=== PATIENT | male | born 1945 | race Caucasian/White ===

== ENCOUNTER → 2016-07-22 | Outpatient (CLI) | payer BC ==
[~2016-07-22] MED LIST: ALPRPOW PO; ASPI81TA28 PO; ATOR-26 PO; CHOL20007 PO; CIPR-255 PO; COEN1CAP7 PO; FERR324T PO; MISCCAP69 PO; MULT-513 PO; PHEN-775 PO; PRLSR20 PO; SERT-234 PO; SLWMEC PO; [UNRECOGNIZED DRUG - OTHER]
--- NOTE | 2016-07-28 11:17 | CODING QUERY MEDICAL NECESSITY ---
CQSUPPORTING DIAGNOSIS NEEDED A supporting diagnosis is required for the test/procedure performed on this patient in order for us to be reimbursed by the patient's insurance. Please provide a supporting diagnosis for the following test/procedure listed below next to the test name along with your signature. *If there is no additional diagnosis for this patient that would support the following test/procedure please document that below next to the test/procedure. Test(s)/Procedure(s) that require a supporting diagnosis: DOS 07/22/16 URINE CULTURE Provider Signature: Date: Thank you Tessa Herman [employer] Once completed, please kindly fax back to [phone] For questions please call [phone]
== END | disposition home or self-care (01) ==
LOC: C.LABSPEC 17:15
PROVIDERS: ATTEND Urology
DX: C67.9 Malignant neoplasm of bladder, unspecified (principal); R31.29 Other microscopic hematuria

== ENCOUNTER → 2016-08-02 | Outpatient (CLI) | payer BC ==
[~2016-08-02] MED LIST changes: -PRLSR20 PO; -[UNRECOGNIZED DRUG - OTHER]
--- NOTE | 2016-08-02 13:59 | ECHOCARDIOGRAM REPORT ---
*NOTICE TO RECEIVING [employer] This information is strictly Confidential and protected under [place] law. [place] law prohibits you from making any further disclosure of this information unless further disclosure is expressly permitted by the written consent of the person to whom it pertains or is authorized by law. A general authorization for the release of medical or other information is not sufficient for this purpose. Hospital accepts no responsibility if the information is made available to any other person, INCLUDING THE PATIENT. Interpretation Summary * Name: BILL MOSS Study Date: 08/02/2016 07:43 AM BP: 119/61 mmHg * Patient Location: [facility] HR: 60 * : 1945 (M/d/yyyy) Gender: Male Height: 71 in * Age: 71 yrs Ethnicity: [place] Weight: 176 lb * Ordering Physician: Frida Stroud * Referring Physician: Frida Stroud . PA-C * Performed By: Katy Haddad RDCS * * Reason For Study: PRE-OP, VALVULAR HEART DISEASE * BSA: 2.0 m2 * -- Conclusions -- * 1. Normal LV size and wall thickness. * 2. Normal LV systolic function. LVEF 65-70%. No regional wall motion abnormalities. * 3. Borderline RV size, normal RV function. * 4. Mild aortic valve sclerosis without stenosis. * 5. Normal estimated RA pressure. * 6. No prior studies for comparison. Procedure Details * A complete two-dimensional transthoracic echocardiogram was performed (2D, M-mode, Doppler and color flow Doppler). Left Ventricle * The left ventricle is grossly normal size. * There is normal left ventricular wall thickness. * Ejection Fraction = 65-70%. * No regional wall motion abnormalities noted. Right Ventricle * Borderline right ventricular enlargement. * The right ventricular systolic function is normal as assessed by tricuspid annular plane systolic excursion (TAPSE) (normal >1.5 cm). Atria * The left atrial size is normal. * Right atrial size is normal. * No ASD detected; PFO is not assessed. Mitral Valve * The mitral valve is grossly normal. * There is no mitral valve stenosis. Tricuspid Valve * The tricuspid valve is not well visualized, but is grossly normal. * There is no tricuspid stenosis. * Significant tricuspid regurgitation is absent. Aortic Valve * The aortic valve opens well. * The aortic valve is trileaflet. * Aortic valve sclerosis mild, without significant aortic valvular stenosis. * No hemodynamically significant valvular aortic stenosis. * There is no significant aortic regurgitation. Pulmonic Valve * The pulmonary valve is inadequately visualized, but the Doppler data is adequate for interpretation. * Pulmonic stenosis is absent. * Trace pulmonic valvular regurgitation. Great Vessels * The aortic root and proximal ascending aorta are normal sized. Pericardium/Pleural * There is no pericardial effusion. Great Vessels * Normal inferior vena cava size and collapsability with sniff indicates a normal right atrial pressure of 3 mmHg MMode 2D Measurements and Calculations IVSd 0.92 cm IVSs 1.4 cm LVIDd 4.7 cm LVIDs 2.9 cm LVPWd 0.82 cm LVPWs 1.4 cm IVS/LVPW 1.1 FS 37.9 % EDV(Teich) 102.4 ml ESV(Teich) 32.8 ml EF(Teich) 68.0 % EDV(cubed) 103.9 ml ESV(cubed) 24.9 ml EF(cubed) 76.0 % % IVS thick 52.5 % % LVPW thick 76.0 % LV mass(C)d 136.2 grams LV mass(C)dI 68.2 grams/m\S\2 LV mass(C)s 139.1 grams LV mass(C)sI 69.6 grams/m\S\2 CO(Teich) 3.8 l/min CI(Teich) 1.9 l/min/m\S\2 SV(Teich) 69.6 ml SI(Teich) 34.9 ml/m\S\2 CO(cubed) 4.3 l/min CI(cubed) 2.1 l/min/m\S\2 SV(cubed) 79.0 ml SI(cubed) 39.5 ml/m\S\2 Ao root diam 3.1 cm Ao root area 7.7 cm\S\2 LA dimension 3.0 cm LA/Ao 0.95 LVAd ap4 33.2 cm\S\2 LVLd ap4 8.3 cm EDV(MOD-sp4) 110.0 ml LVAs ap4 16.1 cm\S\2 LVLs ap4 6.3 cm ESV(MOD-sp4) 35.1 ml EF(MOD-sp4) 68.1 % LVAd ap2 27.5 cm\S\2 LVLd ap2 7.6 cm EDV(MOD-sp2) 85.9 ml LVAs ap2 13.7 cm\S\2 LVLs ap2 5.5 cm ESV(MOD-sp2) 29.6 ml EF(MOD-sp2) 65.5 % CO(MOD-sp4) 4.0 l/min CI(MOD-sp4) 2.0 l/min/m\S\2 SV(MOD-sp4) 74.9 ml SI(MOD-sp4) 37.5 ml/m\S\2 CO(MOD-sp2) 3.0 l/min CI(MOD-sp2) 1.5 l/min/m\S\2 SV(MOD-sp2) 56.3 ml SI(MOD-sp2) 28.2 ml/m\S\2 Doppler Measurements and Calculations MV E max guicho 73.2 cm/sec MV A max guicho 87.3 cm/sec MV E/A 0.84 MV dec time 0.27 sec Ao V2 max 147.7 cm/sec Ao max PG 8.7 mmHg Ao max PG (full) 4.0 mmHg LV V1 max PG 4.7 mmHg LV V1 max 108.8 cm/sec
== END | disposition home or self-care (01) ==
LOC: C.CPL 07:40
PROVIDERS: ATTEND Physician Assistant Medical
DX: R01.1 Cardiac murmur, unspecified (principal); I38 Endocarditis, valve unspecified

== ENCOUNTER → 2016-08-10 | Day surgery (SDC) | payer BC ==
[2016-07-28 07:46] VITALS: BMI 25.0
--- NOTE | 2016-07-28 08:26 | PAT Medication Instructions ---
Service Date July 28, 2016. Current Home Medication List Alprostadil (Bulk) (Prostaglandin E1), 1 DOSE PO UD Aspirin (Aspirin Ec), 81 MG PO QPM Atorvastatin (Lipitor), 80 MG PO HS Cholecalciferol (Vitamin D3), 1 TAB PO QPM Coenzyme Q10 (Ubidecarenone) (Coq10), 1 TAB PO QPM Ferrous Gluconate (Iron Supplement), 324 MG PO QPM Magnesium Chloride (Slow-Mag Tab), 64 MG PO QPM Misc Natural Products (Lutein Vision Blend), 1 CAP PO QPM Multivitamins/Minerals (Mvi With Minerals), 1 TAB PO QPM Sertraline (Zoloft), 100 MG PO QPM Medication Instructions For Your Scheduled Surgery - Hold the following medications as of 07/28/16: Coenzyme Q10 (Ubidecarenone) (Coq10), 1 TAB PO QPM Misc Natural Products (Lutein Vision Blend), 1 CAP PO QPM - Take the following medications as scheduled the night before surgery: Aspirin (Aspirin Ec), 81 MG PO QPM Atorvastatin (Lipitor), 80 MG PO HS Cholecalciferol (Vitamin D3), 1 TAB PO QPM Ferrous Gluconate (Iron Supplement), 324 MG PO QPM Magnesium Chloride (Slow-Mag Tab), 64 MG PO QPM Multivitamins/Minerals (Mvi With Minerals), 1 TAB PO QPM Sertraline (Zoloft), 100 MG PO QPM Alprostadil (Bulk) (Prostaglandin E1), 1 DOSE PO UD If you have any questions please call us at [phone] or [phone] or [phone]
--- NOTE | 2016-07-28 08:52 | DIAGNOSTIC IMAGING REPORT ---
CHEST PREADMISSION(PA/LAT) CLINICAL HISTORY: Preoperative chest COMPARISON STUDY: September 03, 2013 FINDINGS: The cardiac and mediastinal contours are normal. There is no evidence of focal pulmonary consolidation. There is no evidence of failure. No pleural effusions are visualized.[ IMPRESSION: No active disease in the chest. Electronically signed by: Artur Trammell M.D. 07/28/2016 8:50 AM Dictated Date/Time: 07/28/2016 8:46 AM
[2016-07-28 09:23] LABS: URINE APPEARANCE CLEAR (CLEAR); URINE BILIRUBIN NEG (NEG); URINE COLOR YELLOW; URINE NITRITE NEG (NEG); URINE SPECIFIC GRAVITY 1.011 (1.000-1.030); UROBILINOGEN NEG (NEG)
[2016-07-28 09:24] LABS: BASO % 0.4 %; BASO ABS # 0.03 K/uL (0-0.2); COMPLETE YES; EOS % 3.3 %; HEMATOCRIT 42.9 % (42-52); IG% 0.3 %; LYMPH % 31.7 %; MEAN CELL VOLUME 88.1 fL (80-100); MEAN CORPUSCULAR HEMOGLOBIN 30.2 pg (25-34); MEAN CORPUSCULAR HGB CONC 34.3 g/dl (32-36); MEAN PLATELET VOLUME 9.6 fL (7.4-10.4); MONO % 10.4 %; NEUT % 53.9 %; PLATELET COUNT 166 K/uL (130-400); RED BLOOD COUNT 4.87 M/uL (4.7-6.1); WHITE BLOOD COUNT 6.95 K/uL (4.8-10.8)
[2016-07-28 09:25] LABS: MANUAL MICROSCOPIC REQUIRED? NO; REVIEW REQ? NO
[2016-07-28 09:32] LABS: BUN/CREATININE RATIO 14.2 (10-20); CREATININE 1.1 mg/dl (0.60-1.40); POTASSIUM 4.8 mmol/L (3.5-5.1)
[~2016-08-10] VITALS: Ht 180.3 cm; Wt 84.0 kg
[~2016-08-10] MED LIST changes: +ACETAMINOPHEN 325 MG TAB PO PRN; +ATROPINE SULFATE 0.1 MG/ML 5ML SYR IV PRN; +CIPROFLOXACIN / D5W 400 MG IV SCH; +CONRAY 30% 150ML BOTTLE ONE; +EpHEDrine SULFATE INJ 50 MG/ML AMP IV PRN; +FENTANYL CITRATE INJ 50 MCG/1 ML 2 ML VIAL IV PRN; +FENTANYL CITRATE INJ 50 MCG/1 ML 2 ML VIAL ONE; +HYDROCODONE/ACETAMOPHEN 5/325MG TAB PO PRN; +HYDROmorphone INJ 1 MG/ML SYR IV PRN; +LABETALOL HCL IV 5 MG/ML 20ML IV PRN; +LACTATED RINGER'S 1000ML 1,000 ML IV SCH; +LIDOCAINE HCL 2% 2 ML VIAL (20MG/ML) ONE; +MEPERIDINE HCL 25 MG/ML CARP IV PRN; +MIDAZOLAM HCL 1 MG/ML 2ML VIAL ONE; +ONDANSETRON INJ 2 MG/ML 2 ML VIAL IV PRN; +ONDANSETRON INJ 2 MG/ML 2 ML VIAL ONE; +PROPOFOL IV EMULSION 10 MG/ML 20 ML VIAL IV ONE; +SODIUM CHLORIDE 0.9% 1000ML 1,000 ML IV SCH
[2016-08-10 05:56] VITALS: BP 130/70; PULSE 59; TEMP 36.7; O2SAT 95; Ht 180.3 cm; Wt 84.0 kg
--- NOTE | 2016-08-10 07:20 | History & Physical Bridge Note ---
H&P Re-Evaluation Bridge Note: I have examined the patient, reviewed the History & Physical and in the interval since the performance of the History & Physical I have noted the following changes of clinical significance: No changes noted
--- NOTE | 2016-08-10 08:11 | [facility] Post Operative Brief Note ---
Immediate Operative Summary Operative Date August 10, 2016. Pre-Operative Diagnosis Bladder Tumor Post-Operative Diagnosis Bladder Tumor Procedure(s) Performed Cystoscopy, Transurethral resection of the bladder tumor (medium) Surgeon Dr. Nimesh Garg Group Contract Analyst Surgeon(s) None Estimated Blood Loss 0 ml Findings Mounded area on the posterior bladder wall. Adjacent to, but not involving a well healed scar from a prior TURBT. This tumor was resected and fulgurated. Second area just below it with a similar, but less pronounced appearance. This area was fulgurated entirely. Specimens Permanent Specimen A: Bladder tumor Drains none Anesthesia gen Complication(s) None Disposition Recovery Room / PACU (stable)
--- NOTE | 2016-08-10 08:13 | Discharge Instructions ---
Discharge Instructions Date of Service August 10, 2016. Admission Reason for Admission: Bladder Cancer Discharge Discharge Diagnosis / Problem: Bladder tumor Discharge Goals Goal(s): Decrease discomfort, Improve function, Increase independence, Improve disease control Activity Recommendations Activity Limitations: resume your previous activity Lifting Limitations: none, gradually increase as tolerated Exercise/Sports Limitations: none, gradually increase as tolerated May Resume Sexual Activity: when tolerated Shower/Bathe: no limitations Driving or Machine Use: resume 1 day after discharge . Instructions / Follow-Up Instructions / Follow-Up Please keep your previously scheduled follow up appointment Discharge Diet Recommended Diet: Regular Diet Procedures Procedures Performed: Cystoscopy, Transurethral resection of the bladder tumor (medium) Pending Studies Studies pending at discharge: no Medical Emergencies . Who to Call and When: Medical Emergencies: If at any time you feel your situation is an emergency, please call 911 immediately. . Non-Emergent Contact Non-Emergency issues call your: Urologist Call Non-Emergent contact if: you have a fever, temperature is above 101.5, your pain is not controlled, your pain is worsening . . "Provider Documentation" section prepared by Earl Jaramillo. . VTE Core Measure Inpt VTE Proph given/why not?: Treatment not indicated
--- NOTE | 2016-08-10 08:51 | OPERATIVE REPORT ---
DATE OF OPERATION: 08/10/2016 PREOPERATIVE DIAGNOSIS: Bladder tumor. POSTOPERATIVE DIAGNOSIS: Bladder tumor. PROCEDURE PERFORMED: Cystoscopy, TURBT medium. SURGEON: Dr. Nimesh Garg. ANESTHESIA: General. ESTIMATED BLOOD LOSS: 0. URINE OUTPUT: Not recorded. SPECIMENS: Bladder tumor for routine pathology. DESCRIPTION OF THE PROCEDURE: Reji Morales was identified in the preoperative holding area. Appropriate informed consents were reviewed and completed and the patient was transported to the operating suite. Upon arrival he received appropriate preoperative antibiotics and general anesthesia. He was placed in dorsal lithotomy position where he was sterilely prepped and draped in standard fashion. I began the case by passing a 22-Spanish cystoscope with 30 degree lens. Inspection of the urethra revealed no stricture disease and moderately enlarged prostate without significant obstruction. Full inspection of the bladder was carried out. I performed this with both the 30 and 70 degree lens. Ureteral orifices were in orthotopic position. There were no large papillary tumors identified around the bladder neck or the trigone. As I inspected the upper aspect of the posterior wall I noted an old scar and immediately adjacent to it there was a mounded tissue which did not have a standard papillary appearance, but certainly was raised and protruding into the bladder. There also appeared to be a small amount of necrotic material on the very central area of this tumor. I additionally noted that just below this on the posterior wall there was an area of erythema which was not nearly as pronounced as the separate area but worried me for an early stage version of the same type of tumor. After identifying this I felt that using a resecting loop would be the best way to resect this tissue and I exchanged the standard cystoscope for a 24 Spanish resectoscope with the resecting loop. I resected the larger tumor area and fulgurated the base of this as well as the perimeter and then subsequently completely fulgurated the lower area that raised some concerns to me. At the conclusion there was excellent hemostasis. I emptied the bladder and I concluded the case. The specimen was passed off the table and the patient was taken to the PACU in stable condition. I attest to the content of the Intraoperative Record and any orders documented therein. Any exceptio ns are noted below.
[2016-08-10 08:55] VITALS: BP 114/65; PULSE 50; TEMP 36.5; O2SAT 96
[2016-08-10 09:25] VITALS: BP 117/63; PULSE 55; O2SAT 94
--- NOTE | 2016-08-10 09:31 | Anesthesiology Progress Note ---
Anesthesia Post Op Note Date & Time August 10, 2016 at 09:32 Vital Signs Pain Intensity: 0 Vital Signs Past 12 Hours Date Time Temp Pulse Resp B/P Pulse Ox O2 Delivery O2 Flow Rate FiO2 08/10/16 09:25 55 18 117/63 94 Room Air 08/10/16 08:55 36.5 50 16 114/65 96 Room Air 08/10/16 08:40 54 17 105/60 94 Room Air 08/10/16 08:30 49 12 109/66 98 Nasal Cannula 2 08/10/16 08:20 50 18 110/64 97 Nasal Cannula 2 08/10/16 08:10 36.2 45 13 115/71 97 Nasal Cannula 2 08/10/16 05:56 36.7 59 18 130/70 95 Room Air Notes Mental Status: alert / awake / arousable, participated in evaluation Pt Amnestic to Procedure: Yes Nausea / Vomiting: adequately controlled Pain: adequately controlled Airway Patency, RR, SpO2: stable & adequate BP & HR: stable & adequate Hydration State: stable & adequate Anesthetic Complications: no major complications apparent
[2016-08-10 09:55] VITALS: BP 119/67; PULSE 56; TEMP 36.6; O2SAT 94
== END | disposition home or self-care (01) ==
LOC: C.ACU 05:37
PROVIDERS: ATTEND Urology
DX: D09.0 Carcinoma in situ of bladder (principal); I25.10 Atherosclerotic heart disease of native coronary artery without angina pectoris; Z98.61 Coronary angioplasty status; Z79.899 Other long term (current) drug therapy; E78.00 Pure hypercholesterolemia, unspecified; E78.5 Hyperlipidemia, unspecified; Z79.82 Long term (current) use of aspirin; Z85.46 Personal history of malignant neoplasm of prostate; Z98.890 Other specified postprocedural states; Z68.25 Body mass index [BMI] 25.0-25.9, adult; Z82.49 Family history of ischemic heart disease and other diseases of the circulatory system; Z81.8 Family history of other mental and behavioral disorders; Z80.42 Family history of malignant neoplasm of prostate; Z80.8 Family history of malignant neoplasm of other organs or systems

== ENCOUNTER → 2016-11-09 | Outpatient (CLI) | payer BC ==
[~2016-11-09] MED LIST changes: -ACETAMINOPHEN 325 MG TAB PO PRN; -ATROPINE SULFATE 0.1 MG/ML 5ML SYR IV PRN; -CIPROFLOXACIN / D5W 400 MG IV SCH; -CONRAY 30% 150ML BOTTLE ONE; -EpHEDrine SULFATE INJ 50 MG/ML AMP IV PRN; -FENTANYL CITRATE INJ 50 MCG/1 ML 2 ML VIAL IV PRN; -FENTANYL CITRATE INJ 50 MCG/1 ML 2 ML VIAL ONE; -HYDROCODONE/ACETAMOPHEN 5/325MG TAB PO PRN; -HYDROmorphone INJ 1 MG/ML SYR IV PRN; -LABETALOL HCL IV 5 MG/ML 20ML IV PRN; -LACTATED RINGER'S 1000ML 1,000 ML IV SCH; -LIDOCAINE HCL 2% 2 ML VIAL (20MG/ML) ONE; -MEPERIDINE HCL 25 MG/ML CARP IV PRN; -MIDAZOLAM HCL 1 MG/ML 2ML VIAL ONE; -ONDANSETRON INJ 2 MG/ML 2 ML VIAL IV PRN; -ONDANSETRON INJ 2 MG/ML 2 ML VIAL ONE; -PHEN-775 PO; -PROPOFOL IV EMULSION 10 MG/ML 20 ML VIAL IV ONE; -SODIUM CHLORIDE 0.9% 1000ML 1,000 ML IV SCH
--- NOTE | 2016-11-09 09:36 | DIAGNOSTIC IMAGING REPORT ---
ULTRASOUND EXAM AAA SCREEN CLINICAL HISTORY: Z13.6 Screening for AAA (aortic abdominal aneurysm)[id number] COMPARISON STUDY: Abdomen and pelvis CT 09/17/2014. FINDINGS: Normal caliber abdominal aorta measuring up to 1.9 cm in diameter. Right common iliac artery measures 1 cm in diameter. Moderate calcified plaque within the left common iliac artery which is mildly distended at 1.6 cm. IMPRESSION: 1. Normal caliber abdominal aorta. 2. Mild aneurysmal dilatation of the left common iliac artery measuring 1.6 cm in diameter. Electronically signed by: Ever Johnson M.D. 11/09/2016 9:34 AM Dictated Date/Time: 11/09/2016 9:33 AM
== END | disposition home or self-care (01) ==
LOC: C.ULTR 09:03
PROVIDERS: ATTEND Internal Medicine Cardiovascular Disease
DX: Z13.6 Encounter for screening for cardiovascular disorders (principal)

== ENCOUNTER → 2016-11-18 | Outpatient (CLI) | payer BC ==
[2016-11-18 13:02] LABS: ALKALINE PHOSPHATASE 65 U/L (45-117); ALT/SGPT 40 U/L (12-78); AST/SGOT 31 U/L (15-37); BLOOD UREA NITROGEN 16 mg/dl (7-18); BUN/CREATININE RATIO 13.3 (10-20); CALCIUM 8.9 mg/dl (8.5-10.1); CARBON DIOXIDE 28 mmol/L (21-32); CHLORIDE 107 mmol/L (98-107); CHOLESTEROL 125 mg/dl (0-200); CHOLESTEROL/HDL RATIO 3.1; HDL CHOLESTEROL 40 mg/dl; LDL CHOLESTEROL CALCULATED 63 mg/dl; MAGNESIUM 2.4 mg/dl (1.8-2.4); POTASSIUM 4.2 mmol/L (3.5-5.1); SODIUM 140 mmol/L (136-145); TRIGLYCERIDES 112 mg/dl (0-150); VERY LOW DENSITY LIPOPROT CALC 22 mg/dl
[2016-11-18 13:46] LABS: GLUCOSE 97 mg/dl (70-99)
== END | disposition home or self-care (01) ==
LOC: C.LABPVFM 07:37
PROVIDERS: ATTEND Family Medicine
DX: C61 Malignant neoplasm of prostate (principal); I25.10 Atherosclerotic heart disease of native coronary artery without angina pectoris; E78.5 Hyperlipidemia, unspecified; R73.01 Impaired fasting glucose; C67.9 Malignant neoplasm of bladder, unspecified; F41.8 Other specified anxiety disorders; K21.9 Gastro-esophageal reflux disease without esophagitis; E83.42 Hypomagnesemia

== ENCOUNTER → 2016-11-19 | Outpatient (CLI) | payer BC | END | disposition home or self-care (01) | LOC: C.LABPVFM 15:22 | PROVIDERS: ATTEND Family Medicine | DX: C61 Malignant neoplasm of prostate (principal) ==

== ENCOUNTER → 2017-04-04 | Outpatient (CLI) | payer BC | END | disposition home or self-care (01) | LOC: C.PATHSPEC 16:54 | PROVIDERS: ATTEND Urology | DX: D09.0 Carcinoma in situ of bladder (principal) ==

== ENCOUNTER → 2017-05-25 | Outpatient (CLI) | payer BC ==
[2017-05-25 13:29] LABS: ALBUMIN 3.6 gm/dl (3.4-5.0); ALT/SGPT 34 U/L (12-78); AST/SGOT 26 U/L (15-37); BLOOD UREA NITROGEN 18 mg/dl (7-18); CALCIUM 8.6 mg/dl (8.5-10.1); CARBON DIOXIDE 27 mmol/L (21-32); CREATININE 1.08 mg/dl (0.60-1.40); GLUCOSE 98 mg/dl (70-99); POTASSIUM 4.2 mmol/L (3.5-5.1); SODIUM 138 mmol/L (136-145)
[2017-05-25 13:34] LABS: ALKALINE PHOSPHATASE 61 U/L (45-117); CHOLESTEROL 111 mg/dl (0-200); LDL CHOLESTEROL CALCULATED 55 mg/dl; TOTAL PROTEIN 7.4 gm/dl (6.4-8.2)
== END | disposition home or self-care (01) ==
LOC: C.LABPVFM 07:33
PROVIDERS: ATTEND Family Medicine
DX: E78.00 Pure hypercholesterolemia, unspecified (principal); C61 Malignant neoplasm of prostate

== ENCOUNTER 2021-07-07 05:15 | Observation (INO) ==
--- NOTE | 2021-07-02 09:06 | History and Physical Report ---
DATE OF ADMISSION: 07/07/2021. CHIEF COMPLAINT: Bilateral hip pain and discomfort, right side greater than left. HISTORY OF PRESENT ILLNESS: The patient is a 76-year-old gentleman who presents now for surgical kristal atment of his right hip. He has about 2-3 year history of bilateral hip pain and discomfort, the rig ht side is a bit worse than left. He describes mostly groin pain, which is increased with activities . He limps pretty much all day long, but worse as the day goes on. He has difficulty putting his sh oes and socks on. It radiates down to his knee, but no further. He takes anti-inflammatories with m inimal relief. He was actually scheduled for hip surgery in the past, but canceled due to the COVID epidemic. He would now like to have his hip fixed. PAST MEDICAL HISTORY: 1. Coronary artery disease, status post cardiac stent placement in 2005 without signs of problems or symptoms. 2. Depression. 3. Elevated cholesterol. 4. Bladder cancer. 5. Prostate cancer. PAST SURGICAL HISTORY: Includes: 1. Cardiac stent placement x6 back in 2005. 2. Radical prostatectomy. 3. Vitrectomy. 4. Hernia repair bilaterally. 5. Right ankle surgery. ALLERGIES: None. CURRENT MEDICATIONS: Include: 1. Alprostadil. 2. Aspirin. 3. Atorvastatin. 4. Biotin. 5. Coenzyme Q. 6. Iron. 7. Multivitamin. 8. Sertraline. 9. Vitamin B complex. 10. Vitamin E. SOCIAL HISTORY: A 76-year-old gentleman. He lives in [place]. He is with four childre n. One drink per week. FAMILY HISTORY: Significant for heart disease, stroke, melanoma, spindle cell carcinoma. REVIEW OF SYSTEMS: Significant for heart disease, status post stent placement. Describes no current symptoms. No diabetes. No chest pain or shortness of breath. No history of DVT or PE. PHYSICAL EXAMINATION: GENERAL: Shows a pleasant middle-aged male. Looks to be in pretty good health. HEENT: Benign. NECK: Supple. No lymphadenopathy. LUNGS: Clear to auscultation. HEART: Regular rate and rhythm. ABDOMEN: Soft, nontender, nondistended. EXTREMITIES: Grossly neurovascularly intact except as follows. Evaluation of the right hip revealed patient walks independently. He does limp a little bit on his r ight side. The right leg may be just slightly shorter than the left by 1/4 of a centimeter. He has got a very stiff hip with internal rotation to -5. This re-creates his pain. Negative straight leg raise. No knee effusion. He is neurologically intact. X-RAYS: X-rays of the right hip were reviewed. It shows advanced right hip DJD. He has got complet e loss of his superior joint space. He has got moderate left hip arthritis. ASSESSMENT: A 76-year-old male with bilateral hip degenerative joint disease, right side more sympto matic than the left. He has failed conservative measures. He would like to have his hip fixed. He has been scheduled for this in the past, but canceled due to the COVID epidemic. PLAN: We will take him to the operating room and do right total hip replacement. The risks and bene fits of this procedure were explained to the patient and include but not limited to DVT, PE, , i nfection, neurological injury, vascular injury, bleeding problem, pain, limited range of motion, stif fness, failure to relieve symptoms, incomplete relief of symptoms, need for further surgery in the fu ture, fracture, leg length inequality, nerve palsy, etc. The patient understands and desires to proc eed. Informed consent was obtained. As far as discharge plans, he is planning to be discharged to home with home health in his 's ass istance. He will use the [facility] program. Job ID: [id number]
--- NOTE | 2021-07-03 11:41 | Anesthesiology Consultation ---
Date of Service July 03, 2021 Assessment & Plan (1) Encounter for pre-operative examination: - check CBC with diff and coags am DOS given chemotherapy. - cardiology office visit 01/12/2021 [place]: "...CAD (RCA stents x , 2005)...active on a daily basis...stable from a cardiovascular standpoint...coronary artery disease remains quiescent his current medical regimen [sic]. He demonstrates excellent functional status thus making himacceptable cardiac risk for hip replacement surgery. No further cardiac testing is indicated at this time..." -anesthesia record colonoscopy with polypectomy 02/14/2019:Pt coughing in PACU, O2 91% with coarse breath sounds. Duoneb administered with near resolution of coughing, O2 increase to 100%. Presumed saliva aspiration per anesthesia progress note. CXR read no acute disease. No subsequent issues per anesthesia record, chart review and pt discussion at [facility]. open left indirect inguinal hernia repair 10/17/2018: LMA#4, atraumatic. No issues per anesthesia progress note. - COVID screening: Per arts administrator or manager on 07/02/2021: Travel screen-returned from [place] 06/13/21 via plane, no known COVID-19 positive contacts or current COVID- 19 related symptoms in past 2 weeks. Patient vaccinated. Surgeon arranging preop COVID testing, scheduled 07/03/2021. Awaiting results. Chart Review Chart Review: Acceptable Risk for Surgery and Patient NOT seen in Pre Admission Testing History Surgery Operation Date: 07/07/21 11:10 Proposed Procedures p Right Total Hip Arthroplasty - Curry Mcfarland MD Surgery re-scheduled from 02/2021. Height/Weight Height: 5 ft 8 in Weight: 75.75 kg Allergies Allergy/AdvReac Type Severity Reaction Status Date / Time No Known Allergies Allergy Unknown Verified 07/02/21 12:38 Medications Home Medications Medication Instructions Recorded Confirmed Last Taken aspirin 81 mg tablet,delayed 81 mg PO HS 01/30/18 07/02/21 02/13/19 19:00 release coenzyme Q10 100 mg capsule 100 mg PO HS 01/30/18 07/02/21 12/03/18 (CoQ-10) multivit with 1 tab PO HS 01/30/18 07/02/21 12/03/18 zki-ilal-AO-#[id number] 18 mg iron-800 mcg-150 mg tablet (Vitamin D3 Complete) vitamin E 1,000 unit capsule 1,000 unit PO HS 01/30/18 07/02/21 12/03/18 biotin 2,500 mcg capsule 2,500 mcg PO HS 06/21/18 07/02/21 12/03/18 iron,carbonyl 65 mg-vitamin C 125 1 tab PO HS 07/04/18 07/02/21 12/03/18 mg tablet,delayed release (Vitron-C) znutjyuk-ccl-hwvli acid 300 1 tab PO HS 09/25/18 07/02/21 12/03/18 mcg-lycopene 600 mcg-lutein 300 mcg tablet (Centrum Silver Men) vitamin B complex (B 1 tab PO HS 11/09/18 07/02/21 12/03/18 Complex-Vitamin B12) sertraline 100 mg tablet 100 mg PO HS #90 tab 07/17/20 07/02/21 Unknown atorvastatin 80 mg tablet 80 mg PO HS #90 tab 05/12/21 07/02/21 Unknown Past Medical History Medical History Anemia stable per pt Bladder cancer 2013 - TURBT 2017, ongoing monthly chemo CAD (coronary artery disease) follows with dr. page, s/p 6 stents placed in [facility] in 2005; stable per 12/2020 cardio note Chronic back pain Depression with anxiety Hearing deficit wears hearing aids History of blood transfusion 2008 d/t bleeding in bladder per pt HLD (hyperlipidemia) Insect bite of leg, left Lumbar spondylosis Maintenance chemotherapy per pt, intravesical chemotherapy once monthly Prostate cancer 10/2004--prostatectomy Sleep apnea CPAP-nightly compliance Past Family History Family History Mother , Age 90 Congestive heart failure Anxiety disorder Depression Father , Age 79 Malignant melanoma of skin Heart disease Leukemia Myocardial infarction Brother Prostate cancer Spindle cell sarcoma Melanoma Other Cancer Denies family history of Ovarian cancer Breast cancer Colorectal cancer Past Surgical History Surgical History H/O cataract removal with insertion of prosthetic lens bilat H/O radical prostatectomy 2004 History of biopsy of bladder x2 History of bladder surgery x2; TURBT on 02/14/2018: LMA #4, atraumatic x 1. No issues per anesthesia progress note. History of cardiac cath 2006 with 6 stents [place] [facility] [place] History of colonoscopy with polypectomy 02/14/2019 anesthesia progress note: "The patient came to the PACU coughing with an 02 sat of 91. His breath sounds were coarse. He was given a duoneb treatment with almost complete resolution of his coughing, his 02 sat rudi to 100% and he felt much better. I presume that he aspirated saliva as there was no apparent aspiration during the procedure. The patient was presumed to have aspirated saliva and a CXR was odered which was read as no acute disease.He was coached to cough and deep breathe and he was discharged with a room air sat of 99%. He was discharged with an incentive spirometer and instructed to call Dr. Valencia or go to the ED if he develops a fever." No subsequent issues upon chart review, confirmed by pt at 2020 PAT appointment. History of cystoscopy multiple d/t bladder cancer History of detached retina repair right x2 History of esophagogastroduodenoscopy (EGD) History of open reduction and internal fixation (ORIF) procedure right ankle--hardware in place History of prostate biopsy malignant History of repair of inguinal hernia Open Left Indirect Inguinal Hernia repair 10/17/2018: LMA#4, atraumatic. No issues per anesthesia progress note. History of right inguinal hernia repair History of tonsillectomy and adenoidectomy History of tooth extraction History of vitrectomy x2 (right) History of wisdom tooth extraction S/P LASIK surgery of both eyes Social History Smoking Status: Former smoker tobacco type: cigarettes Do You Dip or Chew Tobacco: No Smoking End Date: quit 1981 Hx Alcohol Use: Yes Alcohol type: beer, wine and hard liquor alcohol intake frequency: a few times a week Hx Substance Use: No substance use type: does not use Lab Results Anesthesia Preop Results Results Anesthesia Widget: WBC 8.05 K/uL (4.8-10.8) 05/19/21 Hgb 13.6 g/dL (14.0-18.0) L 05/19/21 Hct 40.8 % (42-52) L 05/19/21 Plt 201 K/uL (130-400) 05/19/21 Na 139 mmol/L (136-145) 05/19/21 K 4.3 mmol/L (3.5-5.1) 05/19/21 Cl 106 mmol/L (98-107) 05/19/21 CO2 29 mmol/L (21-32) 05/19/21 BUN 16 mg/dl (6-23) 05/19/21 Creat 0.99 mg/dl (0.6-1.4) 05/19/21 Glucose Level 101 mg/dl (70-99(Fasting)) H 05/19/21 TSH 1.792 uIu/ml (0.300-4.500) 05/19/21 Testing Electrocardiogram Date: 02/12/21 Sinus bradycardia with frequent Premature atrial complexes, rate 59 bpm. Chest X-Ray Date: 02/12/21 No acute chest disease. Stress Test Date: 05/22/19 Dobutamine stress echocardiogram Negative for ischemia at 87% MPHR Left ventricle normal in size, wall thickness and systolic function No evidence of wall motion abnormalities present
[~2021-07-07 05:15] MED LIST changes: -ALPRPOW PO; -ASPI81TA28 PO; -ATOR-26 PO; -CHOL20007 PO; -CIPR-255 PO; -COEN1CAP7 PO; -FERR324T PO; +GENERAL ORDER PROBLEM SCH; -MISCCAP69 PO; -MULT-513 PO; -SERT-234 PO; -SLWMEC PO
[2021-07-07] MEDS ORDERED: ACETAMINOPHEN 500 MG TAB PO SCH (06:00)
[2021-07-07] MEDS ORDERED: ceFAZolin 2000MG 2,000 MG/15 ML SYR IV SCH (06:00)
[2021-07-07] MEDS ORDERED: FAMOTIDINE 20 MG TAB PO SCH (06:00)
[2021-07-07] MEDS ORDERED: METOCLOPRAMIDE HCL 10 MG TABLET PO SCH (06:00)
[2021-07-07] MEDS ORDERED: LR 60ML/HR IV SCH (06:00)
[2021-07-07] MEDS ORDERED: TRANEXAMIC ACID 1,000 MG **IV Pre-op IV SCH (06:00)
[2021-07-07] MEDS ORDERED: LR 500ML BOLUS, THEN 15ML/HR IV SCH (06:00)
[2021-07-07] MEDS ORDERED: Scopolamine 1 MG TDSY TD SCH (06:00)
[2021-07-07 06:13] LABS: Basophils # (auto) 0.03 K/uL (0-0.2); Basophils % (auto) 0.4 %; Eosinophils # (auto) 0.17 K/uL (0-0.5); Eosinophils % (auto) 2.4 %; Hematocrit (blood only) 38.3 % (42-52); Hemoglobin 13.4 g/dL (14.0-18.0); Lymphocytes # (auto) 2.31 K/uL (1.2-3.4); Lymphocytes % (auto) 33.2 %; Mean Corpuscular Volume 88.7 fL (80-100); Mean Platelet Volume 9.3 fL (7.4-10.4); Monocytes # (auto) 0.98 K/uL (0.11-0.59); Monocytes % (auto) 14.1 %; Neutrophils # (auto) 3.47 K/uL (1.4-6.5); Neutrophils % (auto) 49.9 %; Platelet Count 199 K/uL (130-400); RDW Coefficient of Variation 13.1 % (11.5-14.5); RDW Standard Deviation 42.6 fL (36.4-46.3); Red Blood Count 4.32 M/uL (4.7-6.1); White Blood Count 6.96 K/uL (4.8-10.8)
[2021-07-07 06:23] LABS: Partial Thromboplastin Time 27.6 Seconds (21.0-31.0); Prothrombin Time 10.8 Seconds (9.0-12.0)
[2021-07-07] MEDS ORDERED: EPINEPHrine INJ 1 MG/ML AMP ONE (06:33)
[2021-07-07] MEDS ORDERED: BUPIVACAINE 0.5 % 5 MG/1 ML MPF 30ML VIAL ONE (06:33)
[2021-07-07] MEDS ORDERED: BUPIVACAINE 0.5 % 5 MG/1 ML PF 10ML VIAL ONE (06:35)
[2021-07-07] MEDS ORDERED: LIDOCAINE 2% 2 ML VIAL/AMP(20MG/ML) INFIL ONE (06:42)
[2021-07-07] MEDS ORDERED: MoRPHine SULFATE PF 1 MG/ML 10 ML AMP/VIAL ONE (06:42)
[2021-07-07] MEDS ORDERED: MIDAZOLAM HCL 1 MG/ML 2ML VIAL ONE (06:42)
[2021-07-07] MEDS ORDERED: PROPOFOL IV EMULSION 10 MG/ML 20 ML VIAL IV ONE (06:42)
--- NOTE | 2021-07-07 06:54 | History & Physical Bridge Note ---
Date of Service July 07, 2021 History & Physical Bridge Note I have examined the patient, reviewed the History & Physical and in the interval since the performance of the History & Physical I have noted the following changes of clinical significance: no changes noted
[2021-07-07] MEDS ORDERED: ePHEDrine sulfate 50 MG/ML AMP IV PRN (06:58)
[2021-07-07] MEDS ORDERED: ONDANSETRON INJ 2 MG/ML 2 ML VIAL IV PRN ×2 (06:58→09:46)
[2021-07-07] MEDS ORDERED: fentaNYL citrate 100 MCG/2 ML VIAL IV PRN (06:58)
[2021-07-07] MEDS ORDERED: ATROPINE SULFATE 0.1 MG/ML 10ML SYR IV PRN (06:58)
[2021-07-07] MEDS ORDERED: ePHEDrine sulfate 50 MG/ML SYR ONE (08:01)
[2021-07-07] MEDS ORDERED: PHENYLEPHRINE 100MCG/ML 5ML SYR ONE (08:01)
--- NOTE | 2021-07-07 08:44 | Operative Report ---
PG Post Operative Report Pre & Post Diagnosis Operation Date: 07/07/21 07:00 Pre-Op Diagnosis: Advanced Right Hip Degenerative Joint Disease Post-Op Diagnosis: Advanced Right Hip Degenerative Joint Disease I identified the patient and participated in the time-out.: Yes Procedure Operation Date: 07/07/21 07:00 Actual Procedures p Right Total Hip Arthroplasty--Uncemented(Right) - Curry Mcfarland MD Surgeon Curry Mcfarland MD Livestock Broker Yusuf Thomas PA-C Estimated Blood Loss 200 Findings Consistent with Post-Op Diagnosis Operative findings revealed advanced right hip DJD. He had extensive grade 4 kaly-sy-ayoc disease the femoral head and acetabulum. He did have an anterior acetabular osteophyte and a posterior and inferior acetabular osteophytes. Moderate-sized joint effusion. Fluids 1000 cc Specimens Right femoral head sent for pathology Drains None Anesthesia Type Spinal MAC Complications none Disposition Accompanied Patient To Recovery: Yes Indications Patient is 76-year-old gentleman said a several year history of gradual increase in bile hip pain discomfort right side greater than left. He failed conservative measures. X-rays show progressive hip arthritis. He elected proceed with right total hip arthroplasty. Description of Procedure Operative implants consist of: 1. Biomet G7 size 54 mm acetabular cup. 2. 6.5 cancellous acetabular screws 1 of 35 mm in length and 1 of 30 mm length. 3. [place] hole human resource adviser. 4. 54 mm x 36mm highly cross-linked polyethylene liner. 5. Mitul Corail size 11 KLA femoral stem. 6. +5/36 mm ceramic articular ball. The patient was taken to the operating, identified, placed on the operating table supine position protectors were properly padded. IV antibiotics tried by anesthesia team. Spinal anesthetic had been implemented holding area. Medrano catheter was placed in sterile fashion. The patient then placed in the left lateral decubitus position. An axillary roll was placed. A Stulberg hip positioner was used for positioning. The right hip and leg were then prepped and draped in usual sterile fashion. A posterior lateral approach to the right hip was then performed to a curvilinear incision centered over the greater trochanter. Sharp dissection carried through subcutaneous this down over the IT band gluteal fascia the IT band gluteal fascia incised longitudinally in line with skin incision. The underlying greater bursa was excised. The piriformis and external rotators were tagged and taken off the posterior aspect of the hip joint capsule. Great care was taken throughout the procedure protect the sciatic nerve at all times. Posterior capsulotomy was then performed in the large flap for later repair. Hip was internally rotated and dislocated. Femoral neck osteotomy cut was made with Final Cut 10 mm above the lesser trochanter. The femur was retracted anteriorly. Attention drawn the acetabulum. The acetabular labrum was excised per the pulmonary fat was excised. Sequential reaming the acetabular was then performed beginning with a 45 and progressing up to 53. I then reamed a little bit with a 54 reamer and then placed a 54 mm cup. We placed this in about 40 degrees lateral opening and 20 degrees of anteversion. Was fixed with two 6.5 cancellous acetabular screws. Anterior acetabular osteophyte was removed. Trial liner was placed. Attention drawn the femur. The proximal femur was entered with a cookie-cutter followed by canal finder. I then broached begin the size 8 progressing up to 11. We got excellent fit at 11. We then trialed the hip and the hip was fully stable in full extension and external rotation and flexion to 9 degrees internal rotation over 50 degrees. The leg length seemed appropriate and soft tissue tension seemed appropriate. I elect to place these implants. All trial implants were removed. An apex hole human resource adviser was placed. Highly cross-linked polyethylene liner was placed. A DePuy size 11 KLA femoral stem was impacted in position. A +5/36 mm ceramic articular ball was placed. Hip was located once again found to be stable. Attention drawn toward closing. The wounds irrigated scope soft pulsatile lavage solution. I did inject locally with 60 cc of half percent Marcaine with epinephrine. Posterior capsule and external rotators were then repaired through drill holes in the posterior trochanter with #2 Tycron suture. The IT band gluteal fascia then closed #1 PDS suture running fashion for subcutaneous tissues then closed 2 layers the deep layer #1 Vicryl suture and subcutaneous tissues with 2-0 Dexon suture in a buried interrupted fashion. Skin was closed skin deirdre. Leg was then cleaned and dried a sterile dressing with Xeroform, 4 x 4's, sterile ABD pad, foam tape was applied. Patient then transferred to the recovery room in stable condition. Patient tolerated procedure well and there were no complications. Yusuf Thomas, my physician editorial assistant, was present for the entire procedure. His assistance was essential and required for appropriate patient positioning, p repping and draping, surgical exposure, performing the technical details of the operation, placement the implants, closure of the wound, and placement of the sterile bandage. I attest to the content of the Intraoperative Record and any orders documented therein. Any exceptions are noted below.
--- NOTE | 2021-07-07 09:05 | XRay Report ---
XR hip 1V RT w pelvis HISTORY: 76 years-old Male IN PACU - A/P PELVIS and LATERAL HIP right hip total joint arthroplasty COMPARISON: Pelvis and hip radiographs 07/18/2020 TECHNIQUE: AP view of the pelvis with crosstable lateral view of the right hip FINDINGS: Moderate left hip osteoarthritis. Surgical clips project over the mid pelvis. Right hip total joint a rthroplasty with lateral skin deirdre and expected postoperative air. No acute fracture or unexpected opaque foreign body identified. IMPRESSION: Right hip total joint arthroplasty with expected postoperative changes. ACT 112: Negative or not required by law. The above report was generated using voice recognition software. It may contain grammatical, syntax o r spelling errors. Electronically signed by: Jourdan Espinal M.D. 07/07/2021 9:04 AM
--- NOTE | 2021-07-07 09:10 | Anesthesiology Progress Note ---
Date of Service July 07, 2021 Anesthesia Post Procedure Vital Signs Vital Signs: Temp Pulse Pulse Resp BP Pulse Ox 07/07/21 08:55 58 L 14 109/51 L 97 07/07/21 08:45 57 L 15 111/65 99 07/07/21 08:35 58 L 17 110/50 L 98 07/07/21 08:27 36.2 C L 59 L 16 109/54 L 98 07/07/21 05:35 37.2 C 55 L 18 125/67 96 Transfer of Care Handoff Completed per policy Notes Mental Status: alert / awake / arousable and participated in evaluation Patient Amnestic to Procedure: Yes Nausea / Vomiting: adequately controlled Pain: adequately controlled Airway Patency, RR, SpO2: stable & adequate BP & HR: stable & adequate Hydration State: stable & adequate Neuraxial Anesthesia: was administered and sensory block is resolving Anesthetic Complications: no major complications apparent and Pt Satisfied with anesthetic care
[2021-07-07] MEDS ORDERED: NON-FORMULARY MEDICATION (Amino Acids [Amino Acid] Capsule) PO SCH (09:46)
[2021-07-07] MEDS ORDERED: traMADol HCL 50 MG TABLET PO PRN (09:46)
[2021-07-07] MEDS ORDERED: METOCLOPRAMIDE HCL INJ 5 MG/ML 2 ML VIAL IV PRN (09:46)
[2021-07-07] MEDS ORDERED: bisacodyL 10 MG SUPP PR PRN (09:46)
[2021-07-07] MEDS ORDERED: HYDROmorphone INJ 0.5 MG/0.5 ML SYR IV PRN (09:46)
[2021-07-07] MEDS ORDERED: NALOXONE HCL 0.4 MG/1 ML VIAL/CARP IV PRN (09:46)
[2021-07-07] MEDS ORDERED: ALUMINUM/MAGNESIUM SUSP 30 ML UDC PO PRN (09:46)
[2021-07-07] MEDS ORDERED: MAGNESIUM HYDROXIDE SUSP 30 ML UDC PO PRN (09:46)
[2021-07-07] MEDS: SODIUM CHLORIDE 0.9% 1000ML 1,000 ML IV SCH ×2 (10:21→21:41)
[2021-07-07] MEDS: KETOROLAC TROMETHAMINE 15 MG/ML VIAL IV SCH ×2 (11:34→18:06)
[2021-07-07] MEDS: MULTIVITAMIN TAB PO SCH (11:38)
[2021-07-07] MEDS: ASPIRIN 81 MG ECTAB PO SCH ×2 (11:38→21:45)
[2021-07-07] MEDS: TAMSULOSIN HCL 0.4 MG CAP PO SCH (11:38)
[2021-07-07] MEDS: DOCUSATE SODIUM/SENNA 50/8.6MG TAB PO SCH (11:38)
[2021-07-07] MEDS ORDERED: KETOROLAC TROMETHAMINE 15 MG/ML VIAL IV SCH (12:00)
[2021-07-07] MEDS ORDERED: TRANEXAMIC ACID / 0.7% NACL 1,000 MG/100 ML BAG IV SCH (14:45)
[2021-07-07] MEDS: ACETAMINOPHEN 500 MG TAB PO SCH ×2 (15:18→21:47)
[2021-07-07] MEDS: ceFAZolin 2000MG 2,000 MG/15 ML SYR IV SCH (16:59)
[2021-07-07] MEDS: Scopolamine CHECK PATCH PLACEMENT SCH (17:06)
[2021-07-07] MEDS: ASCORBIC ACID 500 MG TAB PO SCH (18:05)
--- NOTE | 2021-07-07 18:32 | Progress Notes ---
DATE OF SERVICE: 07/07/2021. SUBJECTIVE: A 76-year-old gentleman, postoperative from a right hip replacement. He is doing pretty well. Some pain, but taking some pain medicine and doing well with that. No chest pain or shortnes s of breath. Not feeling dizzy or lightheaded. OBJECTIVE: VITAL SIGNS: Temperature 36.4. Vital signs are stable. PHYSICAL EXAMINATION: GENERAL: Shows a pleasant, elderly male. He is sitting up in bed, eating dinner and looks comfortab le. LUNGS: Clear to auscultation. HEART: Has a regular rate and rhythm. ABDOMEN: Soft, nontender, nondistended. EXTREMITIES: Grossly neurovascularly intact except as follows: Examination of the right hip and leg reveals leg lengths to be equal. Hip is located. Dressing is clean, dry and intact. Thigh is soft and supple. He can dorsiflex and plantarflex his foot appropriately. X-RAYS: X-rays of the right hip from recovery room are reviewed. It shows a right uncemented total hip arthroplasty. Components looked to be in good position. No signs of problems. ASSESSMENT: A 76-year-old gentleman, postoperative from right hip replacement, doing well. Pain is controlled. Hip is located. He is neurologically intact. PLAN: 1. DVT prophylaxis includes thigh-high TEDs, SCDs, and aspirin twice a day. 2. PT/OT. He can weight bear as tolerated in the right leg. 3. Pain control, doing well with current pain regimen. 4. IV antibiotics x24 hours. 5. Disposition: Plan to discharge him to home with home health once adequately recovered and medica lly stable. We will see how he does in therapy tomorrow. Job ID: [id number]
[2021-07-07] MEDS ORDERED: BIOTIN 2500 MCG PO SCH (21:00)
[2021-07-07] MEDS ORDERED: IRON PO SCH (21:00)
[2021-07-07] MEDS ORDERED: NON-FORMULARY MEDICATION (Coenzyme Q10 [Coq-10] 100 mg Capsule) PO SCH (21:00)
[2021-07-07] MEDS ORDERED: TOCOPHERYL, DL-ALPHA 400 UNITS 180 MG CAP PO SCH (21:00)
[2021-07-07] MEDS ORDERED: VITAMIN B COMPLEX TAB PO SCH (21:00)
[2021-07-07] MEDS ORDERED: NON-FORMULARY MEDICATION (Iron,Carbonyl-Vitamin C [Vitron-C] 65 mg iron- 125 mg Tablet,Del PO SCH (21:00)
[2021-07-07] MEDS ORDERED: ATORVASTATIN 40 MG TAB PO SCH (21:00)
[2021-07-07] MEDS ORDERED: SENNA 8.6 MG TAB PO SCH (21:00)
[2021-07-07] MEDS ORDERED: [UNRECOGNIZED DRUG - OTHER] PO SCH (21:00)
[2021-07-07] MEDS ORDERED: SERTRALINE HCL 100 MG TABLET PO SCH (21:00)
[2021-07-07] MEDS: AMOXICILLIN/CLAVULANATE 875 MG TAB PO SCH (21:44)
[2021-07-07] MEDS: DOCUSATE SODIUM 100 MG CAP PO SCH (21:45)
[2021-07-08] MEDS: Scopolamine CHECK PATCH PLACEMENT SCH ×2 (00:54→08:33)
[2021-07-08] MEDS: ceFAZolin 2000MG 2,000 MG/15 ML SYR IV SCH (00:54)
[2021-07-08] MEDS: KETOROLAC TROMETHAMINE 15 MG/ML VIAL IV SCH ×2 (00:55→05:54)
[2021-07-08] MEDS ORDERED: SODIUM CHLORIDE 0.9% 1000ML 1,000 ML IV ONE (03:34)
[2021-07-08] MEDS: SODIUM CHLORIDE 0.9% 1000ML 1,000 ML IV SCH (04:52)
[2021-07-08] MEDS: ACETAMINOPHEN 500 MG TAB PO SCH (05:54)
[2021-07-08 07:14] LABS: BUN Creatinine Ratio 15.8 (10-20); Calcium 7.3 mg/dl (8.5-10.1); Creatinine Clr Calc Pharmacy 52.5 ml/min; Est GFR (African American) 71.5 ml/min; Est GFR (Non-African American) 61.7 ml/min
[2021-07-08 07:20] LABS: Basophils # (auto) 0.01 K/uL (0-0.2); Basophils % (auto) 0.1 %; Eosinophils # (auto) 0.06 K/uL (0-0.5); Eosinophils % (auto) 0.6 %; Hemoglobin 9.4 g/dL (14.0-18.0); Immature Granulocytes # (auto) 0.01 K/uL (0.00-0.02); Immature Granulocytes % (auto) 0.1 %; Lymphocytes # (auto) 1.25 K/uL (1.2-3.4); Lymphocytes % (auto) 12.2 %; Mean Corpuscular Hemoglobin 30.3 pg (25-34); Mean Corpuscular Hgb Conc 33.6 g/dL (32-36); Mean Corpuscular Volume 90.3 fL (80-100); Mean Platelet Volume 9.3 fL (7.4-10.4); Monocytes # (auto) 1.47 K/uL (0.11-0.59); Monocytes % (auto) 14.3 %; Neutrophils # (auto) 7.48 K/uL (1.4-6.5); Neutrophils % (auto) 72.7 %; Platelet Count 149 K/uL (130-400); RDW Coefficient of Variation 13.5 % (11.5-14.5); White Blood Count 10.28 K/uL (4.8-10.8)
[2021-07-08] MEDS ORDERED: dexAMETHasone 10 MG in SYRINGE 0 ML IV SCH (08:00)
[2021-07-08] MEDS: MULTIVITAMIN TAB PO SCH (08:31)
[2021-07-08] MEDS: DOCUSATE SODIUM/SENNA 50/8.6MG TAB PO SCH (08:31)
[2021-07-08] MEDS: ASPIRIN 81 MG ECTAB PO SCH (08:31)
[2021-07-08] MEDS: ASCORBIC ACID 500 MG TAB PO SCH (08:32)
[2021-07-08] MEDS: DOCUSATE SODIUM 100 MG CAP PO SCH (08:32)
[2021-07-08] MEDS: AMOXICILLIN/CLAVULANATE 875 MG TAB PO SCH (08:32)
[2021-07-08] MEDS: TAMSULOSIN HCL 0.4 MG CAP PO SCH (11:01)
--- NOTE | 2021-07-14 16:16 | Discharge Summary ---
Date of Service July 14, 2021 Discharge Data Procedures Performed Operation Date: 07/07/21 07:00 Actual Procedures p Right Total Hip Arthroplasty--Uncemented(Right) - Curry Mcfarland MD Hospital Course (1) S/P total right hip arthroplasty: This patient is a 76 year old patient admitted on 07/07/21 and underwent total hip arthroplasty. He tolerated the procedure well and there were no complications. Transferred to the PACU post op and later to the orthopedic floor for further care. He was given ancef for antibiotic prophylaxis. He was also given GILBERTO stockings, SCDs, and aspirin for DVT prophylaxis. Hemoglobin, hematocrit, and vital signs were monitored during his hospital stay and remained stable. Did not require any blood transfusions. There were no complications du ring his hospital stay. By post op day #1 the patient was tolerating a regular diet, pain was reasonably controlled with oral pain medicine, and he was participating in physical therapy. On post op day #1 the patient was discharged home and set up with home health care. He was given printed discharge instructions including prescriptions for extra strength tylenol, aspirin, zofran, toradol, and tramadol. Continue physical therapy, weight bearing as tolerated. Continue hip precautions. Continue GILBERTO stockings. Follow up approximately 2 weeks post op or sooner if there are problems or concerns. Coding Level of Care Code None Diagnoses S/P total right hip arthroplasty Z96.641
== END 2021-07-08 13:29 | disposition home health service (06) ==
LOC: 3E 05:15 → ASU 05:15
DX: Z87.891 Personal history of nicotine dependence; Z99.89 Dependence on other enabling machines and devices; Z95.5 Presence of coronary angioplasty implant and graft; M16.11 Unilateral primary osteoarthritis, right hip; Z90.79 Acquired absence of other genital organ(s); Z79.82 Long term (current) use of aspirin; I25.10 Atherosclerotic heart disease of native coronary artery without angina pectoris; Z98.890 Other specified postprocedural states; Z79.899 Other long term (current) drug therapy; E78.5 Hyperlipidemia, unspecified; G47.33 Obstructive sleep apnea (adult) (pediatric); K08.409 Partial loss of teeth, unspecified cause, unspecified class

== ENCOUNTER 2021-12-02 09:33 | Observation (INO) ==
--- NOTE | 2021-11-12 15:56 | Anesthesiology Consultation ---
Date of Service November 12, 2021 Assessment & Plan (1) Encounter for pre-operative examination: - COVID screening: Per assessment on 11/12: No known COVID-19 positive contacts or current COVID-19 related symptoms. Travel screen negative. Patient vaccinated. At surgeon discretion if preop Covid testing being done. - Outpatient joint assessment: Patient currently scheduled as inpatient pathway. If surgeon requests review for outpatient joint pathway, patient is not acceptable candidate for outpatient joint program from anesthesia standpoint. - S/P Colonoscopy (02/14/19): Per anesthesia progress note, "The patient came to the PACU coughing with an 02 sat of 91. His breath sounds were coarse. He was given a duoneb treatment with almost complete resolution of his coughing, his 02 sat rudi to 100% and he felt much better. I presume that he aspirated saliva as there was no apparent aspiration during the procedure. The patient was presumed to have aspirated saliva and a CXR was odered which was read as no acute disease.He was coached to cough and deep breathe and he was discharged with a room air sat of 99%. He was discharged with an incentive spirometer and instructed to call Dr. Valencia or go to the ED if he develops a fever." No subsequent issues upon chart review, confirmed by pt at 2020 PAT appointment. - Cardiology office visit (01/12/21): "The patient is scheduled undergo right total hip replacement surgery with Dr. Mcfarland on March 10 [surgery was postponed and done 07/07/21 at [facility]].. The patient is stable from a cardiovascular standpoint. He demonstrates excellent control of his blood pressure and LDL cholesterol. His coronary artery disease remains quiescent his current medical regimen. He demonstrates excellent functional status thus making him acceptable cardiac risk for hip replacement surgery. No further cardiac testing is indicated at this time." - S/P Right MIGUEL (07/07/21): SAB at L3/4 x1 attempt at [facility]. No issues noted per post-op anesthesia progress note. - Check CBC AM DOS (on maintenance chemo) Chart Review Chart Review: Acceptable Risk for Surgery and Patient NOT seen in Pre Admission Testing History Surgery Operation Date: 11/23/21 10:50 Proposed Procedures p Left Total Hip Arthroplasty - Curry Mcfarland MD Height/Weight Height: 5 ft 8 in Weight: 73.028 kg Allergies Allergy/AdvReac Type Severity Reaction Status Date / Time No Known Allergies Allergy Unknown Verified 11/12/21 11:03 Medications Home Medications Medication Instructions Recorded Confirmed Last Taken aspirin 81 mg tablet,delayed 81 mg PO HS 01/30/18 11/12/21 07/06/21 21:30 release coenzyme Q10 100 mg capsule 100 mg PO HS 01/30/18 11/12/21 06/30/21 21:30 (CoQ-10) multivit with 1 tab PO HS 01/30/18 11/12/21 07/06/21 21:30 [id number] 18 mg iron-800 mcg-150 mg tablet (Vitamin D3 Complete) vitamin E 670 mg (1,000 unit) 1,000 unit PO HS 01/30/18 11/12/21 06/30/21 21:30 capsule biotin 2,500 mcg capsule 2,500 mcg PO HS 06/21/18 11/12/21 06/30/21 21:30 iron,carbonyl 65 mg-vitamin C 125 1 tab PO HS 07/04/18 11/12/21 07/06/21 21:30 mg tablet,delayed release (Vitron-C) [id number] acid 300 1 tab PO HS 09/25/18 11/12/21 07/06/21 21:30 mcg-lycopene 600 mcg-lutein 300 mcg tablet (Centrum Silver Men) vitamin B complex (B 1 tab PO HS 11/09/18 11/12/21 07/06/21 21:30 Complex-Vitamin B12 tablet) atorvastatin 80 mg tablet 80 mg PO HS #90 tabs 05/12/21 11/12/21 07/06/21 21:30 acetaminophen 500 mg capsule 1,000 mg PO TID Pain 30 days #180 07/04/21 11/12/21 07/06/21 21:30 caps amino acids (Amino Acid capsule) 2 cap PO TID 07/07/21 11/12/21 07/06/21 21:30 amoxicillin 875 mg-potassium 1 tab PO UD PRN dental appt 07/07/21 11/12/21 07/06/21 21:30 clavulanate 125 mg tablet sertraline 100 mg tablet 100 mg PO HS #90 tabs 10/13/21 11/12/21 Unknown glucosamine sulf dipot 1 cap PO HS 11/12/21 11/12/21 Unknown chlr,msm,chond 550 mg-C 30 mg-rex 1 mg capsule (Glucosamine Chondroitin) magnesium citrate 100 mg tablet 400 mg PO QAM 11/12/21 11/12/21 Unknown Past Medical History Medical History Anemia stable per pt Bladder cancer 2013 - TURBT 2017, ongoing monthly chemo CAD (coronary artery disease) Stents x6 ([facility]/2005) Chronic back pain Depression with anxiety Hearing deficit wears hearing aids History of blood transfusion 2009 d/t bleeding in bladder per pt HLD (hyperlipidemia) Lumbar spondylosis Prostate cancer 2005 > prostatectomy Sleep apnea CPAP (compliant) Past Family History Family History Mother , Age 90 Congestive heart failure Anxiety disorder Depression Father , Age 79 Malignant melanoma of skin Heart disease Leukemia Myocardial infarction Brother Prostate cancer Spindle cell sarcoma Melanoma Other Cancer Denies family history of Ovarian cancer Breast cancer Colorectal cancer Past Surgical History Surgical History H/O cataract removal with insertion of prosthetic lens bilat H/O radical prostatectomy 2004 History of biopsy of bladder x2 History of bladder surgery x2; TURBT on 02/14/2018: LMA #4, atraumatic x 1. No issues per anesthesia progress note. History of cardiac cath 2005 with 6 stents @ [facility] History of colonoscopy with polypectomy 02/14/2019 anesthesia progress note: "The patient came to the PACU coughing with an 02 sat of 91. His breath sounds were coarse. He was given a duoneb treatment with almost complete resolution of his coughing, his 02 sat rudi to 100% and he felt much better. I presume that he aspirated saliva as there was no apparent aspiration during the procedure. The patient was presumed to have aspirated saliva and a CXR was odered which was read as no acute disease.He was coached to cough and deep breathe and he was discharged with a room air sat of 99%. He was discharged with an incentive spirometer and instructed to call Dr. Valencia or go to the ED if he develops a fever." No subsequent issues upon chart review, confirmed by pt at 2020 PAT appointment. History of cystoscopy multiple d/t bladder cancer History of detached retina repair right x2 History of esophagogastroduodenoscopy (EGD) History of open reduction and internal fixation (ORIF) procedure right ankle--hardware in place History of prostate biopsy malignant History of repair of inguinal hernia Open Left Indirect Inguinal Hernia repair 10/17/2018: LMA#4, atraumatic. No issues per anesthesia progress note. History of right inguinal hernia repair History of tonsillectomy and adenoidectomy History of tooth extraction History of vitrectomy x2 (right) History of wisdom tooth extraction S/P hip replacement Right MIGUEL (07/07/21): SAB at L3/4 x1 attempt at [facility]. No issues noted per post-op anesthesia progress note. S/P LASIK surgery of both eyes Social History Smoking Status: Former smoker tobacco type: cigarettes Do You Dip or Chew Tobacco: No Smoking End Date: 1981 Hx Alcohol Use: Yes Alcohol type: beer, wine and hard liquor alcohol intake frequency: a few times a week Hx Substance Use: No substance use type: does not use Lab Results Anesthesia Preop Results Results Anesthesia Widget: WBC 6.46 K/ul (4.8-10.8) 11/12/21 Hgb 13.5 g/dl (14.0-18.0) L 11/12/21 Hct 40.6 % (40.1-51.0) 11/12/21 Plt 201 K/uL (130-400) 11/12/21 Na 140 mmol/L (136-145) 11/12/21 K 4.5 mmol/L (3.5-5.1) 11/12/21 Cl 106 mmol/L (98-107) 11/12/21 CO2 28 mmol/L (21-32) 11/12/21 BUN 18 mg/dl (6-23) 11/12/21 Creat 1.05 mg/dl (0.6-1.4) 11/12/21 Glucose Level 95 mg/dl (70-99(Fasting)) 11/12/21 PT 10.9 Seconds (9.0-12.0) 11/12/21 PTT 28.5 Seconds (21.0-31.0) 11/12/21 INR 1.0 (0.9-1.1) 11/12/21 Urine Color Yellow 10/06/21 Urine Appearance Clear 11/02/21 Urine pH 7.5 (4.5-7.5) 10/06/21 Urine Specific [place] 1.014 (1.000-1.030) 10/06/21 Urine Protein Negative (Negative) 10/06/21 Urine Glucose (UA) Negative (Negative) 10/06/21 Urine Ketones Negative (Negative) 10/06/21 Urine Blood Negative (Negative) 10/06/21 Urine Nitrite Negative (Negative) 10/06/21 Urine Bilirubin Negative (Negative) 10/06/21 Urine Urobilinogen Negative (Negative) 10/06/21 Urine Leukocyte Esterase Negative (Negative) 10/06/21 Blood Type A Positive 11/12/21 Antibody Screen NEGATIVE 11/12/21 Testing Electrocardiogram Date: 02/12/21 Sinus bradycardia with frequent Premature atrial complexes, rate 59 bpm. Chest X-Ray Date: 02/12/21 No acute chest disease. Stress Test Date: 05/22/19 Dobutamine stress echocardiogram Negative for ischemia at 87% MPHR Left ventricle normal in size, wall thickness and systolic function No evidence of wall motion abnormalities present
--- NOTE | 2021-11-17 12:48 | History and Physical Report ---
DATE OF ADMISSION: 11/23/2021. CHIEF COMPLAINT: Left hip pain. HISTORY OF PRESENT ILLNESS: The patient is a 76-year-old gentleman now about 4 months out from right hip replacement, who presents for treatment of his left hip. He has got a several-year history of l eft hip pain and discomfort that he describes has gotten worse over time. He describes groin pain. He has difficulty putting his shoes and socks on. The more active he is, the more it hurts. He has recovered nicely from his right hip replacement with minimal, if any, pain. His left hip pain has be come more prominent. He would like to have his left hip fixed. PAST MEDICAL HISTORY: Significant for, 1. Coronary artery disease, status post stent placed in 2005 without symptoms. 2. Depression. 3. Elevated cholesterol. 4. Bladder cancer. 5. Prostate cancer. PAST SURGICAL HISTORY: Includes, 1. Cardiac stent placement x6 in 2005. 2. Radical prostatectomy. 3. Vitrectomy. 4. Hernia surgery bilaterally. 5. Right ankle surgery. 6. Right total hip replacement done on 07/07/2021. ALLERGIES: None. CURRENT MEDICATIONS: 1. Aspirin. 2. Atorvastatin. 3. Alprostadil. 4. Biotin. 5. Coenzyme Q. 6. Iron. 7. Multivitamin. 8. Sertraline. 9. Vitamin B complex. 10. Vitamin E. SOCIAL HISTORY: A 76-year-old male. Lives in [place]. Four children. One to two drinks per w [place]. FAMILY HISTORY: Significant for heart disease, stroke, melanoma and spindle cell carcinoma. REVIEW OF SYSTEMS: Significant for heart disease with multiple stents placed back in 2005. No resid ual symptoms. No chest pain or shortness of breath. No history of DVT or PE. PHYSICAL EXAMINATION: GENERAL: Shows a pleasant, healthy middle-aged male. Looks to be in good health. HEENT: Benign. NECK: Supple. No lymphadenopathy. LUNGS: Clear to auscultation. HEART: Regular rate and rhythm. ABDOMEN: Soft, nontender, nondistended. EXTREMITIES: Grossly neurovascularly intact except as follows: Examination of both hips revealed pa shantal ambulates quite well independently. Examination of the right hip reveals a well-healed incision. No significant swelling. He has got pa in with his hip motion. Negative straight leg raise. Examination of the left hip reveals equal leg lengths. He does have pain with any type of hip rotati on, particularly internal rotation. Internally rotates to neutral. No knee effusion. He is neurolo gically intact. X-RAYS: X-rays of the left hip reveal moderate to advanced hip arthritis. He has got near complete loss of his superior joint space. Some small osteophytes around the acetabulum. Right hip replaceme nt looks to be in good position. ASSESSMENT: A 76-year-old gentleman now 4+ months out from right hip replacement, with moderate left hip arthritis, unresponsive to conservative treatment. Very happy with his right hip and would like to have his left hip replaced. PLAN: We will take him to the operating room and do left total hip replacement. Risks and benefits of this procedure were explained to the patient and include but not limited to DVT, PE, , infect ion, neurological injury, vascular injury, bleeding problem, pain, limited range of motion, stiffness , leg length inequality, fracture, dislocation, need for further surgery. The patient understands an d desires to proceed. Informed consent was obtained. As far as discharge plans, he is planning to be discharged to home using [employer] amena may Job ID: [id number]
[~2021-12-02 09:33] MED LIST changes: +ACETAMINOPHEN 500 MG TAB PO SCH; +BUPIVACAINE 0.5 % 5 MG/1 ML PF 10ML VIAL ONE; +CeleBREX 200 MG CAP PO SCH; +FAMOTIDINE 20 MG TAB PO SCH; -GENERAL ORDER PROBLEM SCH; +LR 500ML BOLUS, THEN 15ML/HR IV SCH; +LR 60ML/HR IV SCH; +METOCLOPRAMIDE HCL 10 MG TABLET PO SCH; +Scopolamine 1 MG TDSY TD SCH; +Scopolamine CHECK PATCH PLACEMENT SCH; +TRANEXAMIC ACID 1,000 MG **IV Intra-op IV SCH; +TRANEXAMIC ACID 1,000 MG **IV Pre-op IV SCH; +ceFAZolin 2000MG 2,000 MG/15 ML SYR IV SCH
[2021-12-02 10:12] LABS: Basophils # (auto) 0.04 K/uL (0-0.2); Basophils % (auto) 0.5 %; Eosinophils # (auto) 0.18 K/uL (0-0.50); Eosinophils % (auto) 2.4 %; Hematocrit (blood only) 39.5 % (40.1-51.0); Hemoglobin 13.1 g/dl (14.0-18.0); Immature Granulocytes # (auto) 0.06 K/uL (0.00-0.02); Immature Granulocytes % (auto) 0.8 %; Lymphocytes # (auto) 2.26 K/uL (1.2-3.4); Lymphocytes % (auto) 30.1 %; Mean Corpuscular Hemoglobin 29.2 pg (25.0-34.0); Mean Corpuscular Hgb Conc 33.2 g/dL (32.0-36.0); Mean Corpuscular Volume 88.2 fL (80.0-100.0); Mean Platelet Volume 9.3 fL (9.4-12.4); Neutrophils # (auto) 4.06 K/uL (1.4-6.5); Neutrophils % (auto) 54.2 %; Platelet Count 186 K/uL (130-400); RDW Coefficient of Variation 13.2 % (11.5-14.5); RDW Standard Deviation 42.9 fL (36.4-46.3); Red Blood Count 4.48 M/uL (4.63-6.08)
--- NOTE | 2021-12-02 10:16 | History & Physical Bridge Note ---
Date of Service December 02, 2021 History & Physical Bridge Note I have examined the patient, reviewed the History & Physical and in the interval since the performance of the History & Physical I have noted the following changes of clinical significance: no changes noted
[2021-12-02] MEDS ORDERED: MIDAZOLAM HCL 1 MG/ML 2ML VIAL ONE (11:09)
[2021-12-02] MEDS ORDERED: fentaNYL citrate 100 MCG/2 ML VIAL IV PRN (11:57)
[2021-12-02] MEDS ORDERED: ONDANSETRON INJ 2 MG/ML 2 ML VIAL IV PRN ×2 (11:57→15:53)
[2021-12-02] MEDS ORDERED: ePHEDrine sulfate 50 MG/ML AMP IV PRN (11:57)
[2021-12-02] MEDS ORDERED: ATROPINE SULFATE 0.1 MG/ML 10ML SYR IV PRN (11:57)
[2021-12-02] MEDS ORDERED: EPINEPHrine INJ 1 MG/ML AMP ONE (12:08)
[2021-12-02] MEDS ORDERED: BUPIVACAINE 0.5 % 5 MG/1 ML MPF 30ML VIAL ONE (12:08)
[2021-12-02] MEDS ORDERED: PROPOFOL IV EMULSION 10 MG/ML 20 ML VIAL IV ONE (12:13)
[2021-12-02] MEDS ORDERED: GLYCOPYRROLATE 0.2 MG/ML VIAL ONE (12:54)
[2021-12-02] MEDS ORDERED: ePHEDrine sulfate 50 MG/ML SYR ONE (12:54)
--- NOTE | 2021-12-02 14:27 | Operative Report ---
PG Post Operative Report Pre & Post Diagnosis Operation Date: 11/23/21 07:00 <No data on this case meets the specified criteria> Operation Date: 12/02/21 12:10 Pre-Op Diagnosis: Left Hip Osteoarthritis Post-Op Diagnosis: Left Hip Osteoarthritis I identified the patient and participated in the time-out.: Yes Procedure Operation Date: 11/23/21 07:00 <No data on this case meets the specified criteria> Operation Date: 12/02/21 12:10 Actual Procedures p Left Total Hip Arthroplasty(Left) - Curry Mcfarland MD Surgeon Curry Mcfarland MD Plasterer Helper Yusuf Thomas PA-C Estimated Blood Loss 300 Findings Consistent with Post-Op Diagnosis Operative findings revealed advanced left hip DJD. He had grade 4 [id number] disease of the femoral head and acetabulum. Fairly large anterior acetabular osteophytes. Moderate-sized joint effusion. Fluids 1200 cc Specimens Left femoral head sent for pathology. Drains None Anesthesia Type Spinal MAC Complications none Disposition Accompanied Patient To Recovery: No Indications Patient is 76-year-old gentleman whose had a several year history of bilateral hip pain and discomfort. He underwent a right hip replacement earlier this year and is done well from that. Continue to be limited by left hip pain and discomfort. He failed conservative measures and elected proceed with total hip arthroplasty. Description of Procedure Operative implants consist of: 1 Biomet G7 size 52 mm acetabular shell. 2. [place] hole tailing machine operator 3. 6.5 cancellous acetabular screws 135 mm length 1 to 25 mm length. 4. Highly cross-linked polyethylene liner with a 52 mm outer diam and 36 mm inner diameter. 5. DePuy Karaya size 12 KLA femoral stem. 6. +1.5/36mm ceramic articular ball. The patient was taken to the operating, identified, placed on the operating table supine position protectors were properly padded. IV antibiotics were by the anesthesia team. A spinal anesthetic and been implemented holding area. A Medrano catheter was placed in sterile fashion. The patient was then placed in the right lateral decubitus position. An axillary roll was placed. A Stulberg hip positioner was used for positioning. Left hip and leg were then prepped and draped in usual sterile fashion. A posterolateral approach to the left hip was then performed through a curvilinear incision centered over the greater trochanter. Sharp dissection was carried through subcutaneous tissue down above the IT band gluteal fascia there was a bursal type tissue between the fat and the IT band. The IT band was incised longitudinally in line with skin incision. The underlying greater bursa was excised. The piriformis and external rotators along with the posterior hip joint capsule were then released from the posterior aspect of the hip as a single layer. Great care was taken throughout the procedure to protect the sciatic nerve at all times. Hip was internally rotated and dislocated. Femoral neck osteotomy cut was made with Final Cut 10 mm above the lesser trochanter. Femoral head was removed and sent for pathology. The femur was retracted anteriorly. Attention drawn the acetabulum. The acetabular labrum was excised. The pulmonary fat was excised. Sequential reaming the acetabular was then performed begin with size 45 and progressing up to 51. I then used a 52 reamer to ream a little bit additionally and a 52mm Biomet G7 acetabular shell was then placed in about 40 degrees lateral opening and 20 degrees of anteversion. Was fixed with two 6.5 cancellous acetabular screws. Trial liner was placed. Some anterior osteophytes were removed from the acetabulum. Attention drawn the femur. The proximal femur was entered with a LyricFind cutter followed by canal finder. I then broached begin the size 8 and then progressed up to a 12. Got excellent fit of the 12. We then trialed the hip. The +1.5 articular ball seem to create the most appropriate soft tissue tension full stability in extension and external rotation and flexion to 9 degrees internal Tatian over 50 degrees. The +5 articular ball just seemed a little bit tight particular in extension. Leg lengths appeared equal. I elect to place these implants. All trial implants were removed. An apex hole tailing machine operator was placed. Highly cross-linked polyethylene liner was placed. A size 12 KLA femoral stem was impacted in position. A +1.5/36 mm ceramic articular ball was placed. Hip was located once again found to be stable. Attention drawn toward closing. The wound was irrigated scope soft and pulsatile lavage solution. I did inject locally with 60 cc of half percent Marcaine with epinephrine. The posterior capsule and external rotators were then repaired through drill holes in the posterior trochanter with #2 Tycron suture as a single layer. The IT band gluteal fascia then closed in 1 PDS suture running fashion for subcutaneous tissues then closed 2 layers with a deep layer #1 Vicryl suture in the subcutaneous tissue with 2-0 Dexon suture in a buried interrupted fashion. Skin was closed skin deirdre. Leg was then cleaned and dried and sterile dressing was Xeroform, 4 x 4's, sterile ABD pad, foam tape was applied. Patient then transferred to the recovery room in stable condition. Patient tolerated procedure well and there were no complications. Yusuf Thomas, my physician orthotics prosthetics assistant, was present for the entire procedure. His assistance was essential and required for appropriate patient positioning, prepping and draping, surgical exposure, performing the technical details of the operation, placement the implants, closure of the wound, and placement of the sterile bandage. I attest to the content of the Intraoperative Record and any orders documented therein. Any exceptions are noted below.
--- NOTE | 2021-12-02 15:11 | Anesthesiology Progress Note ---
Date of Service December 02, 2021 Anesthesia Post Procedure Vital Signs Vital Signs: Temp Pulse Pulse Resp BP Pulse Ox O2 Del Method 12/02/21 15:05 59 L 17 104/52 L 97 Oxymask 12/02/21 14:55 61 19 104/55 L 98 Oxymask 12/02/21 14:45 61 22 102/53 L 99 Oxymask 12/02/21 14:35 61 11 L 98/44 L 98 Oxymask 12/02/21 14:25 63 17 110/56 L 99 Oxymask 12/02/21 14:17 36.7 C 67 23 103/51 L 98 Oxymask 12/02/21 10:10 36.7 C 53 L 18 134/62 Room Air O2 Flow Rate 12/02/21 15:05 2 12/02/21 14:55 2 12/02/21 14:45 5 12/02/21 14:35 5 12/02/21 14:25 5 12/02/21 14:17 5 12/02/21 10:10 Transfer of Care Handoff Completed per policy Notes Mental Status: alert / awake / arousable Patient Amnestic to Procedure: Yes Nausea / Vomiting: adequately controlled Pain: adequately controlled Airway Patency, RR, SpO2: stable & adequate BP & HR: stable & adequate Hydration State: stable & adequate Neuraxial Anesthesia: was administered and sensory block is resolving Anesthetic Complications: no major complications apparent and Pt Satisfied with anesthetic care
--- NOTE | 2021-12-02 15:46 | XRay Report ---
AP PELVIS, CROSSTABLE LATERAL LEFT HIP History: Left total hip arthroplasty. Degenerative arthritis. Postop. FINDINGS: The patient is status post a left total hip arthroplasty. The hardware is intact. No fractu re or dislocation. Skin deirdre are in place. Evidence for a prior right total hip arthroplasty. IMPRESSION: Left total hip arthroplasty. No evidence for hardware complication. ACT 112: Negative or not required by law. Electronically signed by: Ever Johnson M.D. 12/02/2021 3:45 PM
[2021-12-02] MEDS ORDERED: bisacodyL 10 MG SUPP PR PRN (15:53)
[2021-12-02] MEDS ORDERED: NALOXONE HCL 0.4 MG/1 ML VIAL/CARP IV PRN (15:53)
[2021-12-02] MEDS ORDERED: MAGNESIUM HYDROXIDE SUSP 30 ML UDC PO PRN (15:53)
[2021-12-02] MEDS ORDERED: ALUMINUM/MAGNESIUM SUSP 30 ML UDC PO PRN (15:53)
[2021-12-02] MEDS ORDERED: METOCLOPRAMIDE HCL INJ 5 MG/ML 2 ML VIAL IV PRN (15:53)
[2021-12-02] MEDS ORDERED: traMADol HCL 50 MG TABLET PO PRN (15:53)
[2021-12-02] MEDS ORDERED: HYDROmorphone INJ 0.5 MG/0.5 ML SYR IV PRN (15:53)
[2021-12-02] MEDS ORDERED: KETOROLAC 30 MG/ML VIAL ONE (17:01)
[2021-12-02] MEDS: KETOROLAC TROMETHAMINE 15 MG/ML VIAL IV SCH ×2 (17:02→20:50)
[2021-12-02] MEDS: Scopolamine CHECK PATCH PLACEMENT SCH ×2 (19:03→23:09)
[2021-12-02] MEDS: ASCORBIC ACID 500 MG TAB PO SCH (19:03)
[2021-12-02] MEDS ORDERED: TRANEXAMIC ACID / 0.7% NACL 1,000 MG/100 ML BAG IV SCH (20:15)
[2021-12-02] MEDS: DOCUSATE SODIUM 100 MG CAP PO SCH (20:47)
[2021-12-02] MEDS: DOCUSATE SODIUM/SENNA 50/8.6MG TAB PO SCH (20:47)
[2021-12-02] MEDS: ASPIRIN 81 MG ECTAB PO SCH (20:48)
[2021-12-02] MEDS: ACETAMINOPHEN 500 MG TAB PO SCH (20:50)
[2021-12-02] MEDS ORDERED: [UNRECOGNIZED DRUG - OTHER] PO SCH (21:00)
[2021-12-02] MEDS ORDERED: TOCOPHERYL, DL-ALPHA 100 UNITS CAP PO SCH (21:00)
[2021-12-02] MEDS ORDERED: ATORVASTATIN 40 MG TAB PO SCH (21:00)
[2021-12-02] MEDS ORDERED: NON-FORMULARY MEDICATION (Amino Acids [Amino Acid] Capsule) PO SCH (21:00)
[2021-12-02] MEDS ORDERED: IRON PO SCH (21:00)
[2021-12-02] MEDS ORDERED: NON-FORMULARY MEDICATION (Glucos Sul 2kcl-Msm-Chond-C-Mn [Glucosamine Chondroitin] 550-30- PO SCH (21:00)
[2021-12-02] MEDS ORDERED: TOCOPHERYL, DL-ALPHA 400 UNITS 180 MG CAP PO SCH (21:00)
[2021-12-02] MEDS ORDERED: BIOTIN 2500 MCG PO SCH (21:00)
[2021-12-02] MEDS ORDERED: SERTRALINE HCL 100 MG TABLET PO SCH (21:00)
[2021-12-02] MEDS ORDERED: VITAMIN B COMPLEX TAB PO SCH (21:00)
[2021-12-02] MEDS ORDERED: NON-FORMULARY MEDICATION (Iron,Carbonyl-Vitamin C [Vitron-C] 65 mg iron- 125 mg Tablet,Del PO SCH (21:00)
[2021-12-02] MEDS ORDERED: SENNA 8.6 MG TAB PO SCH (21:00)
[2021-12-02] MEDS ORDERED: NON-FORMULARY MEDICATION (Coenzyme Q10 [Coq-10] 100 mg Capsule) PO SCH (21:00)
[2021-12-02] MEDS: ceFAZolin 1000MG 1,000 MG/7.5 ML SYR IV SCH (21:15)
[2021-12-02] MEDS: SODIUM CHLORIDE 0.9% 1000ML 1,000 ML IV SCH (23:46)
[2021-12-03] MEDS: ceFAZolin 1000MG 1,000 MG/7.5 ML SYR IV SCH (05:42)
[2021-12-03] MEDS: ACETAMINOPHEN 500 MG TAB PO SCH (05:42)
[2021-12-03] MEDS: KETOROLAC TROMETHAMINE 15 MG/ML VIAL IV SCH ×2 (05:42→09:16)
[2021-12-03] MEDS: SODIUM CHLORIDE 0.9% 1000ML 1,000 ML IV SCH (06:10)
--- NOTE | 2021-12-03 07:28 | Progress Notes ---
DATE OF SERVICE: 12/03/2021. SUBJECTIVE: A 76-year-old gentleman postoperative day 1 from left hip replacement. He is doing well . A little soreness and difficulty getting in and out of bed, but otherwise doing well. No chest pa in or shortness of breath. Not feeling dizzy or lightheaded. OBJECTIVE: VITAL SIGNS: Temperature 37.3. Vital signs are stable. GENERAL: Shows a pleasant, elderly male. He is lying in bed. He is awake, alert and oriented. LUNGS: Clear to auscultation. HEART: Regular rate and rhythm. ABDOMEN: Soft, nontender, nondistended. EXTREMITIES: Grossly neurovascularly intact except as follows: Examination of the left lower extrem ity reveals the leg to be well aligned. Dressing is clean, dry and intact. He can dorsiflex and isabela ntarflex his foot appropriately. He is neurologically intact. LABORATORY DATA: Labs are pending. ASSESSMENT: A 76-year-old gentleman postoperative day 1 from left hip replacement, doing well. Pain is controlled. Hip is located. He is neurologically intact. PLAN: 1. DVT prophylaxis includes thigh-high TEDs, SCDs, and aspirin twice a day. 2. PT, OT, weightbear as tolerated. Left total hip protocol. 3. Pain control, doing okay with current pain regimen. 4. Disposition: Plan to discharge to home with some home health later today if does okay in therapy . Job ID: [id number]
[2021-12-03 07:52] LABS: Basophils # (auto) 0.04 K/uL (0-0.2); Basophils % (auto) 0.4 %; Eosinophils # (auto) 0.07 K/uL (0-0.50); Eosinophils % (auto) 0.7 %; Hematocrit (blood only) 27.8 % (40.1-51.0); Hemoglobin 9.4 g/dl (14.0-18.0); Immature Granulocytes # (auto) 0.03 K/uL (0.00-0.02); Immature Granulocytes % (auto) 0.3 %; Lymphocytes # (auto) 1.31 K/uL (1.2-3.4); Lymphocytes % (auto) 13.3 %; Mean Corpuscular Hemoglobin 28.7 pg (25.0-34.0); Mean Corpuscular Hgb Conc 33.8 g/dL (32.0-36.0); Mean Platelet Volume 9.6 fL (9.4-12.4); Monocytes # (auto) 1.11 K/uL (0.24-0.82); Monocytes % (auto) 11.3 %; Neutrophils # (auto) 7.27 K/uL (1.4-6.5); Platelet Count 139 K/uL (130-400); RDW Coefficient of Variation 13.4 % (11.5-14.5); RDW Standard Deviation 41.4 fL (36.4-46.3); Red Blood Count 3.27 M/uL (4.63-6.08); White Blood Count 9.83 K/ul (4.8-10.8)
[2021-12-03] MEDS ORDERED: dexAMETHasone 10 MG in SYRINGE 0 ML IV SCH (08:00)
[2021-12-03 08:07] LABS: BUN Creatinine Ratio 12.8 (10-20); Calcium 7.7 mg/dl (8.5-10.1); Creatinine Clr Calc Pharmacy 54.9 ml/min; Est GFR (African American) 75.5 ml/min; Est GFR (Non-African American) 65.1 ml/min; Potassium 4.1 mmol/L (3.5-5.1)
[2021-12-03] MEDS ORDERED: NON-FORMULARY MEDICATION (Magnesium Citrate 100 mg Tablet) PO SCH (09:00)
[2021-12-03] MEDS ORDERED: MULTIVITAMIN TAB PO SCH (09:00)
[2021-12-03] MEDS ORDERED: TAMSULOSIN HCL 0.4 MG CAP PO SCH (09:00)
[2021-12-03] MEDS: Scopolamine CHECK PATCH PLACEMENT SCH (09:15)
[2021-12-03] MEDS: ASPIRIN 81 MG ECTAB PO SCH (09:15)
[2021-12-03] MEDS: DOCUSATE SODIUM/SENNA 50/8.6MG TAB PO SCH (09:16)
[2021-12-03] MEDS: DOCUSATE SODIUM 100 MG CAP PO SCH (09:16)
[2021-12-03] MEDS: ASCORBIC ACID 500 MG TAB PO SCH (09:17)
--- NOTE | 2021-12-05 15:00 | Discharge Summary ---
Date of Service December 05, 2021 Discharge Data Procedures Performed Operation Date: 11/23/21 07:00 <No data on this case meets the specified criteria> Operation Date: 12/02/21 12:10 Actual Procedures p Left Total Hip Arthroplasty(Left) - Curry Mcfarland MD Hospital Course (1) S/P total left hip arthroplasty: This is a 76 year old patient admitted on 12/02/21 and underwent total hip arthroplasty. He tolerated the procedure well and there were no complications. Transferred to the PACU post op and later to the orthopedic floor for further care. He was given ancef for antibiotic prophylaxis. He was also given GILBERTO stockings, SCDs, and aspirin for DVT prophylaxis. Hemoglobin, hematocrit, and vital signs were monitored during his hospital stay and remained stable. Did not require any blood transfusions. There were no complications during his hospital stay. By post op day #1 the patient was tolerating a regular diet, pain was reasonably controlled with oral pain medicine, and he was participating in physical therapy. On post op day #1 the patient was discharged home and set up with home health care. He was given printed discharge instructions including prescriptions for extra strength tylenol, aspirin, toradol, zofran, senokot, flomax, and tramadol. Continue physical therapy, weight bearing as tolerated. Continue hip precautions. Continue GILBERTO stockings. Follow up approximately 2 weeks post op or sooner if there are problems or concerns. Coding Level of Care Code None Diagnoses S/P total left hip arthroplasty Z96.642
== END 2021-12-03 13:54 | disposition home health service (06) ==
LOC: PACUINP 09:33 → ASU 09:33 → 3E 19:00

== ENCOUNTER 2024-03-12 14:33 | Inpatient (IN) ==
[2024-03-12 16:06] LABS: Basophils # (auto) 0.03 K/uL (0.00-0.20); Basophils % (auto) 0.3 %; Eosinophils # (auto) 0.06 K/uL (0.00-0.50); Eosinophils % (auto) 0.6 %; Hematocrit (blood only) 34.2 % (42.0-52.0); Hemoglobin 11.5 g/dl (14.0-18.0); Immature Granulocytes # (auto) 0.04 K/uL (0.01-0.20); Immature Granulocytes % (auto) 0.4 %; Lymphocytes % (auto) 9.2 %; Mean Corpuscular Hgb Conc 33.6 g/dL (32.0-36.0); Mean Corpuscular Volume 86.4 fL (80.0-100.0); Mean Platelet Volume 9.2 fL (9.4-12.4); Monocytes # (auto) 1.13 K/uL (0.11-0.59); Monocytes % (auto) 11.5 %; Neutrophils # (auto) 7.66 K/uL (1.40-6.50); Platelet Count 141 K/uL (130-400); RDW Coefficient of Variation 13.5 % (11.5-14.5); RDW Standard Deviation 42.8 fL (36.4-46.3); Red Blood Count 3.96 M/uL (4.70-6.10); White Blood Count 9.82 K/ul (4.8-10.8)
[2024-03-12] MEDS: SODIUM CHLORIDE 0.9% 1,000 ML IV ONE (16:11)
[2024-03-12] MEDS: ACETAMINOPHEN 1,000 MG/100 ML VIAL IV STA (16:18)
[2024-03-12 16:24] LABS: Albumin Globulin Ratio 1.2 (0.9-2); Albumin Level 3.8 gm/dl (3.4-5.0); Bilirubin,Total 0.9 mg/dl (0.2-1.0); Calcium 8.6 mg/dl (8.6-10.3); Creatinine Clr Calc Pharmacy 39.1 ml/min; Globulin 3.3 gm/dl (2.5-4.0); Potassium 3.7 mmol/L (3.5-5.1); Total Protein 7.1 gm/dl (6.0-8.3)
[2024-03-12] MEDS: PIPERACILLIN/TAZOBACTAM 4.5 GM/100 ML BAG IV ONE (16:46)
[2024-03-12 17:22] LABS: Appearance Urine Cloudy (Clear); Bacteria Urine Automated 4+ (None Seen); Bilirubin Urine Negative (Negative); Blood Urine 1+ (Negative); Color Urine Yellow; Epithelial Cell Urine Auto 0-2 /hpf (0-2); Glucose Urine UA Negative (Negative); Ketones Urine Negative (Negative); Leukocyte Esterase Urine 3+ (Negative); Nitrite Urine Negative (Negative); Protein Urine 1+ (Negative); RBC Urine Automated 0-2 /hpf (0-2); Specific Gravity Urine 1.009 (1.000-1.030); Urobilinogen Urine Negative (Negative); WBC Urine Automated >50 /hpf (0-5); pH Urine 6.5 (4.5-7.5)
--- NOTE | 2024-03-12 17:40 | Emergency Department Note ---
Impression & Plan Ureteral obstruction, right, Presence of urostomy, Displacement of indwelling ureteral stent, sequela ED Provider Note CHIEF COMPLAINT: Right flank pain, fever HISTORY OF PRESENT ILLNESS: This 78-year-old male patient with past medical history of bladder cancer, prostate cancer, urostomy, coronary artery disease status post stenting, hyperlipidemia, elevated fasting glucose presents to the emergency department with complaints of right flank pain several days ago status post ureteral stent and now with fever. He states he "jostled" the stent around and let it drip into a towel overnight instead of the urostomy bag. He states the pain subsided at that point however 2 to 3 days later he has developed a temperature 101.5 degrees. He is followed at [facility] by urology who referred the patient into the emergency department today. Patient continues to deny pain at this time. He denies any respiratory symptoms, cough, cold, fever. REVIEW OF SYSTEMS: A review of systems was performed with positives and pertinent negatives listed in the history of present illness. 10 systems were reviewed and are otherwise negative. ALLERGIES: see below MEDICATIONS: see below PMH: see below SOCIAL HISTORY: see below DDx: Kidney stone, pyelonephritis, pain related to ureteral stent, stent obstruction, hydronephrosis, abscess among others. PHYSICAL EXAM: Vital signs reviewed. General: Well-appearing 78-year-old male, in no significant distress. HEENT: No scleral icterus, PERRLA, neck supple. Moist mucous membranes Cardiovascular: Regular rate and rhythm, no extra sounds. Pulmonary: Clear to auscultation bilaterally, normal work of breathing. Abdomen: Soft, nontender, nondistended, positive bowel sounds. Urostomy. Musculoskeletal: Atraumatic, no peripheral edema. No CVA tenderness Neurologic: Patient awake alert and oriented x 3, speech is clear Skin: Warm, dry, no rash EMERGENCY DEPARTMENT COURSE/MDM: This patient was evaluated and appeared to be in no significant distress. IV access was obtained and laboratory work was drawn. Patient was placed on the cardiac technician and noted to be in a normal sinus rhythm. He reported a fever although was afebrile here. He was given 1 g of IV Tylenol for any discomfort. He was hydrated with normal saline solution. UA is indicative of infection. CT imaging of the abdomen pelvis reveals evidence of a right hydronephrosis with a stent in the distal ureter. Blood cultures were obtained, lactate is normal, procalcitonin is slightly elevated. Viral respiratory panel is positive for rhinovirus. Patient was medicated with IV Zosyn given 1 L IV normal saline solution. The case was discussed with Dr. Post of urology who has recommended admission for IV antibiotics. An operative report from [facility] has been requested. Patient will be evaluated for a stent exchange tomorrow unless his symptoms worsen overnight. Case has been referred to the internal medicine service under Dr. Mcfarland for admission and further management. MONITORING: An order for cardiac monitoring was placed and the patient is noted to be in a normal sinus rhythm at 60 beats per minute. RADIOLOGY: CT imaging of the abdomen pelvis to my interpretation reveals a stent in the distal ureter and right hydronephrosis. DISPOSITION: Admission Past Med/Surg History Problem List (Updated 03/12/24 @ 19:43 by Analisa De La O MD) Displacement of indwelling ureteral stent, sequela (Acute) Presence of urostomy (Acute) Ureteral obstruction, right (Acute) Presence of urostomy Dizziness Peripheral neuropathy Demyelinating neuropathy Pelvic abscess in male Cervical lymphadenopathy Fatigue Impaired range of motion of cervical spine Carpal tunnel syndrome 11-11-22 Left Carpal Tunnel Release(Left) - Adarsh Slaughter, Arthritis Hydronephrosis, left Stented coronary artery Hip bursitis, left Carcinoma of prostate Primary bladder malignant neoplasm Nasal congestion Vitamin D deficiency Hearing loss Blepharitis of both eyes Murmur, cardiac IT band syndrome Male erectile disorder of organic origin (Acute) Primary osteoarthritis of left knee (Acute) Elevated fasting blood sugar (Chronic) Hyperlipidemia Medical History History of COVID-19 diagnosed 03/15/23 via home test--fatigue, nasal congestion, loss of appetite--resolved, no symptoms now Neuropathy Anxiety History of blood transfusion 2008 d/t bleeding in bladder per pt CAD (coronary artery disease) Stents x6 ([facility]/2005) HLD (hyperlipidemia) Lumbar spondylosis Sleep apnea CPAP (compliant) Depression with anxiety Bladder cancer 2013 - TURBT 2017. 05/2022 total cystectomy w/ ileal conduit formation. ongoing immunotherapy. Chronic back pain Prostate cancer 2005 > prostatectomy Anemia chronic Hearing deficit wears hearing aids Surgical History History of carpal tunnel surgery of right wrist 04-21-23 R wrist History of carpal tunnel surgery of left wrist S/P ileal conduit H/O total cystectomy w/ ileal conduit formation Status post right hip replacement History of left hip replacement 12-02-21 S/P L MIGUEL with Dr Mcfarland S/P hip replacement Right MIGUEL (07/07/21): SAB at L3/4 x1 attempt at [facility]. No issues noted per post-op anesthesia progress note. History of tooth extraction S/P LASIK surgery of both eyes H/O cataract removal with insertion of prosthetic lens bilat History of colonoscopy with polypectomy 02/14/2019 anesthesia progress note: "The patient came to the PACU coughing with an 02 sat of 91. His breath sounds were coarse. He was given a duoneb treatment with almost complete resolution of his coughing, his 02 sat rudi to 100% and he felt much better. I presume that he aspirated saliva as there was no apparent aspiration during the procedure. The patient was presumed to have aspirated saliva and a CXR was odered which was read as no acute disease.He was coached to cough and deep breathe and he was discharged with a room air sat of 99%. He was discharged with an incentive spirometer and instructed to call Dr. Valencia or go to the ED if he develops a fever." No subsequent issues upon chart review, confirmed by pt at 2020 PAT appointment. History of wisdom tooth extraction History of repair of inguinal hernia Open Left Indirect Inguinal Hernia repair 10/17/2018: LMA#4, atraumatic. No issues per anesthesia progress note. History of open reduction and internal fixation (ORIF) procedure right ankle--hardware in place History of prostate biopsy malignant History of biopsy of bladder x2 History of esophagogastroduodenoscopy (EGD) History of right inguinal hernia repair History of cystoscopy multiple d/t bladder cancer History of bladder surgery x2; TURBT on 02/14/2018: LMA #4, atraumatic x 1. No issues per anesthesia progress note. H/O radical prostatectomy 2004 History of tonsillectomy and adenoidectomy History of detached retina repair right x2 History of vitrectomy x2 (right) History of cardiac cath 2005, was having upper repiratory problems/neck pain-turned out to be angina, [place] [facility] [place] History Mother , Age 90 Congestive heart failure Anxiety disorder Depression Father , Age 79 Malignant melanoma of skin Heart disease Leukemia Myocardial infarction Brother Prostate cancer Spindle cell sarcoma Melanoma Other Cancer Denies family history of Ovarian cancer Breast cancer Colorectal cancer Social History Smoking Status: Never smoker Tobacco Type: Cigarettes Second Hand Exposure: Yes (hx.); Do You Dip or Chew Tobacco: No; Hx Alcohol Use: Yes Alcohol type: beer, wine and hard liquor Alcohol Intake Frequency: 2-3 x/Week Alcohol Intake Frequency Comment: 1-2 x/week Hx Substance Use: No Preferred Language: Uzbek Communication Ability: Effective Visual Impairment: Limited Hearing Ability: Use of Hearing Aid Claims Adjudicator Required: No Beliefs That Will Affect Care: None marital status: Current Living Situation: Spouse current occupational status: retired How many Children do You have: 4 Feels Safe at Home: Yes Childhood Exposure to Second-Hand Smoke: Yes Diet: regular caffeine: Yes during the past year weight has: remained stable Dental Care, Regularly: Yes Physical Activity Frequency: Daily Seatbelt Use: always Sunscreen Use: Yes Do you think of yourself as: straight/heterosexual Sexual Activity: has been sexually active, but not for at least 12 months Gender Identity: Male Assistive Devices: CPAP, Glasses and Hearing Aid - Bilateral Allergies Allergies Allergy/AdvReac Type Severity Reaction Status Date / Time No Known Drug Allergies Allergy Mild Verified 11/29/23 13:52 Home Meds Home Medications Medication Instructions Recorded Confirmed coenzyme Q10 100 mg capsule 100 mg PO HS 01/30/18 11/29/23 (CoQ-10) vitamin E 670 mg (1,000 unit) 1,000 unit PO HS 01/30/18 11/29/23 capsule biotin 2,500 mcg capsule 2,500 mcg PO HS 06/21/18 11/29/23 iron,carbonyl 65 mg-vitamin C 125 1 tab PO HS 07/04/18 11/29/23 mg tablet,delayed release (Vitron-C) vitamin B complex (B 1 tab PO HS 11/09/18 11/29/23 Complex-Vitamin B12 tablet) glucosamine sulf dipot 1 cap PO HS 11/12/21 11/29/23 chlr,msm,chond 550 mg-C 30 mg-rex 1 mg capsule (Glucosamine Chondroitin) aspirin 81 mg tablet,delayed 81 mg PO QPM 01/05/22 11/29/23 release (Kallie Low Dose Aspirin) magnesium oxide 400 mg PO DAILY 11/29/23 11/29/23 mv-mn-folic 200 mcg-vit K 15 1 cap PO DAILY 11/29/23 11/29/23 mcg-lutein 5 mg-zeaxanthin 1 mg capsule (PreserVision AREDS 2 Plus Multivit) Previous Rx's Medication Instructions Recorded atorvastatin 80 mg tablet 80 mg PO HS #90 tabs 05/30/23 sertraline 100 mg tablet (Zoloft) 100 mg PO HS #90 tabs 11/02/23 Results & Data (ED) Vital Signs Vital Signs - 24 hr 03/12/24 14:40 03/12/24 16:01 03/12/24 16:09 Temperature 37.2 C 36.9 C Temperature Source Temporal Artery Scan Oral Pulse Rate 62 63 Pulse Rate [Apical] 60 Pulse Rhythm Regular Respiratory Rate 20 15 Respiratory Effort / Characteristics Non-Labored Spontaneous Non-Labored Spontaneous Respiratory Depth Normal Normal Respiratory Pattern Regular Blood Pressure 108/53 L Blood Pressure [Left Arm] 107/48 L Blood Pressure Mean 71 Blood Pressure Mean [Left Arm] 67 Blood Pressure Position [Left Arm] Pulse Oximetry 95 94 Oxygen Delivery Method Room Air Room Air Sepsis Recent Fever Within 48 Hours No Sepsis New/Unexplained Change in Mental Status No Sepsis Action Taken by Nursing No Action Required 03/12/24 18:11 Temperature Temperature Source Pulse Rate Pulse Rate [Apical] 53 L Pulse Rhythm Respiratory Rate 20 Respiratory Effort / Characteristics Non-Labored Spontaneous Respiratory Depth Normal Respiratory Pattern Regular Blood Pressure Blood Pressure [Left Arm] 103/57 L Blood Pressure Mean Blood Pressure Mean [Left Arm] 72 Blood Pressure Position [Left Arm] Semi-fowlers Pulse Oximetry 95 Oxygen Delivery Method Room Air Sepsis Recent Fever Within 48 Hours Sepsis New/Unexplained Change in Mental Status Sepsis Action Taken by Jail Medications Current Medication List: was personally reviewed by me Laboratory Data Attestation: I reviewed the patient's lab results. 03/12/24 15:55 03/12/24 15:55 Lab Results 03/12/24 03/12/24 03/12/24 Range/Units 15:55 16:13 16:22 WBC 9.82 (4.8-10.8) K/ul RBC 3.96 L (4.70-6.10) M/uL Hgb 11.5 L (14.0-18.0) g/dl Hct 34.2 L (42.0-52.0) % MCV 86.4 (80.0-100.0) fL MCH 29.0 (25.0-34.0) pg MCHC 33.6 (32.0-36.0) g/dL RDW Std Deviation 42.8 (36.4-46.3) fL RDW Coeff of Rula 13.5 (11.5-14.5) % Plt Count 141 (130-400) K/uL MPV 9.2 L (9.4-12.4) fL Immature Gran % (Auto) 0.4 % Neut % (Auto) 78.0 % Lymph % (Auto) 9.2 % Garrett % (Auto) 11.5 % Eos % (Auto) 0.6 % Baso % (Auto) 0.3 % Neut # (Auto) 7.66 H (1.40-6.50) K/uL Lymph # (Auto) 0.90 L (1.20-3.40) K/uL Garrett # (Auto) 1.13 H (0.11-0.59) K/uL Eos # (Auto) 0.06 (0.00-0.50) K/uL Baso # (Auto) 0.03 (0.00-0.20) K/uL Immature Gran # (Auto) 0.04 (0.01-0.20) K/uL Sodium 132 L (136-145) mmol/L Potassium 3.7 (3.5-5.1) mmol/L Chloride 99 (98-107) mmol/L Carbon Dioxide 26 (21-32) mmol/L Anion Gap 7 (3-11) BUN 23 (6-23) mg/dl Creatinine 1.53 H (0.6-1.4) mg/dl Est Cr Clr Drug Dosing 39.1 ml/min eGFR 45.96 BUN/Creatinine Ratio 15.0 (10-20) Glucose 90 (70-99(Fasting)) mg/dl Lactate (0.4-2.0) mmol/L Calcium 8.6 (8.6-10.3) mg/dl Total Bilirubin 0.9 (0.2-1.0) mg/dl AST 17 (13-39) U/L ALT 15 (7-52) U/L Alkaline Phosphatase 64 (34-104) U/L Total Protein 7.1 (6.0-8.3) gm/dl Albumin 3.8 (3.4-5.0) gm/dl Globulin 3.3 (2.5-4.0) gm/dl Albumin/Globulin Ratio 1.2 (0.9-2) Procalcitonin 0.95 H (0-0.5) ng/ml Urine Color Yellow Urine Appearance Cloudy A (Clear) Urine pH 6.5 (4.5-7.5) Ur Specific [place] 1.009 (1.000-1.030) Urine Protein 1+ H (Negative) Urine Glucose (UA) Negative (Negative) Urine Ketones Negative (Negative) Urine Blood 1+ H (Negative) Urine Nitrite Negative (Negative) Urine Bilirubin Negative (Negative) Urine Urobilinogen Negative (Negative) Ur Leukocyte Esterase 3+ H (Negative) Urine WBC (Auto) >50 H (0-5) /hpf Urine RBC (Auto) 0-2 (0-2) /hpf U Hyaline Cast (Auto) 11-20 H (0-2) /lpf U Epithel Cells (Auto) 0-2 (0-2) /hpf Urine Bacteria (Auto) 4+ H (None Seen) Adenovirus (PCR) Not Detected (NotDetected) B. pertussis DNA (PCR) Not Detected (NotDetected) B.parapertussis DNA PCR Not Detected (NotDetected) C. pneumoniae DNA (PCR) Not Detected (NotDetected) Coronavirus OC43 (PCR) Not Detected (NotDetected) Coronavirus HKU1 (PCR) Not Detected (NotDetected) Coronavirus 229E (PCR) Not Detected (NotDetected) SARS-CoV-2 (PCR) Not Detected (NotDetected) Coronavirus NL63 (PCR) Not Detected (NotDetected) Human Metapneumovir PCR Not Detected (NotDetected) Influenza Type A (PCR) Not Detected (NotDetected) Influenza Type B (PCR) Not Detected (NotDetected) M. pneumoniae (PCR) Not Detected (NotDetected) Parainfluenza 1 (PCR) Not Detected (NotDetected) Parainfluenza 2 (PCR) Not Detected (NotDetected) Parainfluenza 3 (PCR) Not Detected (NotDetected) Parainfluenza 4 (PCR) Not Detected (NotDetected) RSV (PCR) Not Detected (NotDetected) Entero/Rhino (PCR) DETECTED A (NotDetected) 03/12/24 Range/Units 17:51 WBC (4.8-10.8) K/ul RBC (4.70-6.10) M/uL Hgb (14.0-18.0) g/dl Hct (42.0-52.0) % MCV (80.0-100.0) fL MCH (25.0-34.0) pg MCHC (32.0-36.0) g/dL RDW Std Deviation (36.4-46.3) fL RDW Coeff of Rula (11.5-14.5) % Plt Count (130-400) K/uL MPV (9.4-12.4) fL Immature Gran % (Auto) % Neut % (Auto) % Lymph % (Auto) % Garrett % (Auto) % Eos % (Auto) % Baso % (Auto) % Neut # (Auto) (1.40-6.50) K/uL Lymph # (Auto) (1.20-3.40) K/uL Garrett # (Auto) (0.11-0.59) K/uL Eos # (Auto) (0.00-0.50) K/uL Baso # (Auto) (0.00-0.20) K/uL Immature Gran # (Auto) (0.01-0.20) K/uL Sodium (136-145) mmol/L Potassium (3.5-5.1) mmol/L Chloride (98-107) mmol/L Carbon Dioxide (21-32) mmol/L Anion Gap (3-11) BUN (6-23) mg/dl Creatinine (0.6-1.4) mg/dl Est Cr Clr Drug Dosing ml/min eGFR BUN/Creatinine Ratio (10-20) Glucose (70-99(Fasting)) mg/dl Lactate 0.9 (0.4-2.0) mmol/L Calcium (8.6-10.3) mg/dl Total Bilirubin (0.2-1.0) mg/dl AST (13-39) U/L ALT (7-52) U/L Alkaline Phosphatase (34-104) U/L Total Protein (6.0-8.3) gm/dl Albumin (3.4-5.0) gm/dl Globulin (2.5-4.0) gm/dl Albumin/Globulin Ratio (0.9-2) Procalcitonin (0-0.5) ng/ml Urine Color Urine Appearance (Clear) Urine pH (4.5-7.5) Ur Specific [place] (1.000-1.030) Urine Protein (Negative) Urine Glucose (UA) (Negative) Urine Ketones (Negative) Urine Blood (Negative) Urine Nitrite (Negative) Urine Bilirubin (Negative) Urine Urobilinogen (Negative) Ur Leukocyte Esterase (Negative) Urine WBC (Auto) (0-5) /hpf Urine RBC (Auto) (0-2) /hpf U Hyaline Cast (Auto) (0-2) /lpf U Epithel Cells (Auto) (0-2) /hpf Urine Bacteria (Auto) (None Seen) Adenovirus (PCR) (NotDetected) B. pertussis DNA (PCR) (NotDetected) B.parapertussis DNA PCR (NotDetected) C. pneumoniae DNA (PCR) (NotDetected) Coronavirus OC43 (PCR) (NotDetected) Coronavirus HKU1 (PCR) (NotDetected) Coronavirus 229E (PCR) (NotDetected) SARS-CoV-2 (PCR) (NotDetected) Coronavirus NL63 (PCR) (NotDetected) Human Metapneumovir PCR (NotDetected) Influenza Type A (PCR) (NotDetected) Influenza Type B (PCR) (NotDetected) M. pneumoniae (PCR) (NotDetected) Parainfluenza 1 (PCR) (NotDetected) Parainfluenza 2 (PCR) (NotDetected) Parainfluenza 3 (PCR) (NotDetected) Parainfluenza 4 (PCR) (NotDetected) RSV (PCR) (NotDetected) Entero/Rhino (PCR) (NotDetected) Administered Medications Discontinued Medications Acetaminophen (Ofirmev) 1,000 mg in 100 mls @ 400 mls/hr IV NOW STA Stop: 03/12/24 16:09 Last Infusion: 03/12/24 16:41 Dose: Infused Documented By: Admin: 03/12/24 16:18 Dose: 400 mls/hr Documented By: TAMI Sodium Chloride (Nss) 1,000 mls @ 999 mls/hr IV .Q1H1M ONE Stop: 03/12/24 16:55 Last Infusion: 03/12/24 17:17 Dose: Infused Documented By: Admin: 03/12/24 16:11 Dose: 999 mls/hr Documented By: TAMI Piperacillin Sod/Tazobactam Sod (Zosyn) 4.5 gm in 100 mls @ 200 mls/hr IV NOW ONE; Protocol Stop: 03/12/24 16:53 Last Infusion: 03/12/24 17:16 Dose: Infused Documented By: Admin: 03/12/24 16:46 Dose: 200 mls/hr Documented By: TAMI Ioversol (Optiray 320 100ml) 94 ml IV ONCE ONE Stop: 03/12/24 17:43 Last Admin: 03/12/24 17:43 Dose: 94 ml Documented By: SANG Imaging Data Radiologist's Impression: Abdomen/Pelvis CT 03/12/24 15:54 INDICATION: Right flank pain and fever. History of ureterostomy and bladder cancer. COMPARISON: CT abdomen pelvis from 12/31/2021. TECHNIQUE: Axial CT images of the abdomen and pelvis were obtained following IV contrast administration. Coronal and sagittal reformations were reviewed. FINDINGS: Subsegmental atelectasis in the lung bases. Small right pleural effusion. Gallstones in the gallbladder. The liver, spleen, pancreas and adrenal glands appear unremarkable. Moderate to severe right hydronephrosis. Moderate left hydronephrosis. No obstructing ureteral calculus seen. Right-sided ureteral stent is malpositioned in the distal most aspect of the right ureter and extending out of the urostomy. Simple cyst in the left kidney measuring 2.5 cm. Retroperitoneal lymph nodes measuring up to 0.8 cm, previously 1 cm. Small hiatal hernia. Negative for abdominal aortic aneurysm or dissection. Periumbilical hernia containing fat and small bowel loops. No evidence of bowel obstruction/colitis/appendicitis. No free air. No drainable fluid collection. Degenerative changes in the spine. Bilateral hip prostheses cause streak artifact in the pelvis limiting evaluation of this area. No acute osseous abnormality evident. IMPRESSION: 1. Moderate to severe right hydronephrosis. Moderate left hydronephrosis. No obstructing ureteral calculus seen. Right-sided ureteral stent is malpositioned in the distal most aspect of the right ureter and extending out of the urostomy. 2. Subsegmental atelectasis in the lung bases. Small right pleural effusion. 3. Cholelithiasis. Electronically signed by Milton Ramírez 03-12-2024 6:10 PM Discharge Plan Visit Data Chief Complaint: Flank Pain Stated Complaint: FEVER, PAIN IN [facility] KIDNEY ED Provider: Analisa De La O Discharge Problem: Ureteral obstruction, right, Presence of urostomy, Displacement of indwelling ureteral stent, sequela Forms Stand Alone Forms: My [facility] [employer] Prescriptions Prescriptions: No Action atorvastatin 80 mg tablet 80 mg PO HS Qty: 90 3RF sertraline [Zoloft] 100 mg tablet 100 mg PO HS Qty: 90 3RF vitamin B complex [B Complex-Vitamin B12] tablet 1 tab PO HS magnesium oxide 400 mg magnesium tablet 400 mg PO DAILY PreserVision AREDS 2 Plus MV 200 mcg-15 mcg- 5 mg-1 mg capsule 1 cap PO DAILY vitamin E 1,000 unit Capsule 1,000 unit PO HS coenzyme Q10 [CoQ-10] 100 mg Capsule 100 mg PO HS biotin 2,500 mcg Capsule 2,500 mcg PO HS Vitron-C 65 mg iron- 125 mg Tablet,Delayed Release (Dr/Ec) 1 tab PO HS Glucosamine Chondroitin 550-30-1 mg Capsule 1 cap PO HS aspirin [Kallie Low Dose Aspirin] 81 mg tablet,delayed release (DR/EC) 81 mg PO QPM Rx Instructions: Take to prevent blood clots. Referrals Referrals: Saeed Devlin DO [Primary Care Provider] -
[2024-03-12] MEDS: OPTIRAY 320 100ml IV ONE (17:43)
--- NOTE | 2024-03-12 18:11 | CT Scan Report ---
INDICATION: Right flank pain and fever. History of ureterostomy and bladder cancer. COMPARISON: CT abdomen pelvis from 12/31/2021. TECHNIQUE: Axial CT images of the abdomen and pelvis were obtained following IV contrast administration. Coronal and sagittal reformations were reviewed. FINDINGS: Subsegmental atelectasis in the lung bases. Small right pleural effusion. Gallstones in the gallbladder. The liver, spleen, pancreas and adrenal glands appear unremarkable. Moderate to severe right hydronephrosis. Moderate left hydronephrosis. No obstructing ureteral calculus seen. Right-sided ureteral stent is malpositioned in the distal most aspect of the right ureter and extending out of the urostomy. Simple cyst in the left kidney measuring 2.5 cm. Retroperitoneal lymph nodes measuring up to 0.8 cm, previously 1 cm. Small hiatal hernia. Negative for abdominal aortic aneurysm or dissection. Periumbilical hernia containing fat and small bowel loops. No evidence of bowel obstruction/colitis/appendicitis. No free air. No drainable fluid collection. Degenerative changes in the spine. Bilateral hip prostheses cause streak artifact in the pelvis limiting evaluation of this area. No acute osseous abnormality evident. IMPRESSION: 1. Moderate to severe right hydronephrosis. Moderate left hydronephrosis. No obstructing ureteral calculus seen. Right-sided ureteral stent is malpositioned in the distal most aspect of the right ureter and extending out of the urostomy. 2. Subsegmental atelectasis in the lung bases. Small right pleural effusion. 3. Cholelithiasis. Electronically signed by Milton Ramírez 03-12-2024 6:10 PM
[2024-03-12 18:49] LABS: Adenovirus PCR Not Detected (NotDetected); Bordetella parapertussis PCR Not Detected (NotDetected); Bordetella pertussis PCR Not Detected (NotDetected); Chlamydia pneumoniae PCR Not Detected (NotDetected); Coronavirus 229E PCR Not Detected (NotDetected); Coronavirus CoV-2 (COVID19)PCR Not Detected (NotDetected); Coronavirus HKU1 PCR Not Detected (NotDetected); Coronavirus NL63 PCR Not Detected (NotDetected); Coronavirus OC43PCR Not Detected (NotDetected); Human Metapneumovirus PCR Not Detected (NotDetected); Influenza A PCR Not Detected (NotDetected); Influenza B PCR Not Detected (NotDetected); Mycoplasma pneumoniae PCR Not Detected (NotDetected); Parainfluenza Virus 1 PCR Not Detected (NotDetected); Parainfluenza Virus 2 PCR Not Detected (NotDetected); Parainfluenza Virus 3 PCR Not Detected (NotDetected); Parainfluenza Virus 4 PCR Not Detected (NotDetected); Respiratory Syncytial VirusPCR Not Detected (NotDetected); Rhinovirus/Enterovirus PCR DETECTED (NotDetected)
--- NOTE | 2024-03-12 20:21 | History & Physical Report ---
Date of Service March 12, 2024 Assessment & Plan (1) Displacement of indwelling ureteral stent, sequela: Plan: 78yo male with history of bladder cancer s/p radical cystectomy with ilial conduit, right sided ureteral stent presenting with right flank pain and fever. Patient has had some issues with his urostomy tube moving out of his stoma and has been pushing it back in. Possible infection. Patient with hydronephrosis, displacement of right sided ureteral stent. -Admit to medical -Urology consultation appreciated -Monitor I/O -Keep NPO for now for possible stent exchange in AM -Continue gentle IVF - NSS at 80mL/hr x 2L ordered -Tylenol PRN pain or fever -Zofran PRN nausea -Follow cultures, blood and urine sent from the ER -Zosyn 4.5gm IV q 8h (2) Presence of urostomy: Plan: Patient with history of high grade urothelial malignancy s/p radical cystectomy with ileal conduit formation. He follows with Urology. Reports some malfunction of his urostomy tube. ?secondary to displaced stent. Patient reports normal UOP with no blood or sediment -Urology consultation appreciated for evaluation fo Urostomy tube as well as stent displacement -Continue IVF, Tylenol and Zofran PRN Plan Chronic Medical Conditions: CAD - patient denies chest pain -Continue Atorvastatin -Hold ASA for possible intervention in AM SRI - patient reports compliance with CPAP -CPAP qHS Constipation -Continue Senna 8.6mg po qAM -PRN Miralax and Magnesium hydroxide F/E/N - NSS at 80mL/hr x 2 bags, electrolytes WNL, NPO for now Ppx - SCDs to bilateral LE Code - Full Dispo - Admit to medical History of Present Illness Chief Complaint: malfunctioning urostomy tube and stent Primary Care Provider: Saeed Devlin DO Reji Morales is a 78yo male with history of invasive bladder cancer, 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 Patient with with right sided ureteral stent. Urostomy tube in place. He reports that over the last several weeks he has had a gradual malpositioning of his urostomy tube. He has had the tube come out of the stoma several inches and has been pushing it back in. He also reports removing his bag and letting the urostomy tube drain onto a towel. He developed fever two days ago as well as weakness and fatigue. He denies flank pain. Urine in the bag has been of usual amount, clean with no reported sediment or blood. No additional complaints - patient denies chest pain, cough, SOB, vomiting or diarrhea. In the ER patient is afebrile, HD stable and HD stable. Patient was replacing his Urostomy bag at the time of my encounter. Per ER team - this case was discussed with Urology prior to admission. Admission was recommended and patient will likely have stent replaced in AM. ER Course: NSS x 1L Tylenol 1gm Zosyn 4.5gm Allergies Allergy/AdvReac Type Severity Reaction Status Date / Time No Known Drug Allergies Allergy Mild Verified 11/29/23 13:52 Home Medications Medication Instructions Recorded Confirmed Type coenzyme Q10 100 mg capsule 100 mg PO HS 01/30/18 11/29/23 History (CoQ-10) vitamin E 670 mg (1,000 unit) 1,000 unit PO HS 01/30/18 11/29/23 History capsule biotin 2,500 mcg capsule 2,500 mcg PO HS 06/21/18 11/29/23 History iron,carbonyl 65 mg-vitamin C 125 1 tab PO HS 07/04/18 11/29/23 History mg tablet,delayed release (Vitron-C) vitamin B complex (B 1 tab PO HS 11/09/18 11/29/23 History Complex-Vitamin B12 tablet) glucosamine sulf dipot 1 cap PO HS 11/12/21 11/29/23 History chlr,msm,chond 550 mg-C 30 mg-rex 1 mg capsule (Glucosamine Chondroitin) aspirin 81 mg tablet,delayed 81 mg PO QPM 01/05/22 11/29/23 History release (Kallie Low Dose Aspirin) atorvastatin 80 mg tablet 80 mg PO HS #90 tabs 05/30/23 11/29/23 Rx sertraline 100 mg tablet (Zoloft) 100 mg PO HS #90 tabs 11/02/23 11/29/23 Rx magnesium oxide 400 mg PO DAILY 11/29/23 11/29/23 History mv-mn-folic 200 mcg-vit K 15 1 cap PO DAILY 11/29/23 11/29/23 History mcg-lutein 5 mg-zeaxanthin 1 mg capsule (PreserVision AREDS 2 Plus Multivit) Past Med/Surg History Problem List Displacement of indwelling ureteral stent, sequela (Acute) Presence of urostomy (Acute) Ureteral obstruction, right (Acute) Presence of urostomy Dizziness Peripheral neuropathy Demyelinating neuropathy Pelvic abscess in male Cervical lymphadenopathy Fatigue Impaired range of motion of cervical spine Carpal tunnel syndrome 11-11-22 Left Carpal Tunnel Release(Left) - Adarsh Slaughter DO Arthritis Hydronephrosis, left Stented coronary artery Hip bursitis, left Carcinoma of prostate Primary bladder malignant neoplasm Nasal congestion Vitamin D deficiency Hearing loss Blepharitis of both eyes Murmur, cardiac IT band syndrome Male erectile disorder of organic origin (Acute) Primary osteoarthritis of left knee (Acute) Elevated fasting blood sugar (Chronic) Hyperlipidemia Medical History History of COVID-19 diagnosed 03/15/23 via home test--fatigue, nasal congestion, loss of appetite--resolved, no symptoms now Neuropathy Anxiety History of blood transfusion 2008 d/t bleeding in bladder per pt CAD (coronary artery disease) Stents x6 ([facility]/2005) HLD (hyperlipidemia) Lumbar spondylosis Sleep apnea CPAP (compliant) Depression with anxiety Bladder cancer 2013 - TURBT 2017. 05/2022 total cystectomy w/ ileal conduit formation. ongoing immunotherapy. Chronic back pain Prostate cancer 2005 > prostatectomy Anemia chronic Hearing deficit wears hearing aids Surgical History History of carpal tunnel surgery of right wrist 04-21-23 R wrist History of carpal tunnel surgery of left wrist S/P ileal conduit H/O total cystectomy w/ ileal conduit formation Status post right hip replacement History of left hip replacement 12-02-21 S/P L MIGUEL with Dr Mcfarland S/P hip replacement Right MIGUEL (07/07/21): SAB at L3/4 x1 attempt at [facility]. No issues noted per post-op anesthesia progress note. History of tooth extraction S/P LASIK surgery of both eyes H/O cataract removal with insertion of prosthetic lens bilat History of colonoscopy with polypectomy 02/14/2019 anesthesia progress note: "The patient came to the PACU coughing with an 02 sat of 91. His breath sounds were coarse. He was given a duoneb treatment with almost complete resolution of his coughing, his 02 sat rudi to 100% and he felt much better. I presume that he aspirated saliva as there was no apparent aspiration during the procedure. The patient was presumed to have aspirated saliva and a CXR was odered which was read as no acute disease.He was coached to cough and deep breathe and he was discharged with a room air sat of 99%. He was discharged with an incentive spirometer and instructed to call Dr. Valencia or go to the ED if he develops a fever." No subsequent issues upon chart review, confirmed by pt at 2020 PAT appointment. History of wisdom tooth extraction History of repair of inguinal hernia Open Left Indirect Inguinal Hernia repair 10/17/2018: LMA#4, atraumatic. No issues per anesthesia progress note. History of open reduction and internal fixation (ORIF) procedure right ankle--hardware in place History of prostate biopsy malignant History of biopsy of bladder x2 History of esophagogastroduodenoscopy (EGD) History of right inguinal hernia repair History of cystoscopy multiple d/t bladder cancer History of bladder surgery x2; TURBT on 02/14/2018: LMA #4, atraumatic x 1. No issues per anesthesia progress note. H/O radical prostatectomy 2004 History of tonsillectomy and adenoidectomy History of detached retina repair right x2 History of vitrectomy x2 (right) History of cardiac cath 2006, was having upper repiratory problems/neck pain-turned out to be angina, [place] [facility] [place] History Mother , Age 90 Congestive heart failure Anxiety disorder Depression Father , Age 79 Malignant melanoma of skin Heart disease Leukemia Myocardial infarction Brother Prostate cancer Spindle cell sarcoma Melanoma Other Cancer Denies family history of Ovarian cancer Breast cancer Colorectal cancer Social History Smoking Status: Former smoker Tobacco Type: Cigarettes Second Hand Exposure: Yes (hx.); Do You Dip or Chew Tobacco: No; Hx Alcohol Use: Yes Alcohol type: beer, wine, hard liquor and other Alcohol Intake Frequency: 2-3 x/Week Alcohol Intake Frequency Comment: 1-2 x/week Hx Substance Use: No Preferred Language: Greek Communication Ability: Effective Visual Impairment: Limited Hearing Ability: Use of Hearing Aid Vehicle Maintenance Technician Required: No Beliefs That Will Affect Care: None and Spiritual marital status: Current Living Situation: Spouse Current Living Situation Comment: 2 story home with current occupational status: retired How many Children do You have: 4 Other Information That Helps Us Care for You: No Feels Safe at Home: Yes Safety Concerns: Feels Safe At This Time Childhood Exposure to Second-Hand Smoke: Yes Diet: regular caffeine: Yes during the past year weight has: remained stable Dental Care, Regularly: Yes Physical Activity Frequency: Daily Seatbelt Use: always Sunscreen Use: Yes Do you think of yourself as: straight/heterosexual Sexual Activity: has been sexually active, but not for at least 12 months Gender Identity: Male Assistive Devices: CPAP, Glasses and Hearing Aid - Bilateral Review of Systems Review of Systems: All systems reviewed & are unremarkable except as noted in HPI & below Physical Exam Physical Exam: General: patient resting comfortably, NAD, non-toxic in appearance, AA&O x 4 Skin: warm, dry, intact, no rashes or lesions HEENT: NC/AT, PERRL, EOMI, anicteric sclera, conjunctiva without injection, external ear normal to inspection and nontender, nares patent, moist mucus membranes, dentition intact, no oropharyngeal lesions, neck supple, trachea m idline, no LAD, no thyromegaly, no JVD Heart: +S1/S2, regular, no m/r/g Lungs: equal air entry bilaterally, no rales/rhonchi/wheezes Abd: +BS, soft, NT/ND, no masses/organomegaly/ascites, urostomy site inspected with healthy appearing stoma, clear urine present Ext: warm, 2+ pulses in UE/LE bilaterally, no clubbing/cyanosis or edema Neuro: nonfocal, patient AA&O x 4, speech intact, no facial droop, moving all extremities on command with equal strength 5/5 Results & Data Results & Data Vital Signs (Past 12 Hours) Vital Signs Temp Pulse Pulse Resp BP BP Pulse Ox 03/12/24 18:11 53 L 20 103/57 L 95 03/12/24 16:09 36.9 C 60 15 107/48 L 94 03/12/24 16:01 63 03/12/24 14:40 37.2 C 62 20 108/53 L 95 O2 Del Method 03/12/24 18:11 Room Air 03/12/24 16:09 Room Air 03/12/24 16:01 03/12/24 14:40 Room Air Laboratory Results Laboratory Results WBC 9.82 K/ul (4.8-10.8) 03/12/24 15:55 RBC 3.96 M/uL (4.70-6.10) L 03/12/24 15:55 Hgb 11.5 g/dl (14.0-18.0) L 03/12/24 15:55 Hct 34.2 % (42.0-52.0) L 03/12/24 15:55 MCV 86.4 fL (80.0-100.0) 03/12/24 15:55 MCH 29.0 pg (25.0-34.0) 03/12/24 15:55 MCHC 33.6 g/dL (32.0-36.0) 03/12/24 15:55 RDW Std Deviation 42.8 fL (36.4-46.3) 03/12/24 15:55 RDW Coeff of Rula 13.5 % (11.5-14.5) 03/12/24 15:55 Plt Count 141 K/uL (130-400) 03/12/24 15:55 MPV 9.2 fL (9.4-12.4) L 03/12/24 15:55 Immature Gran % (Auto) 0.4 % 03/12/24 15:55 Neut % (Auto) 78.0 % 03/12/24 15:55 Lymph % (Auto) 9.2 % 03/12/24 15:55 [place] % (Auto) 11.5 % 03/12/24 15:55 Eos % (Auto) 0.6 % 03/12/24 15:55 Baso % (Auto) 0.3 % 03/12/24 15:55 Neut # (Auto) 7.66 K/uL (1.40-6.50) H 03/12/24 15:55 Lymph # (Auto) 0.90 K/uL (1.20-3.40) L 03/12/24 15:55 [place] # (Auto) 1.13 K/uL (0.11-0.59) H 03/12/24 15:55 Eos # (Auto) 0.06 K/uL (0.00-0.50) 03/12/24 15:55 Baso # (Auto) 0.03 K/uL (0.00-0.20) 03/12/24 15:55 Immature Gran # (Auto) 0.04 K/uL (0.01-0.20) 03/12/24 15:55 Sodium 132 mmol/L (136-145) L 03/12/24 15:55 Potassium 3.7 mmol/L (3.5-5.1) 03/12/24 15:55 Chloride 99 mmol/L (98-107) 03/12/24 15:55 Carbon Dioxide 26 mmol/L (21-32) 03/12/24 15:55 Anion Gap 7 (3-11) 03/12/24 15:55 BUN 23 mg/dl (6-23) 03/12/24 15:55 Creatinine 1.53 mg/dl (0.6-1.4) H 03/12/24 15:55 Est Cr Clr Drug Dosing 39.1 ml/min 03/12/24 15:55 eGFR 45.96 03/12/24 15:55 BUN/Creatinine Ratio 15.0 (10-20) 03/12/24 15:55 Glucose 90 mg/dl (70-99(Fasting)) 03/12/24 15:55 Lactate 0.9 mmol/L (0.4-2.0) 03/12/24 17:51 Calcium 8.6 mg/dl (8.6-10.3) 03/12/24 15:55 Total Bilirubin 0.9 mg/dl (0.2-1.0) 03/12/24 15:55 AST 17 U/L (13-39) 03/12/24 15:55 ALT 15 U/L (7-52) 03/12/24 15:55 Alkaline Phosphatase 64 U/L (34-104) 03/12/24 15:55 Total Protein 7.1 gm/dl (6.0-8.3) 03/12/24 15:55 Albumin 3.8 gm/dl (3.4-5.0) 03/12/24 15:55 Globulin 3.3 gm/dl (2.5-4.0) 03/12/24 15:55 Albumin/Globulin Ratio 1.2 (0.9-2) 03/12/24 15:55 Procalcitonin 0.95 ng/ml (0-0.5) H 03/12/24 15:55 Urine Color Yellow 03/12/24 16:13 Urine Appearance Cloudy (Clear) A 03/12/24 16:13 Urine pH 6.5 (4.5-7.5) 03/12/24 16:13 Ur Specific [place] 1.009 (1.000-1.030) 03/12/24 16:13 Urine Protein 1+ (Negative) H 03/12/24 16:13 Urine Glucose (UA) Negative (Negative) 03/12/24 16:13 Urine Ketones Negative (Negative) 03/12/24 16:13 Urine Blood 1+ (Negative) H 03/12/24 16:13 Urine Nitrite Negative (Negative) 03/12/24 16:13 Urine Bilirubin Negative (Negative) 03/12/24 16:13 Urine Urobilinogen Negative (Negative) 03/12/24 16:13 Ur Leukocyte Esterase 3+ (Negative) H 03/12/24 16:13 Urine WBC (Auto) >50 /hpf (0-5) H 03/12/24 16:13 Urine RBC (Auto) 0-2 /hpf (0-2) 03/12/24 16:13 U Hyaline Cast (Auto) 11-20 /lpf (0-2) H 03/12/24 16:13 U Epithel Cells (Auto) 0-2 /hpf (0-2) 03/12/24 16:13 Urine Bacteria (Auto) 4+ (None Seen) H 03/12/24 16:13 Adenovirus (PCR) Not Detected (NotDetected) 03/12/24 16:22 B. pertussis DNA (PCR) Not Detected (NotDetected) 03/12/24 16:22 B.parapertussis DNA PCR Not Detected (NotDetected) 03/12/24 16:22 C. pneumoniae DNA (PCR) Not Detected (NotDetected) 03/12/24 16:22 Coronavirus OC43 (PCR) Not Detected (NotDetected) 03/12/24 16:22 Coronavirus HKU1 (PCR) Not Detected (NotDetected) 03/12/24 16:22 Coronavirus 229E (PCR) Not Detected (NotDetected) 03/12/24 16:22 SARS-CoV-2 (PCR) Not Detected (NotDetected) 03/12/24 16:22 Coronavirus NL63 (PCR) Not Detected (NotDetected) 03/12/24 16:22 Human Metapneumovir PCR Not Detected (NotDetected) 03/12/24 16:22 Influenza Type A (PCR) Not Detected (NotDetected) 03/12/24 16:22 Influenza Type B (PCR) Not Detected (NotDetected) 03/12/24 16:22 M. pneumoniae (PCR) Not Detected (NotDetected) 03/12/24 16:22 Parainfluenza 1 (PCR) Not Detected (NotDetected) 03/12/24 16:22 Parainfluenza 2 (PCR) Not Detected (NotDetected) 03/12/24 16:22 Parainfluenza 3 (PCR) Not Detected (NotDetected) 03/12/24 16:22 Parainfluenza 4 (PCR) Not Detected (NotDetected) 03/12/24 16:22 RSV (PCR) Not Detected (NotDetected) 03/12/24 16:22 Entero/Rhino (PCR) DETECTED (NotDetected) A 03/12/24 16:22 Impressions Abdomen/Pelvis CT 03/12/24 15:54 INDICATION: Right flank pain and fever. History of ureterostomy and bladder cancer. COMPARISON: CT abdomen pelvis from 12/31/2021. TECHNIQUE: Axial CT images of the abdomen and pelvis were obtained following IV contrast administration. Coronal and sagittal reformations were reviewed. FINDINGS: Subsegmental atelectasis in the lung bases. Small right pleural effusion. Gallstones in the gallbladder. The liver, spleen, pancreas and adrenal glands appear unremarkable. Moderate to severe right hydronephrosis. Moderate left hydronephrosis. No obstructing ureteral calculus seen. Right-sided ureteral stent is malpositioned in the distal most aspect of the right ureter and extending out of the urostomy. Simple cyst in the left kidney measuring 2.5 cm. Retroperitoneal lymph nodes measuring up to 0.8 cm, previously 1 cm. Small hiatal hernia. Negative for abdominal aortic aneurysm or dissection. Periumbilical hernia containing fat and small bowel loops. No evidence of bowel obstruction/colitis/appendicitis. No free air. No drainable fluid collection. Degenerative changes in the spine. Bilateral hip prostheses cause streak artifact in the pelvis limiting evaluation of this area. No acute osseous abnormality evident. IMPRESSION: 1. Moderate to severe right hydronephrosis. Moderate left hydronephrosis. No obstructing ureteral calculus seen. Right-sided ureteral stent is malpositioned in the distal most aspect of the right ureter and extending out of the urostomy. 2. Subsegmental atelectasis in the lung bases. Small right pleural effusion. 3. Cholelithiasis. Electronically signed by Milton Ramírez 03-12-2024 6:10 PM Code Status & VTE Plan VTE Prophylaxis Plan VTE Prophylaxis will be ordered: Yes PG Care Time/CCT Total # of Minutes Spent Total Time Spent with Patient: Total time spent is greater than 50% in coordination of care (as documented) at patient's floor/unit and/or counseling patient: Coding Level of Care Code 63903 INT INP/OBS CARE 3/75MIN Diagnoses Displacement of indwelling ureteral stent, sequela T83.122S Presence of urostomy Z93.6
[2024-03-12] MEDS ORDERED: ONDANSETRON INJ 2 MG/ML 2 ML VIAL IV PRN (21:44)
[2024-03-12] MEDS ORDERED: MAGNESIUM HYDROXIDE SUSP 30 ML UDC PO PRN (22:12)
[2024-03-12] MEDS: SODIUM CHLORIDE 0.9% 1,000 ML IV SCH (22:23)
[2024-03-12] MEDS: PIPERACILLIN/TAZOBACTAM 4.5 GM/100 ML BAG IV SCH (22:30)
[2024-03-12] MEDS ORDERED: POLYETHYLENE (MIRALAX) 17 GM PACK PO PRN (23:21)
--- OUTSIDE RECORDS SUMMARY | 2024-03-13 01:36 | External Medical Summary | Continuity of Care Document ---
Author Name Unknown Organization [facility] Address [address] [place] [id number] Care Team Providers Care Service Delivery Director Name Role Phone Saeed Devlin Primary Care Physician [phone] Encounter [facility] [id number] Date(s): 01/23/24 - 01/23/[address] [id number] [phone] Discharge Disposition: Home or Self Care Attending Physician: MD Duval Monika Referring Physician: MD Duval Monika Allergies, Adverse Reactions, Alerts No Known Allergies Medications aspirin 81 mg oral delayed release tablet Start: 06/01/22 11:49:00 AM EST, 1 tab, PO, Daily Start Date: 06/01/22 Status: Ordered biotin Start: 08/14/18 9:08:00 AM EDT, 1,000 mcg =, PO, Daily Start Date: 08/14/18 Status: Ordered ciprofloxacin 500 mg oral tablet Start: 11/24/23 3:31:00 PM EDT, 1 tab, PO, q12h, Disp# 14 tab, Refills: 0, Pharmacy: [facility] Start Date: 11/24/23 Stop Date: 12/01/23 Status: Ordered Co-Q10 50 mg oral capsule Start: 06/22/21 9:10:00 AM EDT, 1 cap, PO, Daily Start Date: 06/22/21 Status: Ordered Colace 100 mg oral capsule Start: 06/18/22 7:47:00 AM EDT, 1 cap, PO, bid, Disp# 60 cap, PRN: as needed for constipation, Pharmacy: [facility] Start Date: 06/18/22 Status: Ordered eye supplement Start: 08/14/18 9:08:00 AM EDT, eye supplement, 1 tab, PO, Daily Start Date: 08/14/18 Status: Ordered ferrous sulfate 200 mg (65 mg elemental iron) oral tablet Start: 06/01/22 11:50:00 AM EST, 1 tab, PO, Daily Start Date: 06/01/22 Status: Ordered Focus Factor Start: 06/22/21 9:10:00 AM EDT, Focus Factor, 1 tab, PO, Daily Start Date: 06/22/21 Status: Ordered Lipitor 80 mg oral tablet Start: 06/18/22 7:41:00 AM EDT, 1 tab, PO, qhs Start Date: 06/18/22 Status: Ordered Mag-Ox 400 Start: 07/18/23 10:29:00 AM EDT, 400 mg =, PO, Daily Start Date: 07/18/23 Status: Ordered PreviDent 5000 Booster 1.1% topical paste Start: 10/04/22 2:20:00 PM EDT, 100 unknown unit Start Date: 10/04/22 Status: Ordered sertraline 100 mg oral tablet Start: 06/01/22 2:02:00 PM EST, 1 tab, PO, Daily Start Date: 06/01/22 Status: Ordered Zicam Start: 06/14/22 8:33:00 AM EDT, Zicam, 1 tablet prn Start Date: 06/14/22 Status: Ordered Problem List Condition Confirmation Course Effective Dates Status H ealth Status Informant ACTINIC KERATOSIS Confirmed Active Arthritis Confirmed Active Benign neoplasm of skin Confirmed Active Benign nevus Confirmed Active Bladder control Confirmed Active Depressive disorder Confirmed Active FHx: melanoma 1 Confirmed Active Gastroesophageal reflux disease Confirmed Active High cholesterol Confirmed Active Bladder cancer Confirmed Active Melanoma in situ Confirmed Active Encounter for immunotherapy Confirmed Active Seborrheic keratosis Confirmed Active 1father/brother Procedures Procedure Date Related Diagnosis Body Site Status Carpal tunnel 1 11/11/22 Completed Chemotherapy 2 01/2019 Completed Colonoscopy 01/2019 Completed Shave biopsy and cauterizati on of skin 3 02/03/15 Completed Excision of melanoma 08/14/14 Comp leted Shave biopsy and cauterizati on of skin 4 07/31/14 Completed Resection, Bladder 09/18/13 Comple emma Shave biopsy of skin 07/11/12 Comp leted Cataract surgery, Left 2012 Co mpleted Cataract surgery, Right 2011 C ompleted Right Eye Vitrectomy x 2 - D etached Retina 5 2011 Completed Bladder Surgery 1 stent 07/2008 C ompleted ORIF - Open reduction and in ternal fixation of fracture,Right Ankle 02/2006 Completed Cardiac catheterization 2005 C ompleted Primary repair of inguinal h ernia. Right 2006 Completed Stent placement, Coronary Artery x 6 2005 Completed Prostatectomy 2004 Completed Shave biopsy of skin 06/24/99 Comp leted Bladder biopsy sample Com pleted CHEMO PROLONG INFUSE W/PUMP Completed Extraction of wisdom tooth Completed Hip replacement bilateral 6 Completed 1surgery 2bladder 3with curettage 4with curettage 5detached retina 2011 6R ; L Results Radiology Reports * Exam Date Time Procedure Performing Provider Status 01/23/24 1:[address] Thorax w/ Contrast Elaine Ulrich; Modified Notes: (CT Thorax w/ Contrast) Reason For Exam: disease assessment [address] Thorax w/ Contrast EXAMINATION: CT Abdomen and Pelvis w/ + w/o Contrast, CT Thorax w/ Contrast CLINICAL HISTORY: C67.9: Malignant neoplasm of bladder, unspecified; disease assessment 9 month post treatment COMPARISON: CT urogram 12/28/2023 CT thorax 10/31/2023 TECHNIQUE: CT Abdomen and Pelvis w/ + w/o Contrast, CT Thorax w/ Contrast CONTRAST: Contrast Type (IV): Omnipaque 350 Contrast Volume (IV) in ml: 100.00 DOSE: Total Reported Dose Length Product (DLP) = 1494.20 mGy.cm FINDINGS: Chest Pleura and Lungs: Stable left upper lobe 0.5 cm partially calcified nodule Left lower lobe calcified granuloma. Bibasilar atelectasis versus scarring. No effusion or pneumothorax. Central airways: Patent without endobronchial lesion. Lymph nodes: No lymphadenopathy. Thyroid and Mediastinum: Thyroid is unremarkable. No mediastinal abnormalities. Heart and Great vessels: Normal size heart without pericardial effusion. Atherosclerotic calcifications of the aortic valve, coronary arteries, and thoracic aorta. Abdomen Liver, Gallbladder \\T\\ bile ducts: Unchanged, measuring 18.9 cm craniocaudal. Unchanged cholelithiasis. No intra or extrahepatic biliary dilation. Pancreas: Normal Spleen: Normal Adrenals: Normal Kidneys, collecting system and ureters: Ileal conduit. Unchanged right hydroureteronephrosis with contrast layering dependently and smoothly tapering up to the level of the ileal conduit anastomosis.The visualized right ureter is opacified with possible filling defects at series 11, image 25 and series 11, image 109. However there is no soft tissue enhancement in these regions on portal venous phase. Thus these are likely caused by precipitated urine. Left renal cyst. Unchanged mild perinephric stranding. Retroperitoneum, lymph nodes, and vessels: Atherosclerotic calcification of the abdominal aorta andits branches. Bowel \\T\\ Mesentery: Nonobstructed bowel. No free air or free fluid. No ascites. Colonic diverticulosis without diverticulitis. Pelvis Bladder: Cystectomy with ileal conduit in the right lower quadrant. Prostate, seminal vesicles, external genitalia: Normal Extraperitoneal, lymph nodes, vessels: No pelvic lymphadenopathy. Osseous and body wall: Bilateral hip arthroplasties. Unchanged T12 compression deformity. Degenerative changes of the thoracolumbar spine. Unchanged fat- containing umbilical hernia without obstruction. IMPRESSION: 1. No evidence of recurrent renal cell carcinoma or new metastases. 2. Unchanged chronic right hydroureteronephrosis with possible filling defects likely due to urine precipitation. [place] Act 112: This study does not meet the requirements of [place] Act 112. Dr. Wil Tolentino MD, [place] is the dictating resident. Finalized reports status indicates that the attending has reviewed the images and report, and agrees with the interpretation. Preliminary report status should be regarded as NOT interpreted by the attending radiologist. Workstation ID: [id number] Final Dictated by:MD Tolentino Daniel Dictated DT/TM:01/23/2024 4:56 Resident:MD Tolentino Daniel Signed by:MD Truong Mohanned Signed (Electronic Signature):01/23/2024 4:[address] Thorax w/ Contrast ADDENDUM BEGINS Typographical system error from [employer] dictation system: First line of impression should read "No recurrent or metastatic disease." Workstation ID: [id number] ADDENDUM ENDS Final Dictated by:MD Tolentino Daniel Dictated DT/TM:01/24/2024 5:07 Resident:MD Tolentino Daniel Signed by:MD Truong Mohanned Signed (Electronic Signature):01/24/2024 5:07 p * Exam Date Time Procedure Performing Provider Status 01/23/24 1:[address] Abdomen and Pelvis w/ + w/o Vitaliya st JuárezmanElaine; Modified Notes: (CT Abdomen and Pelvis w/ + w/o Contrast) Reason For Exam: disease assessment [address] Abdomen and Pelvis w/ + w/o Contrast ADDENDUM BEGINS Typographical system error from [employer] dictation system: First line of impression should read "No recurrent or metastatic disease." Workstation ID: [id number] ADDENDUM ENDS Final Dictated by:MD Tolentino Daniel Dictated DT/TM:01/24/2024 5:07 Resident:MD Tolentino Daniel Signed by:MD Truong Mohanned Signed (Electronic Signature):01/24/2024 5:[address] Abdomen and Pelvis w/ + w/o Contrast EXAMINATION: CT Abdomen and Pelvis w/ + w/o Contrast, CT Thorax w/ Contrast CLINICAL HISTORY: C67.9: Malignant neoplasm of bladder, unspecified; disease assessment 9 month post treatment COMPARISON: CT urogram 12/28/2023 CT thorax 10/31/2023 TECHNIQUE: CT Abdomen and Pelvis w/ + w/o Contrast, CT Thorax w/ Contrast CONTRAST: Contrast Type (IV): Omnipaque 350 Contrast Volume (IV) in ml: 100.00 DOSE: Total Reported Dose Length Product (DLP) = 1494.20 mGy.cm FINDINGS: Chest Pleura and Lungs: Stable left upper lobe 0.5 cm partially calcified nodule Left lower lobe calcified granuloma. Bibasilar atelectasis versus scarring. No effusion or pneumothorax. Central airways: Patent without endobronchial lesion. Lymph nodes: No lymphadenopathy. Thyroid and Mediastinum: Thyroid is unremarkable. No mediastinal abnormalities. Heart and Great vessels: Normal size heart without pericardial effusion. Atherosclerotic calcifications of the aortic valve, coronary arteries, and thoracic aorta. Abdomen Liver, Gallbladder \\T\\ bile ducts: Unchanged, measuring 18.9 cm craniocaudal. Unchanged cholelithiasis. No intra or extrahepatic biliary dilation. Pancreas: Normal Spleen: Normal Adrenals: Normal Kidneys, collecting system and ureters: Ileal conduit. Unchanged right hydroureteronephrosis with contrast layering dependently and smoothly tapering up to the level of the ileal conduit anastomosis.The visualized right ureter is opacified with possible filling defects at series 11, image 25 and series 11, image 109. However there is no soft tissue enhancement in these regions on portal venous phase. Thus these are likely caused by precipitated urine. Left renal cyst. Unchanged mild perinephric stranding. Retroperitoneum, lymph nodes, and vessels: Atherosclerotic calcification of the abdominal aorta andits branches. Bowel \\T\\ Mesentery: Nonobstructed bowel. No free air or free fluid. No ascites. Colonic diverticulosis without diverticulitis. Pelvis Bladder: Cystectomy with ileal conduit in the right lower quadrant. Prostate, seminal vesicles, external genitalia: Normal Extraperitoneal, lymph nodes, vessels: No pelvic lymphadenopathy. Osseous and body wall: Bilateral hip arthroplasties. Unchanged T12 compression deformity. Degenerative changes of the thoracolumbar spine. Unchanged fat- containing umbilical hernia without obstruction. IMPRESSION: 1. No evidence of recurrent renal cell carcinoma or new metastases. 2. Unchanged chronic right hydroureteronephrosis with possible filling defects likely due to urine precipitation. [place] 112: This study does not [place] the [place] 112. Dr. Wil Tolentino MD, [place] is the dictating resident. Finalized reports status indicates that the attending has reviewed the images and report, and agrees with the interpretation. Preliminary report status should be regarded as NOT interpreted by the attending radiologist. Workstation ID: [id number] Final Dictated by:MD Tolentino Daniel Dictated DT/TM:01/23/2024 4:56 Resident:MD Tolentino Daniel Signed by:MD Dionne Banner Signed (Electronic Signature):01/23/2024 4:55 p Social History Social History Type Response Smoking Status Former Smoker, quit > 1 yr Sex Male Sex Representation Male (finding) Implantable Device List Procedure Provider Procedure Date Device Type Site Unknown Unknown 06/14/22 Unknown Unknown Device Identifier Serial Number Lot or Batch Number Manufacturing Date Expiration Date Distinct Identification Code MRI Safety Implantable Status Assigning Authority Unknown Unknown [id number] Unknown 08/08/26 Unknown Unknown Active Calebk chas Patient Care team information Care Team Personnel Name: Arti Smith Kimberly Position: Pharmacist BCMA Member Role: Pharmacy - Lifetime Address: [address] [address] [place] Name: MD Duval Monika Position: Physician - Hem/Onc Member Role: Lifetime Relationship Address: [address] [place] [phone] [place] Name: Arti Mahmood Ann Position: Pharmacist Member Role: Pharmacy - Lifetime Name: MD Veronica Jay D Position: Physician - Urology Member Role: Lifetime Relationship Address: [address] [place] [phone] [place] Care Team Related Persons Name: CLAYTON MOSS
--- OUTSIDE RECORDS SUMMARY | 2024-03-13 01:36 | External Medical Summary | Continuity of Care Document ---
Author Name Unknown Organization [facility] [address] Address [address] [place], [place] [id number] Care Team Providers Care Farm General Manager Name Role Phone Saeed Devlin Primary Care Physician [phone] Encounter [facility] [id number] Date(s): 02/13/24 - 02/13/24 [facility] [address] [facility] [address] [place], [place] [phone] Encounter Diagnosis Malignant neoplasm of bladder, unspecified(Final) - Discharge Disposition: Home or Self Care Attending Physician: MD Melgar Matthew G Referring Physician: MD Melgar Matthew G Allergies, Adverse Reactions, Alerts No Known Allergies Medications aspirin 81 mg oral delayed release tablet Start: 06/01/22 11:49:00 AM EST, 1 tab, PO, qPM Start Date: 06/01/22 Status: Ordered biotin Start: 08/14/18 9:08:00 AM EDT, 1,000 mcg =, PO, Daily Start Date: 08/14/18 Status: Ordered ciprofloxacin 500 mg oral tablet Start: 11/24/23 3:31:00 PM EDT, 1 tab, PO, q12h, Disp# 14 tab, Refills: 0, Pharmacy: [facility] Start Date: 11/24/23 Stop Date: 12/01/23 Status: Ordered Co-Q10 50 mg oral capsule Start: 06/22/21 9:10:00 AM EDT, 1 cap, PO, Daily Start Date: 06/22/21 Status: Ordered Colace 100 mg oral capsule Start: 06/18/22 7:47:00 AM EDT, 1 cap, PO, bid, Disp# 60 cap, PRN: as needed for constipation, Pharmacy: [facility] Start Date: 06/18/22 Status: Ordered ferrous sulfate 200 mg (65 [...] PO, Daily Start Date: 07/18/23 Status: Ordered Ocuvite Start: 02/14/24 8:15:00 AM EST, 1 tab, PO, Daily Start Date: 02/14/24 Status: Ordered Osteo Bi-Flex Start: 02/14/24 8:17:00 AM EST, PO, Daily Start Date: 02/14/24 Status: Ordered PreviDent 5000 Booster 1.1% topical paste Start: 10/04/22 2:20:00 PM EDT, 1 appl, topical, qhs Start Date: 10/04/22 Status: Ordered sertraline 100 mg oral tablet Start: 06/01/22 2:02:00 PM EST, 1 tab, PO, qPM Start Date: 06/01/22 Status: Ordered Zicam Start: [...] Site Status Carpal tunnel 1 11/11/22 Completed open radical cystectomy, b/l PNLD, ileal conduit 06/14/22 Completed Chemotherapy 2 01/2019 Completed Colonoscopy 01/2019 [...] Vitrectomy x 2 - D etached Retina 2011 Completed Bladder Surgery 1 stent 07/2008 C ompleted ORIF - Open reduction and in ternal fixation of fracture,Right Ankle 02/2006 Completed Cardiac catheterization 2005 C ompleted Primary repair of inguinal h ernia. Right 2005 Completed Stent placement, Coronary Artery x 2005 Completed Prostatectomy 2004 Completed Shave biopsy of skin 06/24/99 Comp leted Bladder biopsy sample Com pleted CHEMO PROLONG INFUSE W/PUMP Completed Extraction of wisdom tooth Completed Hip replacement bilateral 6 Completed 1surgery 2bladder 3with curettage 4with curettage 5detached retina 2011 6R ; L Results Orders for Microbiology Reports Name Date Urine Culture (CULTURE, URINE) 02/13/24 Urine Culture (CULTURE, URINE) 02/13/24 Microbiology Reports TEST:Urine.Cx STATUS:Auth (Verified) BODY SITE: SOURCE:Urine COLLECTED DATE/TIME:02/13/24 9:58 AM Status FINAL 02/15/2024 TEST:Urine.Cx STATUS:Auth (Verified) BODY SITE: SOURCE:Urine COLLECTED DATE/TIME:02/13/24 9:51 AM Culture NO GROWTH 2 DAYS Social History Social History Type Response Smoking Status Former Smoker, quit > 1 yr Sex Male Sex Representation Male (finding) Implantable Device List Procedure Provider Procedure Date Device Type Site Unknown Unknown 06/14/22 Unknown Unknown Device Identifier Serial Number Lot or Batch Number Manufacturing Date Expiration Date Distinct Identification Code MRI Safety Implantable Status Assigning Authority Unknown Unknown [id number] Unknown 08/08/26 Unknown Unknown Active Calebk chas Patient Care team information Care Team Personnel Name: Arti Smith Kimberly Position: Pharmacist BCMA Member Role: Pharmacy - Lifetime Address: [place] [phone] Name: MD Duval Monika Position: Physician - Hem/Onc Member Role: Lifetime Relationship Address: [address] [place] [id number] Name: Arti Mahmood Ann Position: Pharmacist Member Role: Pharmacy - Lifetime Name: MD Veronica Jay D Position: Physician - Urology Member Role: Lifetime Relationship Address: [address] [place] [phone] [place] Care Team Related Persons Name: CLAYTON MOSS
--- OUTSIDE RECORDS SUMMARY | 2024-03-13 01:36 | External Medical Summary | Continuity of Care Document ---
Author Name Unknown Organization [facility] Address [address] [place] [address] [id number] Care Team Providers Care Bell Valet Name Role Phone Saeed Devlin Primary Care Physician [phone] [id number] Date(s): 02/09/24 - 02/09/[address] [phone] [phone] Discharge Disposition: Home or Self Care Attending Physician: MD Tennille, Vince Chery Referring Physician: MD Melgar Matthew G Allergies, Adverse Reactions, Alerts No Known Allergies Functional Status 02/09/24 History of Fall in Last 3 Months Mathew N o Presence of Secondary Diagnosis Mathew Ye s Use of Ambulatory Aid Mathew None/bedrest /nurse assist IV/Heparin Lock Fall Risk Mathew No Gait/Transferring Fall Risk Mathew Normal /bedrest/immobile Mental Status Fall Risk Mathew Oriented t o own ability Mathew Fall Risk Score 15 Mathew Fall Risk No Risk Medications aspirin 81 mg oral delayed release tablet Start: 06/01/22 11:49:00 AM EST, 1 tab, PO, Daily Start Date: 06/01/22 Status: Ordered biotin Start: 08/14/18 9:08:00 AM EDT, 1,000 mcg =, PO, Daily Start Date: 08/14/18 Status: Ordered ciprofloxacin 500 mg oral tablet Start: 11/24/23 3:31:00 PM EDT, 1 tab, PO, q12h, Disp# 14 tab, Refills: 0, Pharmacy: [facility] [place] Start Date: 11/24/23 Stop Date: 12/01/23 Status: Ordered Co-Q10 50 mg oral capsule Start: 06/22/21 9:10:00 AM EDT, 1 cap, PO, Daily Start Date: 06/22/21 Status: Ordered Colace 100 mg oral capsule Start: 06/18/22 7:47:00 AM EDT, 1 cap, PO, bid, Disp# 60 cap, PRN: as needed for constipation, Pharmacy: [facility] [place] Start Date: 06/18/22 Status: Ordered eye supplement [...] 5detached retina 2011 6R ; L Results Laboratory List Name Date Complete Blood Count (CBC w Platelets) 1 04/10/23 Prothrombin Time w/ INR (PT/INR) 4 Renal Profile 02/09/24 Most recent to oldest [Reference Range]: 1 eGFR CKD-EPI [>60 mL/min/1.73 m2] 59 mL/ min/1.73 m2 *LOW* (02/09/24 7:56 AM) Estimated CrCl 47.16 mL/min (02/09/24 8:49 AM) MPV [9.0-12.2 fL] 9.9 fL (02/09/24 7:56 AM) RDW [11.5-14.2 %] 13.3 % (02/09/24 7:56 AM) BUN [6-23 mg/dL] 22 mg/dL (02/09/24 7:56 AM) Cret [0.70-1.30 mg/dL] 1.23 mg/dL (02/09/24 7:56 AM) Hct [39-48 %] 34.9 % *LOW* (02/09/24 7:56 AM) Hgb [13.0-17.0 g/dL] 11.8 g/dL *LOW* (02/09/24 7:56 AM) INR [0.9-1.1] 1.0 1 (02/09/24 7:56 AM) MCH [28-33 pg] 29.2 pg (02/09/24 7:56 AM) MCHC [32-36 g/dL] 33.8 g/dL (02/09/24 7:56 AM) MCV [81-96 fL] 86.4 fL (02/09/24 7:56 AM) Plts [150-350 K/uL] 181 K/uL (02/09/24 7:56 AM) PT [12.0-14.2 seconds] 13.2 seconds (02/09/24 7:56 AM) RBC [4.40-5.60 M/uL] 4.04 M/uL *LOW* (02/09/24 7:56 AM) WBC [4.0-10.4 K/uL] 7.91 K/uL (02/09/24 7:56 AM) 1Result Comment: Suggested therapeutic range for low-intensity Coumadin therapy for venous thromboembolism is INR 2.0-3.0 (ex: atrial fibrillation, history of TIA/stroke). For high risk patients, the suggested therapeutic range is INR 2.5-3.5 (ex: mechanical prosthetic valves). Radiology Reports * Exam Date Time Procedure Performing Provider Status 02/09/24 11:09 AM IR Neph Tube Placement Vik Ramirez; Final Notes: (IR Neph Tube Placement) Reason For Exam: right upper tract filling defect, no retrograde access IR Neph Tube Placement EXAMINATION: IR Neph Tube Placement CLINICAL HISTORY: C68.9: Malignant neoplasm of urinary organ, unspecified; right upper tract filling defect, no retrograde access due to ileal conduit. Plan for antegrade ureteroscopy in next two weeks. COMPARISON: Recent CT scan of the abdomen was reviewed. RAILWAY SIGNAL ELECTRICIAN: Paul Villanueva MD, FSIR BRIDGE MAINTENANCE WORKER: Thai Oro DO INTRA-PROCEDURAL MEDICATIONS: Contrast Type : 10 cc of Omnipaque 350 CONSCIOUS (MODERATE) SEDATIONS: Sedation 1:Versed Sedation Volume 1:3.5 mg Sedation 2:Fentanyl Sedation Volume 2:200 mcg Sedation Total Time:40 minutes SEDATION: The risks and benefits of moderate sedation were discussed with the patient as part of the procedural informed consent process. Physician-supervised intra- procedure moderate sedation was performed for the duration stated below using a trained independent observer who monitored the patient's level of sedation and physiologic status throughout the procedure. Pre-procedure and post-procedure sedation assessments were performed in accordance with institutional sedation policy and are documented separately in the medical record. DOSIMETRY: Fluoroscopy Time: 3.40 minutes Cumulative Dose: 80 mGy MEASUREMENTS: None SPECIMENS: None. EST. BLOOD LOSS: Less than 20cc TECHNIQUE: Informed consent was obtained from the [patient]. Benefits, symptoms and risk were explained. Patient signed informed consent. The patient was placed prone on the fluoroscopy table. Sonography demonstrated a moderately distended right renal collecting system. A suitable site for access was marked on the skin. The skin of theright posterior flank was prepped and draped. All elements of maximal sterile barrier technique, including hand hygiene, skin preparation, and sterile ultrasound techniques were followed. Timeout wasperformed. Lidocaine 1% used for subcutaneous anesthesia. An incision was made with a #11. A 21-gauge x 15-cm agatha tip needle was advanced into the kidney under real- time ultrasound guidance. Permanent sonographic images stored. However, there was never satisfactory return of urine. After multiple attempts, attempted access with ultrasound was abandoned. A suitable site for direct puncture of the renal pelvis was identified using fluoroscopic landmarks. Local anesthesia was instilled. A 22-gauge by 15- centimeter Chiba needle was inserted. After several passes, clear urine was identified. Contrast was injected for percutaneous antegrade pyelogram. Air was instilled to identify a posterior calyx. The only suitable posterior calyx below the 12th ribwas a lower pole calyx; accordingly, that calyx was targeted. Additional local anesthesia was instilled. A 21-gauge agatha-tip needle was inserted using fluoroscopic guidance into the air-filled posterior calyx. A mandril wire was inserted and entered the collecting system. The needle was removed and a Fuentes set was placed. Through the Fuentes's set, a 0.035-inch Super Stiff wire was inserted. The Fuentes set was removed. Over the 0.035-inch wire, a 10.2-Pakistani multipurpose drainage catheterwas inserted. The [place] loop was formed in the renal pelvis. Final contrast injection confirmed adequate position of the loop of the catheter in the renal pelvis. The catheter was secured to the skin u tilizing 2-0 nylon sutures. A sterile dressing was applied. The catheter was connected to a bag forgravity drainage. COMPLICATIONS: None FINDINGS: The right renal collecting system is moderately dilated but was unable to be successfully accessed using ultrasound. Percutaneous right antegrade pyelography was used and a posterior lower pole calyxbelow the 12th rib was successfully accessed. Although corroborating images were not saved, contrast was not seen to readily pass beyond the first third of the ureter. IMPRESSION: 1. Successful right nephrostomy tube change. 2. Antegrade ureteroscopy is planned for 02/20/2024. ATTENDING PHYSICIAN ATTESTATION: I was physically present in the room and supervised the performance of the procedure. Workstation ID: [id number] Final Dictated by:MD Villanueva Leslie B Dictated DT/TM:02/09/2024 4:34 Signed by:MD Villanueva Leslie B Signed (Electronic Signature):02/09/2024 4:33 p Vital Signs Most recent to oldest [Reference Range]: 1 2 3 Temperature [36.5-37.9 DegC] 36.7 DegC (02/09/24 11:15 AM) 36.5 DegC (02/09/24 8:15 AM) Heart Rate 54 bpm (02/09/24 1:09 PM) 49 bpm (02/09/24 12:35 PM) 52 bpm (02/09/24 12:00 PM) Respiratory Rate 15 br/min (02/09/24 1:09 PM) 15 br/min (02/09/24 12:35 PM) 14 br/min (02/09/24 12:00 PM) Blood Pressure 98/53mmHg (02/09/24 1:09 PM) 99/57mmHg (02/09/24 12:35 PM) 103/61mmHg (02/09/24 12:00 PM) Mean Blood Pressure 70 mmHg (02/09/24 12:35 PM) 74 mmHg (02/09/24 12:00 PM) 70 mmHg (02/09/24 11:45 AM) Cuff Pulse Pressure 45 mmHg (02/09/24 1:09 PM) 42 mmHg (02/09/24 12:35 PM) 42 mmHg (02/09/24 12:00 PM) BP Location # 1 Right Arm (02/09/24 1:09 PM) Right Arm (02/09/24 12:35 PM) Right Arm (02/09/24 12:00 PM) Social History Social History Type Response Smoking Status Former Smoker, quit > 1 yr Sex Male Sex Representation Male (finding) Implantable Device List Procedure Provider Procedure Date Device Type Site Unknown Unknown 06/14/22 Unknown Unknown Device Identifier Serial Number Lot or Batch Number Manufacturing Date Expiration Date Distinct Identification Code MRI Safety Implantable Status Assigning Authority Unknown Unknown [id number] Unknown 08/08/26 Unknown Unknown Active Unk nown Radiology H&P * MD Rich, Cheli Villela: PERFORM Event Display: Radiology H&P Authored Date: [id number] RADIOLOGY HISTORY AND PHYSICAL Click on the 'Insert Template' icon above (Stamper). Choose the appropriate H&P Update Templatefrom the list of Associated Templates and select the 'Replace' option. RADIOLOGY HISTORY AND PHYSICAL - SEDATION Name: BILL MOSS Patient Number: [id number] : 1945 Date of Service: 02/09/2024 PLANNED PROCEDURE: Right percutaneous nephrostomy ("perc neph") tube insertion Chief Complaint: h/o bladder CA, now with right-sided urinary obstruction History of Present Illness: h/o bladder CA, now with right-sided urinary obstruction and imaging suspicious for right ureteral mass. Pt. has ileal conduit and percutaneous access is requested for upcoming ureteroscopy Past Medical History: Problems Active Bladdercancer Encounterforimmunotherapy Arthritis Melanomainsitu ACTINICKERATOSIS Benignneoplasmofskin Depressivedisorder Gastroesophagealrefluxdisease Highcholesterol Bladdercontrol Seborrheickeratosis Benignnevus FHx:melanoma Surgical History: Procedure History Procedure Procedure Date Comments Bladder biopsy sample CHEMO PROLONG INFUSE W/PUMP Hip replacement bilateral - R ; L Extraction of wisdom tooth Carpal tunnel 11/11/2022 - surgery Colonoscopy 01/2019 Chemotherapy 01/2019 - bladder Shave biopsy and cauterization of skin 02/03/2015 - with curettage Excision of melanoma 08/14/2014 Shave biopsy and cauterization of skin 07/31/2014 - with curettage Resection, Bladder 09/18/2013 Shave biopsy of skin 07/11/2012 Cataract surgery, Left 2013 Right Eye Vitrectomy x 2 - Detached Retina 2012 - detached retina 2012 Cataract surgery, Right 2012 Bladder Surgery 1 stent 07/2008 ORIF - Open reduction and internal fixation of fracture, Right Ankle 02/2006 Primary repair of inguinal hernia. Right 2006 Stent placement, Coronary Artery x 6 2006 Cardiac catheterization 2006 Prostatectomy 2005 Shave biopsy of skin 06/24/1999 Anesthetic History: Prior difficulty: _ Yes x No If yes, provider details: x Allergies and Sensitivities: NKA Current Home Meds: (Last Updated 02/08 08:00) aspirin (aspirin 81 mg oral delayed release tablet) 81 mg PO Daily atorvastatin (Lipitor 80 mg oral tablet) 80 mg PO qhs biotin 1,000 mcg PO Daily ciprofloxacin (ciprofloxacin 500 mg oral tablet) 500 mg PO q12h docusate (Colace 100 mg oral capsule) 100 mg PO bid PRN: as needed for constipation ferrous sulfate (ferrous sulfate 200 mg (65 mg elemental iron) oral tablet) 200 mg PO Daily fluoride topical (PreviDent 5000 Booster 1.1% topical paste) 100 unknown unit Responsible Provider:NEO AL 10/04 14:20 magnesium oxide (Mag-Ox 400) 400 mg PO Daily sertraline (sertraline 100 mg oral tablet) 100 mg PO Daily ubiquinone (Co-Q10 50 mg oral capsule) 50 mg PO Daily unknown medication (eye supplement) 1 tab PO Daily unknown medication (Focus Factor) 1 tab PO Daily unknown medication (Zicam) 1 tablet prn Vitals: Last Updated 02/09/24 08:15 Weights: No Weight Data Available Date Temp Pulse BP RR SpO2 FIO2 Date Wt(kg) Wt(lb) 02/08 08:15 36.5 48 108/62 16 98 24 Hr Tmax: 36.5 at 02/08 08:15 Initial Wt: No Data Available Physical Exam: Robust WM NAD Level of Consciousness/Mental Status: Awake: x Yes _ No Alert: x Yes _ No Oriented: x Yes _ No Mental Status: If No, Comment _ Airway: Indicate class, A high score (class 3 or 4) is a predictor of a more difficult intubation. The Mallampati Score _ Class 1: Complete visualization of the soft palate x Class 2: Complete visualization of the uvula _ Class 3: Visualization of only the base of the uvula _ Class 4: Soft palate is not visible at all Lungs: x Clear _ Rales _ Rhonchi _ Wheeze Heart: x Normal Sinus Rhythm _ Murmur _ Arrhythmia _ List: _ [place] Society of Anesthesia Classification: _ I. Normal healthy patient x II. Patient with mild systemic disease _ III. Severe systemic disease _ IV. Severe systemic disease which is threat to life _ V. Moribund, not expected to survive without procedure Sedation Plan: x Moderate _ Reschedule with Anesthesia 30 Day Labs: 02/09/24 0849 Estimated CrCl 47.16 02/09/24 0756 WBC 7.91 RBC 4.04 L Hgb 11.8 L Hct 34.9 L MCV 86.4 MCH 29.2 MCHC 33.8 RDW 13.3 Plts 181 MPV 9.9 BUN 22 Cret 1.23 eGFR CKD-EPI 59 L PT 13.2 INR 1.0 01/23/24 1437 Estimated CrCl 51.80 01/23/24 1347 WBC 7.30 RBC 4.03 L Hgb 11.8 L Hct 35.2 L MCV 87.3 MCH 29.3 MCHC 33.5 RDW 13.6 Plts 181 MPV 8.8 L Type of Diff: AUTO Neut% 62.2 Lymph% 22.9 [place]% 11.1 Eos% 3.0 Baso% 0.5 Neut, Abs 4.54 Lymph, Abs 1.67 [place], Abs 0.81 Eos, Abs 0.22 Baso, Abs 0.04 Immature Gran% 0.3 Immat Gran, Abs 0.02 LDH 167 HCO3 26 Glu 130 H Cret 1.12 Ca 9.0 Anion Gap 10 eGFR CKD-EPI 67 BUN 20 Na 137 K 4.8 Cl- 101 Free T3 2.8 Free T4 0.90 TSH 2.43 ACTH 38 AST 30 Alk Phos 62 T Bili 0.4 ALT 35 Alb 4.1 Prot 6.9 Assessment: h/o bladder CA, now with right-sided urinary obstruction. Pt. has ileal conduit and percutaneous access is requested for upcoming ureteroscopy. Plan: Right perc neph placement x The planned sedation has been discussed with the patient and consent obtained. I have identified the patient, determined the appropriateness of sedation, and have assessed the patient immediately prior to procedure. All medicine(s) and interventions are by my order. Electronic Signature on File Electronically Reviewed/Signed by: Cheli Villanueva MD Author Signature Dt/Tm:02/09/2024 09:58 AM Interventional Radiology LBS Anesthesia records * Services, CPDI: PERFORM Event Display: Sedation & Analgesia Record Authored Date: [id number] Patient Care team information Care Team Personnel Name: Arti Smith Kimberly Position: Pharmacist BCMA Member Role: Pharmacy - Lifetime Address: [place] [address] [place] Name: MD Mukund, Odette Position: Physician - Hem/Onc Member Role: Lifetime Relationship Address: [address] [place] [address] [place] Name: Arti Mahmood Ann Position: Pharmacist Member Role: Pharmacy - Lifetime Name: MD Jeremías, Ramesh Clark Position: Physician - Urology Member Role: Lifetime Relationship Address: [address] [place] [address] Care Team Related Persons Name: CLAYTON MOSS
--- OUTSIDE RECORDS SUMMARY | 2024-03-13 01:36 | External Medical Summary | Continuity of Care Document ---
Author Name Unknown Organization [facility] Address [address] [place] [phone] Care Team Providers Care Technology Administrator Name Role Phone Saeed Devlin Primary Care Physician [phone] Encounter [facility] [phone] Date(s): 02/20/24 - 02/20/[address] [id number] [phone] Encounter Diagnosis Bladder cancer(Discharge Diagnosis) - 02/20/24 Ureteroileal conduit stricture(Discharge Diagnosis) - 02/20/24 Infection of incontinent external stoma of urinary tract(Final) - Other postprocedural complications and disorders of genitourinary system(Final) - Surgical operation with anastomosis, bypass or graft as the cause of abnormal reaction of the patient, or of later complication, without mention of misadventure at the time of the procedure(Final) - Unspecified hydronephrosis(Final) - Malignant neoplasm of prostate(Final) - Malignant neoplasm of bladder, unspecified(Final) - Iron deficiency anemia, unspecified(Final) - Atherosclerotic heart disease of [place] coronary artery without angina pectoris (Final) - Depression, unspecified(Final) - Obstructive sleep apnea (adult) (pediatric)(Final) - Gastro-esophageal reflux disease without esophagitis(Final) - Unspecified osteoarthritis, unspecified site(Final) - Pure hypercholesterolemia, unspecified(Final) - Presence of coronary angioplasty implant and graft(Final) - Personal history of malignant melanoma of skin(Final) - Personal history of immunosuppression therapy(Final) - senior living (current) use of aspirin(Final) - Acquired absence of other genital organ(s)(Final) - Acquired absence of other parts of urinary tract(Final) - Personal history of nicotine dependence(Final) - 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) - Discharge Disposition: Home or Self Care Attending Physician: MD Ramón, Arvind Nunez Allergies, Adverse Reactions, Alerts No Known Allergies Functional Status 02/20/24 Neurological Symptoms Numbness, Tingling ADLs Independent Facial Symmetry Symmetric Gait Unable to assess Swallowing Difficulty None Level of Consciousness Neuro Alert History of Fall in Last 3 Months Mathew N o Presence of Secondary Diagnosis Mathew Ye s Use of Ambulatory Aid Mathew None/bedrest /nurse assist IV/Heparin Lock Fall Risk Mathew Yes Gait/Transferring Fall Risk Mathew Normal /bedrest/immobile Mental Status Fall Risk Mathew Oriented t o own ability Mathew Fall Risk Score 35 Mathew Fall Risk Low Risk Speech Pattern Clear 02/20/24 Hallucinations Present None Medications acetaminophen Start: 02/20/24 6:37:00 AM EST, 500 mg =, PO, q6h, PRN: as needed for pain Start Date: 02/20/24 Status: Ordered aspirin 81 mg oral delayed release tablet Start: 06/01/22 11:49:00 AM EST, 1 tab, PO, qPM Start Date: 06/01/22 Status: Ordered biotin Start: 08/14/18 9:08:00 AM EDT, 1,000 mcg =, PO, Daily Start Date: 08/14/18 Status: Ordered Co-Q10 50 mg oral capsule Start: 06/22/21 9:10:00 AM EDT, 1 cap, PO, Daily Start Date: 06/22/21 Status: Ordered Colace 100 mg oral capsule Start: 06/18/22 7:47:00 AM EDT, 1 cap, PO, bid, Disp# 60 cap, PRN: as needed for constipation, Pharmacy: [facility] Start Date: 06/18/22 Status: Ordered ferrous sulfate [...] tablet prn Start Date: 06/14/22 Status: Ordered Mental Status 02/20/24 Communication Barrier Present No Primary Language South Korean P/G/S Primary Language South Korean Problem List Condition Confirmation Course Effective Dates [...] Confirmed Active Seborrheic keratosis Confirmed Active 1father/brother Diagnosis Diagnosis Type Effective Dates Health Status Clinical Service Informant Bladder cancer Discharge Diagnosis 02/20/24 Non-Specified Ureteroileal conduit stricture Discharge Diagnosis 02/20/24 Non-Specified Procedures Procedure Date Related Diagnosis Body Site [...] skin 07/11/12 Comp leted Cataract surgery, Left 2013 Co mpleted Cataract surgery, Right 2011 C [...] curettage 5detached retina 2011 6R ; L Vital Signs Most recent to oldest [Reference Range]: 1 2 3 Height 175.26 cm (02/20/24 6:31 AM) Patient Weight 74.7 kg (02/20/24 6:31 AM) Body Mass Index 24.32 kg/m2 (02/20/24 9:00 AM) 24.32 kg/m2 (02/20/24 6:31 AM) Temperature [36.5-37.9 DegC] 36.3 DegC *LOW* (02/20/24 9:43 AM) 36.0 DegC *LOW* (02/20/24 9:30 AM) 36.0 DegC *LOW* (02/20/24 9:00 AM) Heart Rate 58 bpm (02/20/24 9:43 AM) 59 bpm (02/20/24 9:30 AM) 59 bpm (02/20/24 9:15 AM) Respiratory Rate 9 br/min (02/20/24 9:43 AM) 14 br/min (02/20/24 9:30 AM) 14 br/min (02/20/24 9:15 AM) Blood Pressure 111/54mmHg (02/20/24 9:43 AM) 117/64mmHg (02/20/24 9:30 AM) 117/64mmHg (02/20/24 9:15 AM) Mean Blood Pressure 71 mmHg (02/20/24 9:43 AM) 79 mmHg (02/20/24 9:15 AM) 76 mmHg (02/20/24 9:00 AM) Cuff Pulse Pressure 57 mmHg (02/20/24 9:43 AM) 53 mmHg (02/20/24 9:15 AM) 58 mmHg (02/20/24 9:00 AM) BP Location # 1 Left Arm (02/20/24 9:43 AM) Right Arm, Non-invasive (02/20/24 6:14 AM) Social History Social History Type Response Smoking Status Former Smoker, quit > 1 yr Sex Male Sex Representation Male (finding) Implantable Device List Procedure Provider Procedure Date Device Type Site Unknown Unknown 06/14/22 Unknown Unknown Device Identifier Serial Number Lot or Batch Number Manufacturing Date Expiration Date Distinct Identification Code MRI Safety Implantable Status Assigning Authority Unknown Unknown [id number] Unknown 08/08/26 Unknown Unknown Active Unk nown History and physical note * MD Ramón, Arvind Nunez: PERFORM Event Display: . 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 Follows with heme/onc, VOLGA trial. Last CTU Dec 2023, last CT thorax Oct 2023. Last had CTU 10/31/23 which demonstrated small filling defects in the right upper tract. Repeat CT12/28/23 continues to demonstrate this finding. [1] Presents today for rightantegrade ureteroscopy with biopsy or ablation. Review of Systems Review Of Systems: _ 14 point review of systems completed and negative except as documented in HPI. Physical Exam Vitals & Measurements T:36.8C HR:48(Monitored) BP:133/64 SpO2:97% Oxygen Therapy:Room Air HT:175.26cm WT:74.7kg WT:74.700kg(Dosing) BMI:24.32 General:Alert, Oriented, Well developed, Well-nourished. Airway: Mouth: Within normal limits. Teeth: Denies loose/broken teeth. Head:Normocephalic. Neck:Supple, Good extension, Good flexion. Trachea:Midline. Respiratory:symmetric and non labored respiratioins bilaterally. Cardiovascular: Heart: RRR. Edema: None. Gastrointestinal:Soft,Non-tender. Musculoskeletal:Normal strength. Neurologic:Normal sensory, Normal motor, No focal deficits. Diagnostic Results (12/28/2023 09:[address] Urogram) CT Urogram EXAMINATION: CT Urogram CLINICAL HISTORY: C67.9: Malignant neoplasm of bladder, unspecified; evaluate right kidney filling defect COMPARISON: 10/31/2023 TECHNIQUE: Unenhanced and contrast-enhanced CT of the abdomen and pelvis. CONTRAST: Contrast Type (IV): Omnipaque 350 Contrast Volume (IV) in ml: 100.00 Contrast Type (Oral): Contrast Volume (Oral) in ml: DOSE: Total Reported Dose Length Product (DLP) = 1345.84 mGy.cm FINDINGS: Lower chest: Normal ABDOMEN Liver, Gallbladder \\T\\ bile ducts: Normal liver. Cholelithiasis. No pericholecystic fluid or gallbladder wall thickening. Pancreas: Normal Spleen: Normal Adrenals: Normal Kidneys, collecting system and ureters: Symmetric enhancement of both kidneys. Simple cyst left kidney is unchanged. No renal masses. Chronic right hydronephrosis with pooling of contrast in the right renal pelvis. There is no delayed enhancement of the right ureter. Normal left collecting system. The ileal loop is normal without evidence of filling defects. Retroperitoneum, lymph nodes, and vessels: Normal caliber aorta. Mesenteric vasculature enhances normally. No lymphadenopathy. Bowel \\T\\ Mesentery: Diverticulosis. Normal appendix. No free fluid in the pelvis. Ileal anastomosis is unchanged. Stable incisional hernia just to the left of the umbilicus. PELVIS Bladder: Absent Reproductive organs: Prostatectomy Extraperitoneal, lymph nodes, vessels: Normal Osseous and body wall: Bilateral hip arthroplasties with stable spondylotic changes of the lumbar spine. Stable compression deformity at the thoracolumbar junction. IMPRESSION: No change. No evidence of recurrent renal cell carcinoma. There is a small filling defect in the right renal pelvis arising from the anterior wall which most likely represents scar or fibrous tissue.No change. [2] Assessment/Plan 78 yo male with suspected right upper tract recurrence of his UC. For antegrade ureteroscopy with biopsy today. Consent signed. Problem List/Past Medical History Ongoing ACTINIC KERATOSIS Arthritis Benign neoplasm of skin Benign nevus Bladder cancer Bladder control Depressive disorder Encounter for immunotherapy FHx: melanoma Gastroesophageal reflux disease High cholesterol Melanoma in situ Seborrheic keratosis Procedure/Surgical History Carpal tunnel| Service Date: 11/11/2022open radical cystectomy, b/l PNLD, ileal conduit| Service Date: 06/14/2022hemotherapy| Service Date: 01/2019Colonoscopy| Service Date: 01/2019Shave biopsy and cauterization of skin| Service Date: 02/03/2015Excision of melanoma| Service Date: 08/14/2014Shave biopsy and cauterization of skin| Service Date: 07/31/2014Resection, Bladder|Service Date: 09/18/2013Shave biopsy of skin| Service Date: 07/11/2012Cataract surgery, Left|Service Date: 2012Cataract surgery, Right| Service Date: 2011Right Eye Vitrectomy x 2 - Detached Retina| Service Date: ladder Surgery 1 stent| Service Date: 07/2008ORIF - Open reduction and internal fixation of fracture,Right Ankle| Service Date: 02/2006Cardiac catheterization| Service Date: 2005Stent placement, Coronary Artery x 6| Service Date: 2005Primary repair of inguinal hernia. Right| Service Date: 2005Prostatectomy| Service Date: 2004Shave biopsy of skin|Service Date: 06/24/1999Bladder biopsy sampleCHEMO PROLONG INFUSE W/PUMPHip replacement bilateralExtraction of wisdom tooth Medications Inpatient acetaminophen(Tylenol), 1000 mg= 2 tab, PO, q8h ciprofloxacin(Cipro), 400 mg= 200 mL, IV, To OR fentaNYL, 50 mcg, IV Push, q3min, PRN HYDROmorphone(Dilaudid), 0.25 mg= 0.25 mL, IV Push, ONCE, PRN lidocaine topical(LMX 4 topical cream), 1 appl, topical, Pre Event, PRN ondansetron, 4 mg= 2 mL, IV Push, q6h, PRN Home acetaminophen, 500 mg, PO, q6h, PRN aspirin(aspirin 81 mg oral delayed release tablet), 81 mg= 1 tab, PO, qPM atorvastatin(Lipitor 80 mg oral tablet), 80 mg= 1 tab, PO, qhs biotin, 1000 mcg, PO, Daily chondroitin-glucosamine(Osteo Bi-Flex), PO, Daily ciprofloxacin(ciprofloxacin 500 mg oral tablet), 500 mg= 1 tab, PO, q12h docusate(Colace 100 mg oral capsule), 100 mg= 1 cap, PO, bid, PRN ferrous sulfate(ferrous sulfate 200 mg (65 mg elemental iron) oral tablet), 200 mg= 1 tab, PO, Daily fluoride topical(PreviDent 5000 Booster 1.1% topical paste), 1 appl, topical, qhs magnesium oxide(Mag-Ox 400), 400 mg, PO, Daily multivitamin with minerals(Ocuvite), 1 tab, PO, Daily sertraline(sertraline 100 mg oral tablet), 100 mg= 1 tab, PO, qPM ubiquinone(Co-Q10 50 mg oral capsule), 50 mg= 1 cap, PO, Daily unknown medication(Focus Factor), 1 tab, PO, Daily unknown medication(Zicam) Allergies NKA Social History Smoking Status Former Smoker, quit > 1 yr [1]Surgery Office Visit Note; MD Leroy Robert 01/05/2024 09:31 EDT [2]CT Urogram; MD Durham Seth Millard 12/28/2023 09:07 EDT Electronic Signature on File Electronically Reviewed/Signed by: Arvind Melgar MD Author Signature Dt/Tm:02/20/2024 07:23 AM Department of Urology [facility] * AUBREY Villela Anita M: MODIFY, MODIFY, MODIFY, MODIFY, MODIFY MD Lynch Anjan: MODIFY, PERFORM MD Lynch Anjan: PERFORM, SIGN MD Lynch Anjan: SIGN, VERIFY MD Lynch Anjan: VERIFY Event Display: Anes H&P Authored Date: Patient: BILL MOSS Age: 78 years Sex: Male : 1945 Associated Diagnoses: None Author: MD Lynch Anjan Preoperative Information Origination of H&P: Telehealth. Pre-Operative Diagnosis: Urethral cancer . Anesthiesia Preop Info: Procedure: Right antegrade nephrostogram, right antegrade ureteroscopy, possible biopsy, possible ablation Date: 02/20/24 07:30 Surgeons: MD Ramón, Arvind Nunez Diagnosis: UROTHELIAL CARCINOMA . Reference Report Created By: 02/17/2024 14:18:00, AUBREY Villela, Sabi Thrasher, By Chart review. History of Present Illness 78 yo M a h/o prostate cancer s/p prostatectomy, MIBC s/p RC/IC (May 2022). He is now scheduled for above Best phone number to contact patient: [phone] COVID vaccine completed + booster (most recent Fall 2023) Anesthesia History PONV: Denies. History of Motion Sickness: Denies. Patient Complications: Negative. Family History of Anesthesia Problems: Negative. Functional Capacity 4-6 METS = Moderate: Able to walk briskly (4 mph), Able to climb 1 flight of stairs at regular pacewithout stopping, bikes 20 miles twice a week . Symptoms: Denies SOB/CP. Medical History Cardiovascular: F/b Cardiology from different facility ([facility]), See studies or note below. CAD: Cardiac Intervention ( s/p 6 stents in RCA "full metal jacket" in 2005. Rx ASA 81mg., 09/09/22 [facility] Echo: EF 65-70%, Gr II diastolic dysfunction ). Medical Devices: R. nephrostomy tube . Pulmonary: Obstructive Sleep Apnea: Uses CPAP, Good compliance. Hematologic: Anemia: Iron deficiency, On iron supplement, Last H/H 11.8/34.9 on 02/09/24. 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 He had a recurrence in 2016, at that time he had TURBT followed by intravesical mitomycin C monthly. S/p open radical cystectomy, b/l PLND, ileal conduit - 06/14/22 On clinical trial [place] [phone] [triplet in safety run; Neoadjuvant- Durva C1D1 1500mg every 3 weeksx 3 cycles (start date 03/08/22) then Sx and then adj Q4 weeks; Trem C1D1 75mg on 03/08/22 then C2D8; EV 1.25mg/kg Days 1, 8 every 3 weeks x 3 cycles (start date 03/08/22) , then Sx and then adjuvantRx Durva Q4 weekly x 9 cycles; Trem x 1 . Last tx 04/18/23 skin cancers including melanoma left forearm. BMI 26 on 01/05/24 Orthopedics: S/P: Left MIGUEL, Right MIGUEL. Airway note 06/17 (cystectomy): MP2, full extension, easy mask, MAC 3, gr 2, 7.5 ETT at 22 cm. Medical History Past medical history obtained and reviewed from Anesthesia Telehealth Evaluation Note. Any significant changes are noted below: Yes. Health Status Allergies: Allergic Reactions (Selected) NKA. Medications: Medication List (Selected) Prescriptions Prescribed Colace 100 mg oral capsule: 1 cap, PO, bid, PRN: as needed for constipation, 60 cap ciprofloxacin 500 mg oral tablet: 1 tab, PO, q12h, for 7 day, 14 tab, 0 Refill(s) Documented Medications Documented Co-Q10 50 mg oral capsule: 1 cap, PO, Daily Focus Factor: 1 tab, PO, Daily Lipitor 80 mg oral tablet: 1 tab, PO, qhs Mag-Ox 400: 400 mg, PO, Daily Ocuvite: 1 tab, PO, Daily Osteo Bi-Flex: PO, Daily PreviDent 5000 Booster 1.1% topical paste: 1 appl, topical, qhs Zicam: 1 tablet prn aspirin 81 mg oral delayed release tablet: 1 tab, PO, qPM biotin: 1,000 mcg, PO, Daily ferrous sulfate 200 mg (65 mg elemental iron) oral tablet: 1 tab, PO, Daily sertraline 100 mg oral tablet: 1 tab, PO, qPM. Histories Procedure History: Carpal tunnel ([id number]) on 11/11/2022 at 77 Years. Comments: 12/02/2022 11:30 CHRISTIANA Crockett MA, Karen surgery open radical cystectomy, b/l PNLD, ileal conduit ([id number]) on 06/14/2022 at 77 Years. Colonoscopy ([id number]) in the month of 01/2019 at 73 Years. Chemotherapy ([id number]) in the month of 01/2019 at 73 Years. Comments: 08/14/2019 08:31 CHRISTIANA Preciado LPN, Henna bladder Shave biopsy and cauterization of skin ([id number]) on 02/03/2015 at 69 Years. Comments: 02/03/2015 11:12 SHUKRI Carranza RN, Deana Epstein with curettage Excision of melanoma ([id number]) on 08/14/2014 at 69 Years. Shave biopsy and cauterization of skin ([id number]) on 07/31/2014 at 69 Years. Comments: 07/31/2014 14:33 EDT - HOWARD Carranza, Deana Epstein with curettage Resection, Bladder ([id number]) on 09/18/2013 at 68 Years. Shave biopsy of skin ([id number]) on 07/11/2012 at 67 Years. Cataract surgery, Left ([id number]) in 2012 at 67 Years. Right Eye Vitrectomy x 2 - Detached Retina in 2011 at 66 Years. Comments: 07/11/2012 08:41 EDT - Eugenia Gandhi detached retina 2012 Cataract surgery, Right ([id number]) in 2011 at 66 Years. Bladder Surgery 1 stent ([id number]) in the month of 07/2008 at 63 Years. ORIF - Open reduction and internal fixation of fracture,Right Ankle ([id number]) in the month of 02/2006 at 60 Years. Primary repair of inguinal hernia. Right ([id number]) in 2005 at 60 Years. Stent placement, Coronary Artery x 6 ([id number]) in 2005 at 60 Years. Cardiac catheterization ([id number]) in 2005 at 60 Years. Prostatectomy ([id number]) in 2004 at 59 Years. Shave biopsy of skin ([id number]) on 06/24/1999 at 54 Years. Bladder biopsy sample ([id number]). CHEMO PROLONG INFUSE W/PUMP ([id number]). Hip replacement bilateral ([id number]). Comments: 10/18/2022 08:27 ORESTEST Delfin Casper LPN, Rhonda R ; Camilla Extraction of wisdom tooth ([id number]).. Social History: Cigarrette Smoker? Other Tobacco Use: Alcohol: Recreational Drugs: . Physical Examination VS/Measurements: Vital Signs 02/20/2024 06:14 EST Temperature 36.8 DegC Temperature Route Temporal Heart Rate 48 bpm Systolic Blood Pressure 133 mmHg Diastolic Blood Pressure 64 mmHg BP Location # 1 Right Arm, Non-invasive BP Cuff Size Regular Mean Blood Pressure 78 mmHg Cuff Pulse Pressure 69 mmHg Oxygen Therapy Room Air SpO2 97 % . Airway: Mallampati classification: II (soft palate, fauces, uvula visible). Mouth: Adequate opening, Teeth ( Within normal limits ). Head: Normocephalic. Neck: Supple. Respiratory: Lungs are clear to auscultation. Cardiovascular: Normal rate. Anesthesiologist Assessment and Plan Problems: No active cardiac conditions. ASA Classification: Class III. Anesthetic Plan: Premedication: None. Anesthetic technique discussed: General anesthesia. Risks discussed: Nausea-vomiting, Headache, Sore throat, Dental injury, Eye injury, Allergic reaction, Serious complications. Informed consent: Signed by patient. History, Physical Exam, Assessment and Plan Completed: 02/20/2024 07:22:00, MD Syed, Maximiliano. Review / Management EKG: EKG was not ordered due to telehealth visit; EKG can be ordered at discretion of anesthesia team on the day of procedure. Diagnostics: 04/26/23 [facility] note Echo TransTHORacic TTE Complete w/ Cont 09/09/22 Summary 1. Normal left ventricular size and systolic function with no regional wall motion abnormalities. 2. Estimated ejection fraction 65-70%. 3. Grade II diastolic dysfunction of the left ventricle (pseudonormal filling pattern). 4. Right ventricular dilation with normal function. 5. Biatrial enlargement. 6. No significant valvular abnormalities. 7. Insufficient data for estimation of pulmonary artery systolic pressures. 8. No prior studies for comparison.. Electronic Signature on File Electronically Reviewed/Signed by: Maximiliano Lynch MD Author Signature Dt/Tm:02/20/2024 07:51 AM Department of Anesthesia AT Surgical operation note * MD Andrade Joseph: PERFORM Event Display: .Operative Report Authored Date: [id number] OPERATIVE REPORT Name: BILL MOSS Patient Number: [id number] : 1945 Date of Service: 02/20/2024 SURGEON: Dr. Delon Melgar HEEL SORTER(s): Dr. Hardy Andrade PREOPERATIVE DIAGNOSIS: History of bladder cancer with abnormal CT scan POSTOPERATIVE DIAGNOSIS: Right ureteroenteric anastomotic stricture OPERATION PERFORMED: 1. Diagnostic right ureteroscopy 2. Dilation of right ureteroenteric anastomotic stricture 3. Exchange of right nephrostomy tube for reverse nephroureteral drain (8 Filipino by 45 cm) 4. Antegrade nephrostogram with radiographic interpretation ANESTHESIA: General COMPLICATIONS: None apparent SPECIMENS: None ESTIMATED BLOOD LOSS: Minimal INDICATIONS: 78-year-old gentleman with a history of prostate cancer status post prostatectomy and muscle-invasive bladder cancer status post radical cystectomy with ileal conduit May 2022 found tohave a small filling defect on CTU 12/28/2023 as well as right-sided hydroureteronephrosis with declining renal function for the past 8 months. Presents for endoscopic evaluation FINDINGS: 1. Nephrostogram noted right-sided hydronephrosis with no filling defects 2. Portillo pyeloscopy showed no concerning areas of malignancy with expected nephrostomy tube inflammation in the renal pelvis 3. Approximately 6-8 Filipino soft right ureteroenteric anastomotic stricture dilated to 10 Filipino OPERATION: Preoperative consent was obtained in the holding area. Patient was transported to the operating room pause identified by surgical staff. He was placed in operative table and general anesthesia was induced. He was prepped and draped in standard sterile fashion and a right bump position. Perioperative antibiotics were given. Antegrade nephrostogram was performed with the above findings of no filling defects. Sensor wire was advanced through the drain into the renal pelvis and the drain was removed. A 10 Filipino dual-lumencatheter was advanced over the wire into the renal pelvis and a second wire was advanced down the ureter to the level of the ureteroenteric anastomosis. The wires were then manipulated such that a safety wire within the ureter was secured. We then advanced the 7 Filipino flexible ureteroscope over the working wire into the distal ureter. The anastomosis was able to accommodate the wire but was unable to accommodate the 7 Filipino scope. Wethen proceeded with our diagnostic ureteroscopy noting no significant areas of disease recurrence. Our wires were then rearranged such that we had through and through access from the back out the urostomy. The 10 Filipino dual-lumen catheter was utilized to dilate the ureteroenteric anastomotic stricture in an antegrade fashion. After rearranging her wires we then had a sensor wire remaining as our only wire in the renal pelvis. A retrograde pyelogram was performed demonstrating no extravasationfrom the urinary system. And 8 Filipino by 45 cm reverse nephroureteral drain was advanced into the renal pelvis under live fluoroscopy. Curl was obtained and the drain was locked. The flank site was covered with a bandage and a new urostomy appliance was applied. We will leave the drain for period of time while we monitor his renal function for improvement. If renal function significantly improves then we will decide whether to remove the drain for a trial period versus continuing with chronic drain exchanges. Electronic Signature on File Electronically Reviewed/Signed by: Hardy Andrade MD Author Signature Dt/Tm:02/20/2024 09:28 AM Resident Division of General Surgery Electronically Reviewed/Signed by: Arvind Melgar MD Cosigner Signature Dt/Tm: 02/21/2024 12:28 AM Department of Urology JS Discharge instructions * MD Andrade Joseph: PERFORM Event Display: Patient Discharge Instructions Authored Date: [id number] BILL MOSS :1945 Visit Date:02/20/[address] [facility] For medical concerns, call: . Date of Admission:02/20/2024 Date of Discharge:02/20/2024 Physician:MD Ramón, Arvind Nunez Service:Urology Discharge Disposition: . Advance Directive:Living will, Health Care Power of Wound/Ostomy Clinical Nurse Specialist Reason for Hospitalization Bladder cancer Your Diagnoses Bladder cancer Ureteroileal conduit stricture My [employer] Patient Portal: [employer] makes it easy for you to manage your health information online. [employer] is a free service that provides you instant, secure access to your medical information anytime, anywhere. Sign in or set up your account today at [email or web address] Thank you for allowing us to assist you with your healthcare needs. If you need additional community resources, [place] [facility] can help at https://www.pa211.org. 211 can assist you in connecting with social programs based on your unique needs and locations. 211 is an anonymous search that can help you locate resources for: Food, Housing, Transportation, Goods, Education and Healthcare. Medications What How Much When Instructions Next Dose Unchanged acetaminophen 500 Milligram by mouth Every 6 hours as needed for as needed for pain Unchanged aspirin (aspirin 81 mg oral delayed release tablet) 1 tab(s) by mouth Every evening Unchanged atorvastatin (Lipitor 80 mg oral tablet) 1 tab(s) by mouth At bedtime Unchanged biotin 1,000 Microgram by mouth Once daily Unchanged chondroitin-glucosamine (Osteo Bi-Flex) by mouth Once daily Unchanged docusate (Colace 100 mg oral capsule) 1 cap by mouth 2 times daily as needed for as needed for constipation Unchanged ferrous sulfate (ferrous sulfate 200 mg (65 mg elemental iron) oral tablet) 1 tab(s) by mouth Once daily Unchanged fluoride topical (PreviDent 5000 Booster 1.1% topical paste) 1 becca topically At bedtime Unchanged magnesium oxide (Mag-Ox 400) 400 Milligram by mouth Once daily Unchanged multivitamin with minerals (Ocuvite) 1 tab(s) by mouth Once daily Unchanged sertraline (sertraline 100 mg oral tablet) 1 tab(s) by mouth Every evening Unchanged ubiquinone (Co-Q10 50 mg oral capsule) 1 cap by mouth Once daily Unchanged unknown medication (Focus Factor) 1 tab(s) by mouth Once daily Unchanged unknown medication (Zicam) 1 tablet prn What How Much When Comments Stop Taking ciprofloxacin (ciprofloxacin 500 mg oral tablet) 1 tab(s) by mouth Every 12 hours Duration: 7 Days Allergies NKA What to do next Instructions From Your Doctor UROLOGY CYSTOSCOPY POST-OP INSTRUCTIONS PROCEDURE: Right Ureteroscopy, diagnostic ADDITIONAL PROCEDURES: Exchange of right nephrostomy tube for reverse nephroureteral drain ACTIVITY: Resume regular activity as tolerated DIET: Resume your regular diet. Drink plenty of fluids to stay well-hydrated. ANTICOAGULATION: Resume home medications as above STENT/CATHETER PLAN: The ureteral stent will remain in place until your next procedure/clinic visit PATIENT EDUCATION: If you have a ureteral stent or Medrano catheter in place,it is normal to seesome blood in the urine, especially with increased activity.Staying well- hydrated willhelp improve blood in the urine.If you notice persistent blood clots in the urine or the catheter stops draining urine, call immediately. CALL IF: Fever greater than 100.4 F, intractable nausea or vomiting, or bleeding more than what is to be expected Catheter or stent dislodged Catheter clogged or not draining Increasing or uncontrolled pain Lightheadedness For non-emergent questions, you may call the Urology Office at during weekdays, between the hours of 8 AM to 4 PM Forurgenturologic problems that require immediate attention, you may call the hospital operatorat and ask to speak with the Urology resident on-call If you are unable to contact your physician and you feel it is an emergency, call 911 or go to the nearest Emergency Room Foremergent or very serious health-related issues, such as chest pain, shortness of breath, or sudden onset of the symptoms that brought you to the hospital, call 911 or go to the nearest EmergencyRoom FOLLOW UP: Your next clinic visit is scheduled as below Please stop by the lab prior to your visit for blood work OUR ADDRESS IS: [facility] [address] (3rd Floor) [address] [place] [address] If you notice the following symptoms Contact the [facility] Careline at . If unable to contact your physician and you feel it is an emergency, go to the nearest Emergency Room or call 911 Diet Instructions Activity Instructions Follow-Up Appointments Scheduled Follow-Up Appointments Date/Time:Provider/Resource: Feb 10:50 MD Bimal, Arvind Nunez Location/Instructions:[facility], [address], [address]tr[address], [address], [place] [address] Date/Time:Provider/Resource: Mar 11:15 [facility] CT Rm 2 Location/Instructions:1. Please arrive 20 minutes prior to your exam2. If patient is allergic to contrast/dye, a pre med needs to be prescribed unless specifically ordered WITHOUT IV CONTRAST.3. Donot eat 4 hours before the exam. You are encouraged to have clear liquids before and after your exam. Please take any medications as prescribed.4. Certain CTs requiring injection may require thatlabs be drawn prior to the study. Although a rare occurrence, it may require you to wait for those results before the scan is completed. Date/Time:Provider/Resource: Mar 11:35 [facility] CT Rm 2 Location/Instructions:[facility], [address] [place] [address], [place] [address]. Take the Radiology Elevators to the Ground floor. Check in at the Radiology Desk, Ground Floor Main [facility] Room #[id number]. This appointment time has been reserved for your imaging test, if you need to cancel or reschedule your visit call [phone] option 2. Date/Time:Provider/Resource: Mar 01:00 pmLab/Specimen Location/Instructions:[facility], [address], 1st floor, [address], [place] [address] Date/Time:Provider/Resource: Mar 01:45 MD Lombardi Monika Location/Instructions:[facility], [address], 1st floor, [address], [facility] [address] Date/Time:Provider/Resource: Apr 11:15 MD Ricardo, Sha Epstein Location/Instructions:[facility], [address], [address], [place] [address] The Following Services Have Been Arranged for You No Post-Acute Placement(s) Listed No Post-Acute Service(s) Listed Tests Pending None Procedures Performed right ureteroscopy, reverse nephroureteral drain placement 02/20/2024 Special Instructions Common Emergency Awareness Tips Call 911 immediately if: experiencing any of the warning signs and symptoms of stroke: B.E. F.A.S.T. Balance: is there trouble with walking or coordination Eyes: is there double vision or visual loss Face: Smile, do both sides of face move equally Arm: Raise arms, do both arms move equally Speech: Is speech slurred or inappropriate Time: Time is critical, call 911 immediately Heart Attack Signs Chest discomfort: Most heart attacks involve discomfort in the center of the chest and lasts more than a few minutes, or goes away and comes back. It can feel like uncomfortable pressure, squeezing, fullness or pain. Discomfort in upper body: Symptoms can include pain or discomfort in one or both arms, back, neck, jaw or stomach. Shortness of breath: With or without discomfort. Other signs: Breaking out in a cold sweat, nausea, or lightheaded. Remember, MINUTES DO MATTER. If you experience any of these heart attack warning signs, call to get immediate medical attention! Note * Yola Springer: PERFORM Event Display: Brief Operative Note Authored Date: [id number] BRIEF OPERATIVE NOTE Name: BILL MOSS Patient Number: [id number] : 1945 Date of Service: 02/20/2024 Pre-op Diagnosis: history of urothelial carcinoma Post-op Diagnosis: same Procedure: R diagnostic ureteroscopy, exchange of R nephrostomy tube for R reverse nephroureteral drain Surgeon: Dr. Melgar Assistants: Yola Schaffer MS3 Anesthesia: general Estimated Blood Loss: minimal X Less than 50ml Drains: 8 Fr, 45cm drain Fluids: IVF 600mL Urinary Output: on the field Condition: stable Complications: none Specimen: _ X None Findings: No evidence of disease. Check one X Pharmacologic VTE prophylaxis not indicated _ Standard VTE prophylactic regimen ordered _ Pharmacologic VTE prophylaxis contraindicated due to increased risk of intraoperative and / or postoperative bleeding Check one _ No antibiotics indicated X Standard prophylactic antibiotic regimen ordered _ Antibiotic regimen changed due to concern for infection Electronic Signature on File Electronically Reviewed/Signed by: Yola Springer Author Signature Dt/Tm:02/20/2024 09:19 AM Medical Student Electronically Reviewed/Signed by: Hardy Andrade MD Cosigner Signature Dt/Tm: 02/20/2024 09:28 AM Resident Division of General Surgery DG Patient Care team information Care Team Personnel Name: Arti Smith Kimberly Position: Pharmacist BCMA Member Role: Pharmacy - Lifetime Address: [place] [address] [place] Name: MD Duval Monika Position: Physician - Hem/Onc Member Role: Lifetime Relationship Address: [address] [place] [address] [place] Name: Arti Mahmood Ann Position: Pharmacist Member Role: Pharmacy - Lifetime Name: MD Veronica Jay D Position: Physician - Urology Member Role: Lifetime Relationship Address: [address] [place] [address] [place] [address] [place] Care Team Related Persons Name: CLAYTON MOSS
--- OUTSIDE RECORDS SUMMARY | 2024-03-13 01:36 | External Medical Summary | Continuity of Care Document ---
Author Name Unknown Organization [facility] Address [address] [place] [address] CLARA VINCENT [id number] Care Team Providers Care Arabic Teacher Name Role Phone Saeed Devlin Primary Care Physician [id number] Encounter [facility] [id number] Date(s): 01/23/24 - 01/23/24 [facility] [id number], [place] [id number]- [phone] Encounter Diagnosis Bladder cancer(Discharge Diagnosis) - 01/23/24 Discharge Disposition: Home or Self Care Attending Physician: MD Duval Monika Referring Physician: DO Devlin Jason M Allergies, Adverse Reactions, Alerts No Known Allergies Assessment and Plan Extracted from: Title:Oncology Office Visit Note Author:Anna Marie Duval Monika Date:01/23/24 This is a pleasant 78-year-old gentleman with 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 This appears to be predominantly urothelial cancer. We discussed to do staging imaging to confirm his T2 N0 M0-stage II disease. His CT showed mild hydronephrosis. No distant metastases. We discussed various options including neoadjuvant chemotherapy followed by surgery versus bladder preservation approach-enrollment on NCTN trials versus enrollment on clinical study- VOLGA. VOLGA is randomizing patients into 3 arms 1:1:1, Enfortumab Vedotin + Treme plus durvalumab vs. surgery He is considered cisplatin ineligible given bilateral deafness- as he is using b/l hearing aids. He was interested in non-cisplatin approach. We consented him for VOLGA; we reviewed the tests for his screening and eligibility. He is eligible; He was randomized to D+EV+T arm C1D1 EV+T+D 03/08/22; re-consented him on 03/08/22 as well. C1D8 03/15/22. C2D1 D+EV 04/01/22. C2D8 T+ EV 04/08/22, C3D1 04/22/22; C3D8 04/29/22. Tolerating Rx well. Gr 1 rash - likely from Trem+ Durva; mostly resolved. Conservative Mx- triamcinolone topical Rx. Gr 1 loose stools for couple of days post C1D8 infusion- unclear cause- monitor. No recurrence- resolved. F/u as planned. Labs reviewed with him. No concerning toxicities. He had CT in May 2022 and got surgery on 06/14/22. Pathologically he was pT3b pN0 (). CT 07/28/22 showspost op changes. So per protocol he had significant residualds and upstaging upon surgery. We reviewed his CT with GUT team and the consensus was post op changes; no concerns for disease. We should be OK to move forward with adjuvant Rx - d/w him pros and cons- started C1D1 09/06/22. He was agreeable. He continues that. His last Rx wason 04/18/23. CT CAP reviewed from 11/2022- ongoing clinical CR. CT CAP 02/24/23- to me it appears ongoing CR. The small lung nodule appeared benign and will follow up. Rad core agreed with us.F/u CT CAP 05/19/23: no signs of PD; we got core lab to review, Non specific finding.F/u CT CAP in07/2023 and in 10/2023 no concerns for PD. He has had appts cancelled a couple of times- d/w him about imp of follow ups. We will need to see him on 01-23-24 with imaging and labs. In the past-he had c/o some on and off low gr fevers and he had takenprednisone course by his PCP.We were not aware of this. These seem to be not related to Rx; Later CT showed concern for abscess/pelvic infection. He was admitted 09/08/2022-09/12/2022 forpelvic abscess fluid collectionconservatively; he followed up with Dr Melgar's office on 09/21/2022 and consistent with a lymphocele. He did get IV Abx at that time. His symptoms resolved. This was not thought to be related to immunotherapy or previous treatment on study. H/o Gr 1 AST/ALT elevation- not related to Rx; Resolved. monitor TSH T3/T4 nl Grade 1 lipase elevation-could be fromdurvalumab. it was nl on 01/27/23 but again high- so intermittent. Asymptomatic, continue to monitor on as needed basis; it normalized Dr. Melgar is going to look at rt upper tract- neph tube on 02-09-24 and then upper tract exam on 02-20-24. CT CAP 01-23-24 -no new changes; mild post Sx changes- hydro +; will see what upper tract exam shows. Our trial CRC, RN met with him and we went over the Rx plan.Discussed all CT report. So far it was not showing PD.We had updated about AEs from the drug. per recent IB- re-consented. I personally updated about recent IB changes. Gr 1 Peripheral neuropathy-hands; baseline; not related to Rx. He is on Gabapentin Carpel Tunnel syndrome - Carpel tunnel surgery on 11/11/22. Rt hand Sx on 04/21/23. It is not related to Rx or cancer. It isan incidental finding and not related to EVor Durva Constipation- PRN laxatives. Not related to Rx. mostly resolved Incisional hernia- f/u urology. Not experiencing any obstructive symptomsandnoincarcerationor strangulation. Continue to observe and will be referred to [facility] ifbecomes symptomatic. PLAN: 1. S/p Rx on VOLGA Study: C1D1 Rx on VOLGA- EV+Durva+Treme started on 03/08/22. C1D8 03/15/22- C3D1 04/01/22, C2D8 04/08/22, C3D1 04/22/22, C3D8 04/29/22. Adjuvant C1D1 09/06/22; C9D1 Durva alone 04/18/23;- thiswas hislast cycle Last Rx C9D1 on 04/18/23- LAST Rx 04/18/23- CT in CR; upon f.u CT CAP 09/06/22- no major concerns except abscess/ lymphocele+/- infection. Rx appropriately. NO drainage was needed upon further d/w radiology Fevers resolved post Rx with abx CTA/P 09/21/22- improvement; CT CAP 12/02/22- clinical CR. CT CAP 02/24/23- CR; small lung nodule seems benign- monitor. CT CAP 05/19/23, 07/2023 and 10/31/23: CR; non specific findings F/u CT CAPDec 2023- no new changes. Upper tract exam on 02-20-24 for ?filling defect Cytology pending from 01-23-24; previous 11-24-23 was negative -Carpel tunnel surgery on 11/11/22- left hand; Rt hand surgery on 04/21/23 -Grade 1 peripheral neuropathy not related to his recent treatment-we restarted his gabapentin as he had stopped it. Continue to monitor -Dizziness in the past- off and on- same 2. CBCd CMP and other labs per protocol. Looks stable and wnl for him. 3. D/w him about S/e and benefits- closely monitor. He signed updated amendment consent in the past and updated the new IB information. He has not been having any AEs and his last infusion was in Mar 2023 4. Follow up per protocol; f/u PCP 5. He was f/u urology as planned. 6. H/o recent COVID- recovered. Not related to Rx or cancer- we had captured it in our database 7. H/o abdominal Hernia- No interventions needed; will follow We will continue to update his PCP locally. (Please note,we are using [email or web address] speech recognition software to dictate in our EMR. Unfortunately it leads to occasional typographical errors.) Summary: Doing well. CR per imaging. F/u CT on 01-23-24- report says the same He was updated about the IB issues. Cytology 01-23-24 pending Upper tract exam on 02-20-24 for ?filling defect Follow up in Mar 2023 Clinical trial RN, Ms. Triana also met with him. I spent 45__ mins discussing H+P; reviewing labs, imaging and documentation. Majority of my time was spent discussing results of his lab work and imaging and our proposed management plan. Activities include: _x review of the medical record _x obtaining a history _x physical exam/evaluation _x counseling/educating patient/family/caregiver x_ discussion/referral to other healthcare professional x_ documenting care in the medical record _x independent interpretation of results _x communication of results to patient/family/caregiver _x coordination of care Odette Duval md Medications aspirin 81 mg oral delayed release tablet Start: 06/01/22 11:49:00 AM EST, 1 tab, PO, Daily Start Date: 06/01/22 Status: Ordered biotin Start: 08/14/18 9:08:00 AM EDT, 1,000 mcg =, PO, Daily Start Date: 08/14/18 Status: Ordered ciprofloxacin 500 mg oral tablet Start: 11/24/23 3:31:00 PM EDT, 1 tab, PO, q12h, Disp# 14 tab, Refills: 0, Pharmacy: [facility] Start Date: 11/24/23 Stop Date: 12/01/23 Status: Ordered Co-Q10 50 mg oral capsule Start: 06/22/21 9:10:00 AM EDT, 1 cap, PO, Daily Start Date: 06/22/21 Status: Ordered Colace 100 mg oral capsule Start: 06/18/22 7:47:00 AM EDT, 1 cap, PO, bid, Disp# 60 cap, PRN: as needed for constipation, Pharmacy: [facility] Start Date: 06/18/22 Status: Ordered eye supplement [...] Start Date: 06/14/22 Status: Ordered Mental Status 01/23/24 Barriers to Learning one year None evide nt Mandatory Health Literacy Documentation Yes Communication Barrier Present No Health Literacy Communication Barriers N ever Primary Language Yi Problem List Condition Confirmation Course Effective Dates [...] Diagnosis Diagnosis Type Effective Dates Health Status Cl inical Service Informant Bladder cancer Discharge Diagnosis 01/23/24 Non-Specified Procedures Procedure Date Related Diagnosis Body [...] ; L Results Laboratory List Name Date ACTH 01/23/24 Complete Blood Count w Differential (CBC ,DIFFH) 01/23/24 Comprehensive Metabolic Panel (COMP META B PANEL) 01/23/24 Free T3 (T3, FREE) 01/23/24 Lactate Dehydrogenase (LD) 01/23/24 T4, Free (T4, FREE) 01/23/24 Thyroid Stimulating Hormone (TSH) Most recent to oldest [Reference Range]: 1 eGFR CKD-EPI [>60 mL/min/1.73 m2] 67 mL/ min/1.73 m2 (01/23/24 1:47 PM) Estimated CrCl 51.80 mL/min (01/23/24 2:37 PM) MPV [9.0-12.2 fL] 8.8 fL *LOW* (01/23/24 1:47 PM) Immature Gran% 0.3 % (01/23/24 1:47 PM) Neut% 62.2 % (01/23/24 1:47 PM) Lymph% 22.9 % (01/23/24 1:47 PM) [place]% 11.1 % (01/23/24 1:47 PM) Baso% 0.5 % (01/23/24 1:47 PM) Eos% 3.0 % (01/23/24 1:47 PM) Immat Gran, Abs [0-0.4 K/uL] 0.02 K/uL (01/23/24 1:47 PM) Neut, Abs [2.0-7.7 K/uL] 4.54 K/uL (01/23/24 1:47 PM) Lymph, Abs [1.0-3.4 K/uL] 1.67 K/uL (01/23/24 1:47 PM) [place], Abs [0-1.0 K/uL] 0.81 K/uL (01/23/24 1:47 PM) Baso, Abs [0-0.1 K/uL] 0.04 K/uL (01/23/24 1:47 PM) Eos, Abs [0-0.5 K/uL] 0.22 K/uL (01/23/24 1:47 PM) Type of Diff: AUTO *Unknown* (01/23/24 1:47 PM) RDW [11.5-14.2 %] 13.6 % (01/23/24 1:47 PM) ACTH [6.0-63.0 pg/mL] 38 pg/mL (01/23/24 1:47 PM) Anion Gap [5-14 mmol/L] 10 mmol/L (01/23/24 1:47 PM) Alb [3.5-5.2 g/dL] 4.1 g/dL (01/23/24 1:47 PM) Alk Phos [40-130 unit/L] 62 unit/L 1 (01/23/24 1:47 PM) ALT [0-41 unit/L] 35 unit/L (01/23/24 1:47 PM) AST [0-40 unit/L] 30 unit/L (01/23/24 1:47 PM) BUN [6-23 mg/dL] 20 mg/dL (01/23/24 1:47 PM) Ca [8.4-10.2 mg/dL] 9.0 mg/dL (01/23/24 1:47 PM) Cl- [98-107 mmol/L] 101 mmol/L (01/23/24 1:47 PM) HCO3 [22-29 mmol/L] 26 mmol/L (01/23/24 1:47 PM) Cret [0.70-1.30 mg/dL] 1.12 mg/dL (01/23/24 1:47 PM) Glu [74-109 mg/dL] 130 mg/dL 2 *HI* (01/23/24 1:47 PM) Hct [39-48 %] 35.2 % *LOW* (01/23/24:47 PM) Hgb [13.0-17.0 g/dL] 11.8 g/dL *LOW* (01/23/24 1:47 PM) K [3.5-5.1 mmol/L] 4.8 mmol/L (01/23/24 1:47 PM) LDH [135-250 unit/L] 167 unit/L (01/23/24 1:47 PM) MCH [28-33 pg] 29.3 pg (01/23/24 1:47 PM) MCHC [32-36 g/dL] 33.5 g/dL (01/23/24 1:47 PM) MCV [81-96 fL] 87.3 fL (01/23/24 1:47 PM) Na [136-145 mmol/L] 137 mmol/L (01/23/24 1:47 PM) Plts [150-350 K/uL] 181 K/uL (01/23/24 1:47 PM) RBC [4.40-5.60 M/uL] 4.03 M/uL *LOW* (01/23/24 1:47 PM) Free T4 [0.9-1.7 ng/dL] 0.90 ng/dL (01/23/24 1:47 PM) T Bili [0.0-1.2 mg/dL] 0.4 mg/dL (01/23/24 1:47 PM) Prot [6.4-8.3 g/dL] 6.9 g/dL (01/23/24 1:47 PM) TSH [0.30-4.20 uIU/mL] 2.43 uIU/mL (01/23/24 1:47 PM) WBC [4.0-10.4 K/uL] 7.30 K/uL (01/23/24 1:47 PM) Free T3 [2.0-4.4 pg/mL] 2.8 pg/mL (01/23/24 1:47 PM) 1Result Comment: Low levels of ALKP may indicate a deficiency in zinc, magnesium, or malnutritionbutcan also be an indicator of a rare genetic disease hypophosphatasia (HPP). 2Result Comment: ADA recommendation for FASTING Serum/Plasma Glucose: Normal: 70-100 mg/dL Prediabetes: 100-125 mg/dL Diabetes: 126 mg/dL or higher Anatomic Pathology Reports * Report Case Number Specimen Responsible Pathologist Report Status Non-Senior Gis Analyst Cytology Report [id number] MD Soares Christopher; Final * Event Display: NG Interp Dx 1 Urine Negative for high grade urothelial carcinoma. Screened by: HU BOUCHER 01/24/2024 Completed by: Nimesh Soares MD (Electronically signed by) 01/24/2024 16:32 EDT Performing Location: [facility] MD Soares Christopher:VERIFY; Authored Date: * Event Display: NG Disclaimer [facility] performs the technical component for work verified at [facility]([address] [place] [address]; CLIA [id number]), [facility] ([address] [facility], [place] [address]; CLIA [id number]), and [facility] ([address] [place] [address]; CLIA [id number]). [facility] performs the technical component for work verified at [facility] ([address], [address], [place] [address]; CLIA [id number]) and [facility] ([address] [place] [address], [facility] [place] [address]; CLIA [id number]). All laboratories are under the Clinical Laboratory Improvement Amendments of 1988 (CLIA-88) as qualified to perform high complexity clinical laboratory testing. For immunohistochemical and histochemical stains on cell blocks or other liquid based preparations performed at [facility] and [facility], focused validation may have been done that does not necessary apply to all specimen types. Results should be interpreted within these limitations. MD Soares Christopher:VERIFY; Authored Date: * Event Display: NG Interp Adequacy 1 Urine Satisfactory for evaluation. MD Soares Christopher:VERIFY; Authored Date: * Event Display: NG Gross Received 58cc of cloudy, yellow fluid. -SFF MD Soares Christopher:VERIFY; Authored Date: * Event Display: NG Clinical History Bladder cancer surveillance s/p cystectomy. MD Soares Christopher:VERIFY; Authored Date: Vital Signs Most recent to oldest [Reference Range]: 1 Patient Weight 77.4 kg (01/23/24 3:37 PM) Temperature [36.5-37.9 DegC] 36.7 DegC (01/23/24 3:37 PM) Heart Rate 51 bpm (01/23/24 3:37 PM) Respiratory Rate 14 br/min (01/23/24 3:37 PM) Blood Pressure 112/50mmHg (01/23/24 3:37 PM) Mean Blood Pressure 69 mmHg (01/23/24 3:37 PM) Cuff Pulse Pressure 62 mmHg (01/23/24 3:37 PM) BP Location # 1 Right Arm (01/23/24 3:37 PM) Social History Social History Type Response Smoking Status Former Smoker, quit > 1 yr Sex Male Sex Representation Male (finding) Implantable Device List Procedure Provider Procedure Date Device Type Site Unknown Unknown 06/14/22 Unknown Unknown Device Identifier Serial Number Lot or Batch Number Manufacturing Date Expiration Date Distinct Identification Code MRI Safety Implantable Status Assigning Authority Unknown Unknown [id number] Unknown 08/08/26 Unknown Unknown Active Unk nown Outpatient Note * MD Mukund, Odette: PERFORM, MODIFY, MODIFY, MODIFY Event Display: .Outpt Note Authored Date: Chief Complaint Diagnosis: T2N0M0- stage II MIBC,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 Current Treatment: [facility] (Durvalumab, Enfortumab, Tremelimumab) Durva+ Trem+ EV C1D1 03/08/22; C1D8 EV 03/15/22 Durva C2D1 04/01/22 + Trem C2D8 04/08/22 + EV C2D1 04/01/22 and C2D8 04/08/22 Durva C3D1 04/22/22 + Trem C3D8 04/29/22 + EV C3D1 04/22/22 [id number] 04/29/22 On clinical trial Randolph [id number] [triplet in safety run; Neoadjuvant- Durva C1D1 1500mg every 3 weeks x 3 cycles (start date 03/08/22) then Sx and then adj Q4 weeks; Trem C1D1 75mg on 03/08/22 then C2D8; EV 1.25mg/kg Days 1, 8 every 3 weeks x 3 cycles (start date 03/08/22) , then Sx and then adjuvant Rx Durva Q4 weekly x 9 cycles; Trem x 1 Dose] C1D1 Trem + Durva 09/06/22- thereafter only Durva Q4 weekly C2D1 Durva 10/04/22 C3D1 Durva 11/01/22 C4D1 Durva 12/02/22 C5D1 Durva 12/30/22 [id number] 01/27/23 C7D1 Durva 02/24/23 C8D1 Durva03/24/23 C9D1 Durva 04/18/23 NOW ON SURVEILLANCE PART OF VOLGA Previous Treatment TURBT on 10/17/2013, followed by intravesical BCG until 2016 TURBT on 2016, followed by intravesical mitomycin C until November 2021 TURBT on01/08/2022 Other Treatment Open radical cystectomy, b/l PLND, ileal conduit- 06/14/22 History of Present Illness We had the pleasure of seeing Mr Morales for medical oncology follow up today 01/23/24. Oncologic History:Mr. Morales is a pleasant 78-year-old male with a known history of bladder cancer. He was initially diagnosed with non-muscle invasive bladder cancer in 2013 and treated with TURBT and multiple rounds of intravesical BCG. He had a recurrence in 2016, at that time he had TURBT f ollowed by intravesical mitomycin C monthly until November 2021. He was admitted to [facility] on 12/31/21 and 01/01/22 with left flank pain. He was found to have left hydronephrosis. On 01/08/22, he underwent a transurethral resection as well as placement of a left ureteral stent by Dr. Garg at [place]. 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 . He was recently seen by Dr. Melgar on 02/05/22 who referred him to medical oncology clinic. He consented for VOLGA and was eligible. He was randomized to D+T+EV ARM- he iss/p NAC and RC andnow getting adjuvant Rx. Adjuvant Rx started on 09/06/22. Admitted 09/08/2022-09/12/2022 for pelvicl abscess and was Rx for it;he followed up with Dr Melgar's office on 09/21/2022 and findings were consistent with a lymphocele. He continues to get adjuvant Rx He is now status post carpal tunnel surgery. Left wrist surgery, 3by Dr. Slaughter. He has recovered well. INTERIM HISTORY:Mr Zuletaomes for follow uptoday with his . He notes he is planning a trip to [facility] from 01/27/24-02/07/2024. He states he has been going to exercise class and he feels like this has helped his dizzy spells asthey have mostly resolved. He states he has had some continued numbness in his left hand three fingers and 1 finger on his right hand- better post carpel tunnel sx. Dr. Melgar is going to look at rt upper tract- neph tube on 02-09-24 and then upper tract exam on 02-20-24. He denies headache, double vision, blurry vision, difficulty swallowing, abnormal taste, abnormal sense of smell, bowel or bladder problems, rash, fever, nausea, vomiting, diarrhea orswelling. All other systems have been reviewed and are negative apart from mentioned here and above in Interval History. Relevant Radiology: (01/23/2024 13:[address] Chest Abdomen and Pelvis w/ + w/o Contrast; urogram) IMPRESSION: 1. No evidence of recurrent renal cell carcinoma or new metastases. 2. Unchanged chronic right hydroureteronephrosis with possible filling defects likely due to urine precipitation. [3] D/w Radiologist to amend report as he has h/o UCC and not renal cell cancer (12/28/2023 09:[address] Urogram) IMPRESSION: No change. No evidence of recurrent renal cell carcinoma. There is a small filling defect in the right renal pelvis arising from the anterior wall which most likely represents scar or fibrous tissue.No change. [1] (10/31/2023 09:[address] Urogram) 1. Bilateral striated nephrogram. Finding is nonspecific. May be seen in a setting of infection. Recommend correlating with urinalysis. 2. Nonspecific filling defect of the proximal right collecting system for which direct visualization may be considered if clinically indicated. 3. Unchanged mild bilateral hydroureteronephrosis, right greater than left. (10/31/2023 09:[address] Thorax w/ Contrast) 1. Bilateral striated nephrogram. Finding is nonspecific. May be seen in a setting of infection. Recommend correlating with urinalysis. 2. Nonspecific filling defect of the proximal right collecting system for which direct visualization may be considered if clinically indicated. 3. Unchanged mild bilateral hydroureteronephrosis, right greater than left. (08/12/2023 11:[address] Thorax w/ Contrast + CT Urogram) IMPRESSION: Postsurgical changes of cystectomy and ileal conduit formation. No evidence of local disease recurrence or metastasis Unchanged mild bilateral hydronephrosis, right greater than left. [1] (05/19/[address] Chest, Abdomen and Pelvis w/ + w/o contrast) 1. Postoperative changes from cystectomy with ileal conduit creation with no evidence of local recurrence or distant metastatic disease in the chest, abdomen, or pelvis. 2. Unchanged mild bilateral hydronephrosis, right greater than left. (02/24/2023 09:[address] Chest, Abdomen and Pelvis w/ + w/o Contrast) 1. New left apical 0.5 cm pulmonary nodule, favoring infectious/inflammatory etiology. Attention to on follow-up. 2. No evidence of recurrent or metastatic disease in the abdomen or pelvis. 3. Interval decrease in residual collection adjacent to the right external iliac artery. (12/02/2022 09:[address] Abdomen and Pelvis w/ + w/o Contrast) 1. No evidence of metastatic disease. 2. Small residual collection along the right external iliac vasculature, no longer with thick or enhancing wall or surrounding inflammation. 3. Subtle soft tissue thickening about the surgical clips along the right common iliac chain, butimproved, and may represent resolving postsurgical changing/scarring. 4. Right collecting system is mildly dilated, but the kidneys symmetrically enhance and both kidneys excrete on delayed phase imaging. (12/02/2022 09:[address] Thorax w/ Contrast) 1. No evidence of metastatic disease. 2. Small residual collection along the right external iliac vasculature, no longer with thick or enhancing wall or surrounding inflammation. 3. Subtle soft tissue thickening about the surgical clips along the right common iliac chain, butimproved, and may represent resolving postsurgical changing/scarring. 4. Right collecting system is mildly dilated, but the kidneys symmetrically enhance and both kidneys excrete on delayed phase imaging. (09/21/2022 13:[address] Abdomen and Pelvis w/ Contrast) Decreased right pelvic/right lower quadrant abscess. (09/06/2022 09:[address] Abdomen and Pelvis w/ + w/o Contrast) 1. Peripherally enhancing lesion in the right hemipelvis tracking from the anastomosis of the ureters with the conduit to the right pelvic sidewall. Findings are concerning for local recurrence. Infection remains a consideration, however it is thought to be less likely. 2. Bilateral hydronephrosis worsening on the left, likely due to soft tissue obstruction at the proximal conduit. Poor opacification of the ureters right worse than left limits evaluation of upper tract recurrence. 3. No filling defects within the opacified portion of the upper collecting system. 4. No findings of distant metastasis. (09/06/2022 09:[address] Thorax w/ Contrast) 1. Peripherally enhancing lesion in the right hemipelvis tracking from the anastomosis of the ureters with the conduit to the right pelvic sidewall. Findings are concerning for local recurrence. Infection remains a consideration, however it is thought to be less likely. 2. Bilateral hydronephrosis worsening on the left, likely due to soft tissue obstruction at the proximal conduit. Poor opacification of the ureters right worse than left limits evaluation of upper tract recurrence. 3. No filling defects within the opacified portion of the upper collecting system. 4. No findings of distant metastasis. (09/09/2022 15:14 EDT Echo TransTHORacic TTE Complete w/ Cont) Summary 1. Normal left ventricular size and systolic function with no regional wall motion abnormalities. 2. Estimated ejection fraction 65-70%. 3. Grade II diastolic dysfunction of the left ventricle (pseudonormal filling pattern). 4. Right ventricular dilation with normal function. 5. Biatrial enlargement. 6. No significant valvular abnormalities. 7. Insufficient data for estimation of pulmonary artery systolic pressures. 8. No prior studies for comparison. (07/28/2022 10:[address] Abdomen and Pelvis w/ + w/o Contrast) Soft tissue density at the location of the ileoconduit with a mild right hydroureteronephrosis and delayed nephogram. As this is the first postoperative scan and pathology of lymph nodes were negative, this is likely postsurgical change, as opposed to recurrence. No evidence of metastatic disease. (07/28/2022 10:[address] Thorax w/ Contrast) Soft tissue density at the location of the ileoconduit with a mild right hydroureteronephrosis and delayed nephogram. As this is the first postoperative scan and pathology of lymph nodes were negative, this is likely postsurgical change, as opposed to recurrence. No evidence of metastatic disease. (08/02/2022 17:00 EDT XR Hand 2 Views Left)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
--- OUTSIDE RECORDS SUMMARY | 2024-03-13 01:36 | External Medical Summary | Continuity of Care Document ---
Author Name Unknown Organization [facility] [address] [place] [address] CL[place] VINCENT [id number] Care Team Providers Care Associate Automation Engineer Name Role Phone Saeed Devlin Primary Care Physician [phone] [facility]counter [id number] Date(s): 03/06/24 - 03/06/24 [facility] [facility] Special[facility] [address], [address]tr[address], [address] [place] [address] [phone] Encounter Diagnosis Ureteroileal conduit stricture(Discharge Diagnosis) - 02/20/24 Discharge Disposition: Home or Self Care Attending Physician: MD Melgar Matthew G Referring Physician: DO Devlin Jason M Allergies, Adverse Reactions, Alerts No Known Allergies Assessment and Plan Extracted from: Title:Urology Office Visit Note Author:MD Melgar Matthew G Date:03/06/24 Ureteroileal conduit strictu re Patient is doing well. We orderedrenal function testing today. The plan wasto proceed with stent removal in 6 weeksif there is no change in his GFRwith a stent in place. If his GFR improves we will discuss leaving the reverse nephrostomy tube and exchanging it versusremoving itfor atrial without stent. This is his first attempt at managing the stricture I am hopeful that it would remainwidely patent without a stent. At the time of this note hisrenal function has returned andthere is minimal change since stent placement a couple weeks ago. Since it does not seem to be a physiologic improvement with a stent in placeand again is reasonable to remove. We will leave it in situa little longerto try to achieve optimal healing. Medications acetaminophen Start: 02/20/24 6:37:00 AM EST, [...] cap, PRN: as needed for constipation, Pharmacy: [facility] [place] Start Date: 06/18/22 Status: Ordered ferrous sulfate [...] Start Date: 06/14/22 Status: Ordered Mental Status 03/06/24 Barriers to Learning one year None evide nt Mandatory Health Literacy Documentation Yes Health Literacy Communication Barriers N ever Primary Language Welsh Problem List Condition Confirmation Course Effective Dates [...] Effective Dates Health Status Clinical Service Informant Ureteroileal conduit stricture Discharge Diagnosis 02/20/24 Non-Specified [...] 2005 Completed Stent placement, Coronary Artery x 6 2005 Completed Prostatectomy 2004 Completed Shave biopsy of skin 06/24/99 Comp leted Bladder biopsy sample Com pleted CHEMO PROLONG INFUSE W/PUMP Completed Extraction of wisdom tooth Completed Hip replacement bilateral 6 Completed 1surgery 2bladder 3with curettage 4with curettage 5detached retina 2011 6R ; L Results Laboratory List Name Date Basic Metabolic Panel (BASIC METAB PANEL ) 03/06/24 Most recent to oldest [Reference Range]: 1 eGFR CKD-EPI [>60 mL/min/1.73 m2] 61 mL/ min/1.73 m2 (03/06/24 12:05 PM) Estimated CrCl 49.50 mL/min (03/06/24 1:09 PM) Anion Gap [5-14 mmol/L] 11 mmol/L (03/06/24 12:05 PM) BUN [6-23 mg/dL] 17 mg/dL (03/06/24 12:05 PM) Ca [8.4-10.2 mg/dL] 9.1 mg/dL (03/06/24 12:05 PM) Cl- [98-107 mmol/L] 103 mmol/L (03/06/24 12:05 PM) HCO3 [22-29 mmol/L] 27 mmol/L (03/06/24 12:05 PM) Cret [0.70-1.30 mg/dL] 1.21 mg/dL (03/06/24 12:05 PM) Glu [74-109 mg/dL] 98 mg/dL 1 (03/06/24 12:05 PM) K [3.5-5.1 mmol/L] 4.6 mmol/L (03/06/24 12:05 PM) Na [136-145 mmol/L] 141 mmol/L (03/06/24 12:05 PM) 1Result Comment: ADA recommendation for FASTING Serum/Plasma Glucose: Normal: 70-100 mg/dL Prediabetes: 100-125 mg/dL Diabetes: 126 mg/dL or higher Social History Social History Type Response Smoking Status Former Smoker, quit > 1 yr Sex Male Sex Representation Male (finding) Implantable Device List Procedure Provider Procedure Date Device Type Site Unknown Unknown 06/14/22 Unknown Unknown Device Identifier Serial Number Lot or Batch Number Manufacturing Date Expiration Date Distinct Identification Code MRI Safety Implantable Status Assigning Authority Unknown Unknown [id number] Unknown 08/08/26 Unknown Unknown Active Unk nown Outpatient Note * MD Ramón, Arvind Nunez: PERFORM Event Display: .Outpt Note Authored Date: Chief Complaint follow-up after cystoscopy History of Present Illness This pleasant 78-year-old male who is status post radical cystectomy for bladder cancer returns after dilation of ureteral stricture. He has a reverse nephrostomy tubepresent in hisileal conduit. He has been tolerating this well and recovering well after the procedure. He has no complaints today. He comes today to follow-uppostoperatively and to obtain laboratory work. Review of Systems Review Of Systems: _ 14 point review of systems completed and negative except as documented in HPI. Physical Exam General:Alert, Oriented, Well developed, Well-nourished. Airway: Mouth: Within normal limits. Teeth: Denies loose/broken teeth. Head:Normocephalic. Neck:Supple, Good extension, Good flexion. Trachea:Midline. Respiratory:symmetric and non labored respiratioins bilaterally. Cardiovascular: Heart: RRR. Edema: None. Gastrointestinal:Soft,Non-tender. Musculoskeletal:Normal strength. Neurologic:Normal sensory, Normal motor, No focal deficits. 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 We orderedrenal function testing today. The plan wasto proceed with stent removal in 6 weeksif there is no change in his GFRwith a stent in place. If his GFR improves we will discuss leaving the reverse nephrostomy tube and exchanging it versusremoving itforatrial without stent. This is his first attempt at managing the stricture I am hopeful that it would remainwidely patent without a stent. At the time of this note hisrenal function has returned andthere is minimal change since stent placement a couple weeks ago. Since it does not seem to be a physiologic improvement with a stent in placeand again is reasonable to remove. We will leave it in situa little longerto try to achieve optimal healing. Problem List/Past Medical History Ongoing ACTINIC KERATOSIS [...] W/PUMPHip replacement bilateralExtraction of wisdom tooth Medications acetaminophen, 500 mg, PO, q6h, PRN aspirin(aspirin 81 mg oral delayed release tablet), 81 mg= 1 tab, PO, qPM atorvastatin(Lipitor 80 mg oral tablet), 80 mg= 1 tab, PO, qhs biotin, 1000 mcg, PO, Daily chondroitin-glucosamine(Osteo Bi-Flex), PO, Daily docusate(Colace 100 mg oral capsule), 100 mg= [...] Status Former Smoker, quit > 1 yr Recommendations Health Maintenance Pending(in the next year) OverDue Adult Influenza Vaccine due09/25/23and every 1year Due Adult COVID-19 Vaccination due03/06/24Unknown Frequency Adult Social Determinants of Health Screening due03/06/24Unknown Frequency Adult Tdap/Td Vaccine due03/06/24Unknown Frequency Medicare Annual Wellness Visit due03/06/24and every 1year Pneumococcal Vaccine Older Adults due03/06/24One-time only Shingles Vaccine due03/06/24One-time only Due In Future Body Mass Index not due until01/23/25and every 366day Satisfied(in the past 1 year) Satisfied Body Mass Index on02/20/24.Satisfied by HOWARD Somers Benjamin Electronic Signature on File CC: Saeed Devlin, [facility] [address] [place] [id number] * Electronically Reviewed/Signed by: Arvind Melgar MD Author Signature Dt/Tm:03/06/2024 08:02 PM Department of Urology [facility] Patient Care team information Care Team Personnel Name: Arti Smith Kimberly Position: Pharmacist BCMA Member Role: Pharmacy - [facility] Address: [place] [address] [place] Name: MD Duval Monika Position: Physician - Hem/Onc Member Role: Lifetime Relationship Address: [address] [place] [address] [place] Name: Arti Mahmood Ann Position: Pharmacist Member Role: Pharmacy - Lifetime Name: MD Veronica Jay D Position: Physician - Urology Member Role: Lifetime Relationship Address: [address] [place] [address] Care Team Related Persons Name: CLAYTON MOSS"
--- OUTSIDE RECORDS SUMMARY | 2024-03-13 01:36 | External Medical Summary | Continuity of Care Document ---
Author Name Unknown Organization [facility] [address] [place] [id number] Care Team Providers Care Tool Repairer Name Role Phone Saeed Devlin Primary Care Physician [phone] Encounter [facility] [id number] Date(s): 02/14/24 - 02/14/24 [facility] [address], [address], [address] [place] [address] Encounter Diagnosis Bladder cancer(Discharge Diagnosis) - 02/12/24 Preop examination(Discharge Diagnosis) - 02/14/24 Discharge Disposition: Home or Self Care Attending Physician: MD Jernigan Sonia J Referring Physician: MD Ramón, Arvind Nunez Allergies, Adverse [...] q12h, Disp# 14 tab, Refills: 0, [facility] [place] Start Date: 11/24/23 Stop Date: 12/01/23 Status: Ordered Co-Q10 50 mg oral capsule Start: 06/22/21 9:10:00 AM EDT, 1 cap, PO, Daily Start Date: 06/22/21 Status: Ordered Colace 100 mg oral capsule Start: 06/18/22 7:47:00 AM EDT, 1 cap, PO, bid, Disp# 60 cap, PRN: as needed for constipation, Pharmacy: [facility] [place] Start Date: 06/18/22 Status: Ordered ferrous sulfate [...] Clinical Service Informant Bladder cancer Discharge Diagnosis 02/12/24 Non-Specified Preop examination Discharge Diagnosis 02/14/24 Procedures Procedure Date Related Diagnosis Body Site [...] 2bladder 3with curettage 4with curettage 5detached retina 2012 6R ; L Social History Social History Type Response Smoking Status Former Smoker, quit > 1 yr Sex Male Sex Representation Male (finding) Implantable Device List Procedure Provider Procedure Date Device Type Site Unknown Unknown 06/14/22 Unknown Unknown Device Identifier Serial Number Lot or Batch Number Manufacturing Date Expiration Date Distinct Identification Code MRI Safety Implantable Status Assigning Authority Unknown Unknown [id number] Unknown 08/08/26 Unknown Unknown Active Unk nown Anes H&P * MD Delon, Zenaida Alanis: SIGN MD Delon, Zenaida Alanis: SIGN, VERIFY MD Jernigan Sonia J: VERIFY, SIGN DO Paniagua Nathan Alexander: MODIFY, SIGN DO Paniagua Nathan Alexander: SIGN Event Display: Anes H&P Authored Date: [id number] Patient: BILL MOSS Age: 78 years Sex: Male : 1945 Associated Diagnoses: None Author: YAMILETH De Dios, Parul Dalton Preoperative Information Anesthesia Preop Info: Procedure: Right antegrade nephrostogram, right antegrade ureteroscopy, possible biopsy, possible ablation Date: 02/20/24 07:30 Surgeons: MD Ramón, Arvind Nunez Diagnosis: UROTHELIAL CARCINOMA . History of Present Illness 78 yo M a h/o prostate cancer s/p prostatectomy, MIBC s/p RC/IC (May 2022). He is now scheduled for above Best phone number to contact patient: [phone] COVID vaccine completed + booster (most recent [...] History Cardiovascular: F/b Cardiology from different facility ([facility]), See studies or note below. CAD: Cardiac Intervention ( s/p 6 stents in RCA "full metal jacket" in 2005. Rx ASA 81mg., 09/09/22 [facility] Echo: EF 65-70%, Gr II diastolic dysfunction [...] ileal conduit - 06/14/22 On clinical trial [place] [phone] [triplet in safety run; Neoadjuvant- Durva [...] 01/05/24 Orthopedics: S/P: Left MIGUEL, Right MIGUEL. Health Status Allergies: Allergic Reactions (Selected) NKA. Histories Procedure History: Carpal tunnel (SNOMED CT 977179453) on 11/11/2022 at 77 Years. Comments: 12/02/2022 11:30 EDT - RON Crockett, Karen surgery open radical cystectomy, b/l PNLD, ileal conduit (SNOMED CT 7899609796) on 06/14/2022 at 77 Years. Colonoscopy (SNOMED CT 488086604) in the month of 01/2019 at 73 Years. Chemotherapy (SNOMED CT 806053264) in the month of 01/2019 at 73 Years. Comments: 08/14/2019 08:31 CHRISTIANA Preciado LPN, Henna bladder Shave biopsy and cauterization of skin (SNOMED CT [id number]) performed by MD Aaron David L on 02/03/2015 at 69 Years. Comments: 02/03/2015 11:12 SHUKRI Carranza RN, Deana Epstein with curettage Excision of melanoma (SNOMED CT [id number]) on 08/14/2014 at 69 Years. Shave biopsy and cauterization of skin (SNOMED CT 2045909018) performed by MD Aaron David L on 07/31/2014 at 69 Years. Comments: 07/31/2014 14:33 CHRISTIANA Carranza RN, Deana Epstein with curettage Resection, Bladder (SNOMED CT 622891317) on 09/18/2013 at 68 Years. Shave biopsy of skin (SNOMED CT 674348391) on 07/11/2012 at 67 Years. Cataract surgery, Left (SNOMED CT 757113592) in 2012 at 67 Years. Right Eye Vitrectomy x 2 - Detached Retina in 2011 at 66 Years. Comments: 07/11/2012 08:41 Eugenia Potts detached retina 2012 Cataract surgery, Right (SNOMED CT 804471950) in 2011 at 66 Years. Bladder Surgery 1 stent (SNOMED CT 6188111193) in the month of 07/2008 at 63 Years. ORIF - Open reduction and internal fixation of fracture,Right Ankle (SNOMED CT 937348365) in the month of 02/2006 at 60 Years. Stent placement, Coronary Artery x 6 (SNOMED CT 417910874) in 2006 at 60 Years. Primary repair of inguinal hernia. Right (SNOMED CT 642623050) in 2006 at 60 Years. Cardiac catheterization (SNOMED CT 30101816) in 2006 at 60 Years. Prostatectomy (SNOMED CT 956004157) in 2004 at 59 Years. Shave biopsy of skin (SNOMED CT 579859056) on 06/24/1999 at 54 Years. Hip replacement bilateral (SNOMED CT 8026916198). Comments: 10/18/2022 08:27 EDT - JJ Casper, Missy R ; Camilla Extraction of wisdom tooth (SNOMED CT 268071274). CHEMO PROLONG INFUSE W/PUMP (CPT4 84843). Bladder biopsy sample (SNOMED CT 008733937).. Social History: Cigarrette Smoker? Former Smoker, quit age 30, prior 1 ppd x 18 years. Uyen COPD. Other Tobacco Use: Never used other tobacco products Alcohol Frequency: Weekly Alcohol Type: Beer, Liquor, Wine Recreational Drugs: Denies . Assessment and Plan Medications: Pre-Surgery Medication Instructions Please bring this medication list with you to the hospital on the day of surgery. Make a note of the date and time of the last dose taken prior to surgery for each medication. It is very important we have an accurate list of your medications prior to your procedure. Please review this medication list with your home medications and call [phone] prior to your procedure with any changes to your prescription medications. aspirin (aspirin 81 mg oral delayed release tablet) 1 tab by mouth every evening . take the night before as usual atorvastatin (Lipitor 80 mg oral tablet) 1 tab by mouth at bedtime . take the night before as usual biotin 1,000 mcg by mouth once daily . hold now until after surgery chondroitin-glucosamine (Osteo Bi-Flex) by mouth once daily . hold now until after surgery docusate (Colace 100 mg oral capsule) 1 cap by mouth 2 times daily, as needed for constipation . Do not take the morning of surgery. ferrous sulfate (ferrous sulfate 200 mg (65 mg elemental iron) oral tablet) 1 tab by mouth once daily . Do not take the morning of surgery. fluoride topical (PreviDent 5000 Booster 1.1% topical paste) 1 appl topically at bedtime . Do not take the morning of surgery. magnesium oxide (Mag-Ox 400) 400 mg by mouth once daily . Do not take the morning of surgery. multivitamin with minerals (Ocuvite) 1 tab by mouth once daily . Do not take the morning of surgery. sertraline (sertraline 100 mg oral tablet) 1 tab by mouth every evening . take the night before as usual ubiquinone (Co-Q10 50 mg oral capsule) 1 cap by mouth once daily . hold now until after surgery unknown medication (Focus Factor) 1 tab by mouth once daily . hold now until after surgery unknown medication (Zicam) .1 tablet prn not taking . Does patient use aspirin?: Yes. Does patient use beta blockers?: No. Does patient use MICHELLE- I/ARB drugs?: No. Does patient use narcotic analgesics for chronic pain? (>1 month AND >30mg morphine or equivalent daily): No. Anesthesiologist Assessment and Plan Problems: No active cardiac conditions, No previous anesthetic complications, No a/w concerns. Cardiac risk factors: CAD. ASA Classification: Class III. Anesthetic Plan: Anesthetic technique discussed: General anesthesia. Airway plan discussed: Laryngeal mask airway, Oral endotracheal tube. Risks discussed: Nausea-vomiting, Headache, Sore throat, Dental injury, Eye injury, Allergic reaction, Serious complications, Nerve damage. Informed consent: to be signed day of surgery . Review / Management Laboratory Results: Lab results 02/09/2024 07:56 EST BUN 22 mg/dL Cret 1.23 mg/dL eGFR CKD-EPI 59 mL/min/1.73 m2 LOW WBC 7.91 K/uL Hgb 11.8 g/dL LOW Hct 34.9 % LOW RBC 4.04 M/uL LOW MCV 86.4 fL MCHC 33.8 g/dL MCH 29.2 pg RDW 13.3 % Plts 181 K/uL MPV 9.9 fL INR 1.0 PT 13.2 seconds 01/23/2024 13:47 EDT Na 137 mmol/L K 4.8 mmol/L Cl- 101 mmol/L HCO3 26 mmol/L Anion Gap 10 mmol/L BUN 20 mg/dL Cret 1.12 mg/dL . Ordered Today: None. EKG: EKG was not ordered due to [...] pressures. 8. No prior studies for comparison.. Orders placed for day of surgery: None. Pending issues: None. Patient Education Patient Education: A.[facility]. TeleHealth I have confirmed the patients name and date of . The patient has consented to this service,and I have advised the patient that this is a billable visit for which they may be subject to a copay.: Yes. The provider initiated this visit after explaining the need for this visit to the patient, who has consented to this virtual visit.Untitled: Yes. I am located at my: Office. The patient is located at: Home. This visit was conducted via Telephone, and was not related to a visit or procedure that occurred within the past 7 days.: Yes. Total time spent communicating with the patient: 11 minutes . Electronic Signature on File Electronically Reviewed/Signed by: Parul De Dios, GILLES, WELFARE OFFICER Author Signature Dt/Tm:02/14/2024 08:32 AM [facility] Electronically Reviewed/Signed by: Aldo Paniagua DO Cosigner Signature Dt/Tm: 02/14/2024 08:41 AM Resident Department of Anesthesia Electronically Reviewed/Signed by: Zenaida Jernigan MD Cosigner Signature Dt/Tm: 02/16/2024 12:37 PM Department of Anesthesia [facility] Patient Care team information Care Team Personnel Name: Arti Smith Kimberly Position: Pharmacist BCMA Member Role: Pharmacy - Lifetime Address: [address] [address] Name: MD Duval Monika Position: Physician - Hem/Onc Member Role: Lifetime Relationship Address: [address] [place] [address] Name: Atri Mahmood Ann Position: Pharmacist Member Role: Pharmacy - Lifetime Name: MD Jeremías, Ramesh Clark Position: Physician - Urology Member Role: Lifetime Relationship Address: [address] [place] [id number] Care Team Related Persons Name: CLAYTON MOSS
--- OUTSIDE RECORDS SUMMARY | 2024-03-13 01:37 | External Medical Summary | Continuity of Care Document ---
Author Name Unknown Organization [facility] Address [address] [place] [address] [place] VINCENT [id number] Care Team Providers Care Cell Operation Supervisor Name Role Phone Saeed Devlin Primary Care Physician [phone] Encounter [facility] [id number] Date(s): 01/05/24 - 01/05/24 [facility] [place] [facility] [id number], [place] [id number]- [phone] Encounter Diagnosis Urothelial cancer(Discharge Diagnosis) - 01/05/24 Discharge Disposition: Home or Self Care Attending Physician: MD Melgar Matthew G Referring Physician: MD Melgar Matthew G Allergies, Adverse Reactions, Alerts No Known Allergies Assessment and Plan Extracted from: Title:Right neph tube placem ent 02/09/2024. Author:TAWNYA Burger Holly Date:01/06/24 INTERVENTIONAL RADIOLOGY OUTPATIENT NOTE Name: BILL MOSS Patient Number: [id number] : 1945 Date of Service: 01/06/2024 PROCEDURE: IR Neph Tube Placement SCHEDULED DATE: 02/09/2024 Diet and Medications: No food after midnight except for clear non-carbonated liquids up to 1 hour prior to arrival time. Take all prescribed medications with small sips of water except as directed below. Hold the following prior the procedure: Aspirin for 5 days Other Orders: Medications aspirin 81 mg oral delayed release tablet Start: 06/01/22 11:49:00 AM EST, 1 tab, PO, Daily Start Date: 06/01/22 Status: Ordered biotin Start: 08/14/18 9:08:00 AM EDT, 1,000 mcg =, PO, Daily Start Date: 08/14/18 Status: Ordered ciprofloxacin 500 mg oral tablet Start: 11/24/23 3:31:00 PM EDT, 1 tab, PO, q12h, Disp# 14 tab, Refills: 0, Pharmacy: [facility] Start Date: 11/24/23 Stop Date: 12/01/23 Status: Ordered Co-Q10 50 mg oral capsule Start: 06/22/21 9:10:00 AM EDT, 1 cap, PO, Daily Start Date: 06/22/21 Status: Ordered Colace 100 mg oral capsule Start: 06/18/22 7:47:00 AM EDT, 1 cap, PO, bid, Disp# 60 cap, PRN: as needed for constipation, Pharmacy: [facility] Start Date: 06/18/22 Status: Ordered [...] Start Date: 06/14/22 Status: Ordered Mental Status 01/05/24 Barriers to Learning one year None evide nt Mandatory Health Literacy Documentation Yes Health Literacy Communication Barriers N ever Primary Language Wolof Problem List Condition Confirmation Course Effective Dates [...] Effective Dates Health Status Clinical Service Informant Urothelial cancer Discharge Diagnosis 01/05/24 Non-Specified Procedures Procedure Date Related Diagnosis Body [...] Most recent to oldest [Reference Range]: 1 Height 172.8 cm (01/05/24 8:37 AM) Patient Weight 76.6 kg (01/05/24 8:37 AM) Body Mass Index 25.65 kg/m2 (01/05/24 8:37 AM) Temperature [36.5-37.9 DegC] 36.3 DegC *LOW* (01/05/24 8:37 AM) Heart Rate 48 bpm (01/05/24 8:37 AM) Respiratory Rate 1 br/min (01/05/24 8:37 AM) Blood Pressure 110/60mmHg (01/05/24 8:37 AM) Cuff Pulse Pressure 50 mmHg (01/05/24 8:37 AM) BP Location # 1 Left Arm (01/05/24 8:37 AM) Social History Social History Type Response Smoking Status Former Smoker, quit > 1 yr Sex Male Sex Representation Male (finding) Implantable Device List Procedure Provider Procedure Date Device Type Site Unknown Unknown 06/14/22 Unknown Unknown Device Identifier Serial Number Lot or Batch Number Manufacturing Date Expiration Date Distinct Identification Code MRI Safety Implantable Status Assigning Authority Unknown Unknown [id number] Unknown 08/08/26 Unknown Unknown Active Unk nown Interventional Rad Outpt Note * TAWNYA Burger, Neida: PERFORM Event Display: Interventional Rad Outpt Note Authored Date: [id number] INTERVENTIONAL RADIOLOGY OUTPATIENT NOTE Name: BILL MOSS Patient Number: [id number] : 1945 Date of Service: 01/06/2024 PROCEDURE: IR Neph Tube Placement SCHEDULED DATE: 02/09/2024 Diet and Medications: No food after midnight except for clear non-carbonated liquids up to 1 hour prior to arrival time. Take all prescribed medications with small sips of water except as directed below. Hold the following prior the procedure: Aspirin for 5 days Other Orders: Electronic Signature on File Electronically Reviewed/Signed by: CLARA Lee Author Signature Dt/Tm:01/06/2024 09:34 AM [facility] [place] [facility] Patient Care team information Care Team Personnel Name: Arti Smith Kimberly Position: Pharmacist BCMA Member Role: Pharmacy - Lifetime Address: [place] [address] [place] Name: MD Duval Monika Position: Physician - Hem/Onc Member Role: Lifetime Relationship Address: [address] [place] [address] [place] Name: Arti Mahmood Ann Position: Pharmacist Member Role: Pharmacy - Lifetime Name: MD Jeremías, Ramesh Clark Position: Physician - Urology Member Role: Lifetime Relationship Address: [address] [place] [address] Care Team Related Persons Name: CLAYTON MOSS
--- OUTSIDE RECORDS SUMMARY | 2024-03-13 01:37 | External Medical Summary | Continuity of Care Document ---
Author Name Unknown Organization [facility] Address [address] [place] [address] [phone] Care Team Providers Care Interactive Media Project Manager Name Role Phone Saeed Devlin Primary Care Physician [phone] Encounter [facility] [id number] Date(s): 12/28/23 - 12/28/[address] [phone] Discharge Disposition: Home or Self Care Attending [...] q12h, Disp# 14 tab, Refills: 0, Pharmacy: [facility] Start Date: 11/24/23 Stop Date: 12/01/23 Status: Ordered Co-Q10 50 mg oral capsule Start: 06/22/21 9:10:00 AM EDT, 1 cap, PO, Daily Start Date: 06/22/21 Status: Ordered Colace 100 mg oral capsule Start: 06/18/22 7:47:00 AM EDT, 1 cap, PO, bid, Disp# 60 cap, PRN: as needed for constipation, Pharmacy: [facility] Start Date: 06/18/22 Status: Ordered eye [...] Exam Date Time Procedure Performing Provider Status 12/28/23 9:[address] Urogram Janelle Mendez; Final Notes: (CT Urogram) Reason For Exam: evaluate right kidney filling defect CT Urogram EXAMINATION: CT Urogram CLINICAL HISTORY: [...] FINDINGS: Lower chest: Normal ABDOMEN Liver, Gallbladder \T\ bile ducts: Normal liver. Cholelithiasis. No pericholecystic [...] Mesenteric vasculature enhances normally. No lymphadenopathy. Bowel \T\ Mesentery: Diverticulosis. Normal appendix. No free fluid [...] likely represents scar or fibrous tissue.No change. [place] Act 112: This study does not meet the requirements of [place] Act 112. Workstation ID: [id number] Final Dictated by:MD Durham Seth Millard Dictated DT/TM:12/28/2023 10:46 Signed by:MD Durham Seth Millard Signed (Electronic Signature):12/28/2023 10:45 Social History Social History Type Response Smoking Status Former Smoker, quit > 1 yr Sex Male Sex Representation Male (finding) Implantable Device List Procedure Provider Procedure Date Device Type Site Unknown Unknown 06/14/22 Unknown Unknown Device Identifier Serial Number Lot or Batch Number Manufacturing Date Expiration Date Distinct Identification Code MRI Safety Implantable Status Assigning Authority Unknown Unknown [id number] Unknown 08/08/26 Unknown Unknown Active Unk nown Patient Care team information Care Team Personnel Name: Arti Smith Kimberly Position: Pharmacist BCMA Member Role: Pharmacy - Lifetime Address: [place] [address] [place] Name: MD Duval Monika Position: Physician - Hem/Onc Member Role: Lifetime Relationship Address: [address] [place] [address] [place] Name: Arti Mahmood Ann Position: Pharmacist Member Role: Pharmacy - Lifetime Name: MD Veronica Jay D Position: Physician - Urology Member Role: Lifetime Relationship Address: [address] [place] [address] [place] Care Team Related Persons Name: CLAYTON MOSS
[2024-03-13] MEDS: ACETAMINOPHEN 325 MG TAB PO PRN (02:11)
--- NOTE | 2024-03-13 08:01 | Urology Consultation ---
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 Patient afebrile and hemodynamically stable. Labs reviewedcreatinine 1.53, WBC 6.14, hemoglobin 10.1. Urinalysis was suspicious for infection. Urine culture did not identify any specific bacteria. Blood cultures are pending. Continue with broad-spectrum antibiotics and narrow per sensitivity data when available. CT reviewed and discussedmoderate to severe right hydronephrosis; moderate left hydronephrosis. Right ureteral stent is displaced into the distal ureter and within the urostomy. Discussed options for right ureteral stent exchange today. He would like to proceed with intervention. Proceed to OR for cystoscopy and right ureteral stent exchange. Risks and benefits of procedure to be reviewed with patient by Dr. Garg. Keep n.p.o. for procedure. Continue with scheduled Zosyn for preoperative antibiotic. Continue supportive care and medical management per hospital team. 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 Also reporting right ureteral stent displacement. On arrival to ED, he was afebrile and hemodynamically stable. Lab work showed sodium 132, creatinine 1.53, hemoglobin 11.5, no leukocytosis. Urinalysis showed 1+ protein, 1+ blood, 3+ LE, >50 WBC and 4+ bacteria. Viral PCR detected rhinovirus. He was treated with IV fluids, acetaminophen and Zosyn in the emergency department. Workup included CT abdomen and pelvis which showed moderate to severe right hydronephrosis. Moderate left hydronephrosis. No obstructing ureteral calculus visualized. Right ureteral stent is malpositioned in the distal right ureter and extending out of the urostomy. Urology is consulted for displaced ureteral stent. Patient seen and examined at bedside. He denies flank pain at present. No fever or chills at present. He reports his right ureteral stent was placed on 02/20/2024 at [facility]. He reports that last week she developed right flank discomfort and noted his ureteral stent was largely in his urostomy bag. He reports urostomy is functioning appropriately, good urine output. No nausea or vomiting. He is currently NPO. Allergies Allergy/AdvReac Type Severity Reaction Status Date / Time No Known Drug Allergies Allergy Mild Verified 11/29/23 13:52 Home Medications Medication Instructions Recorded Confirmed Type coenzyme Q10 100 mg capsule 100 mg PO HS 01/30/18 11/29/23 History (CoQ-10) vitamin E 670 mg (1,000 unit) 1,000 unit PO HS 01/30/18 11/29/23 History capsule biotin 2,500 mcg capsule 2,500 mcg PO HS 06/21/18 11/29/23 History iron,carbonyl 65 mg-vitamin C 125 1 tab PO HS 07/04/18 11/29/23 History mg tablet,delayed release (Vitron-C) vitamin B complex (B 1 tab PO HS 11/09/18 11/29/23 History Complex-Vitamin B12 tablet) glucosamine sulf dipot 1 cap PO HS 11/12/21 11/29/23 History chlr,msm,chond 550 mg-C 30 mg-rex 1 mg capsule (Glucosamine Chondroitin) aspirin 81 mg tablet,delayed 81 mg PO QPM 01/05/22 11/29/23 History release (Kallie Low Dose Aspirin) atorvastatin 80 mg tablet 80 mg PO HS #90 tabs 05/30/23 11/29/23 Rx sertraline 100 mg tablet (Zoloft) 100 mg PO HS #90 tabs 11/02/23 11/29/23 Rx magnesium oxide 400 mg PO DAILY 11/29/23 11/29/23 History mv-mn-folic 200 mcg-vit K 15 1 cap PO DAILY 11/29/23 11/29/23 History mcg-lutein 5 mg-zeaxanthin 1 mg capsule (PreserVision AREDS 2 Plus Multivit) Patient History Medical History History of COVID-19 diagnosed 03/15/23 via home test--fatigue, nasal congestion, loss of appetite--resolved, no symptoms now Neuropathy Anxiety History of blood transfusion 2008 d/t bleeding in bladder per pt CAD (coronary artery disease) Stents x6 ([facility]/2006) HLD (hyperlipidemia) Lumbar spondylosis Sleep apnea CPAP (compliant) Depression with anxiety Bladder cancer 2013 - TURBT 2017. 05/2022 total cystectomy w/ ileal conduit formation. ongoing immunotherapy. Chronic back pain Prostate cancer 2005 > prostatectomy Anemia chronic Hearing deficit wears hearing aids Surgical History History of carpal tunnel surgery of right wrist 04-21-23 R wrist History of carpal tunnel surgery of left wrist S/P ileal conduit H/O total cystectomy w/ ileal conduit formation Status post right hip replacement History of left hip replacement 12-02-21 S/P L MIGUEL with Dr Mcfarland S/P hip replacement Right MIGUEL (07/07/21): SAB at L3/4 x1 attempt at [facility]. No issues noted per post-op anesthesia progress note. History of tooth extraction S/P LASIK surgery of both eyes H/O cataract removal with insertion of prosthetic lens bilat History of colonoscopy with polypectomy 02/14/2019 anesthesia progress note: "The patient came to the PACU coughing with an 02 sat of 91. His breath sounds were coarse. He was given a duoneb treatment with almost complete resolution of his coughing, his 02 sat rudi to 100% and he felt much better. I presume that he aspirated saliva as there was no apparent aspiration during the procedure. The patient was presumed to have aspirated saliva and a CXR was odered which was read as no acute disease.He was coached to cough and deep breathe and he was discharged with a room air sat of 99%. He was discharged with an incentive spirometer and instructed to call Dr. Valencia or go to the ED if he develops a fever." No subsequent issues upon chart review, confirmed by pt at 2020 PAT appointment. History of wisdom tooth extraction History of repair of inguinal hernia Open Left Indirect Inguinal Hernia repair 10/17/2018: LMA#4, atraumatic. No issues per anesthesia progress note. History of open reduction and internal fixation (ORIF) procedure right ankle--hardware in place History of prostate biopsy malignant History of biopsy of bladder x2 History of esophagogastroduodenoscopy (EGD) History of right inguinal hernia repair History of cystoscopy multiple d/t bladder cancer History of bladder surgery x2; TURBT on 02/14/2018: LMA #4, atraumatic x 1. No issues per anesthesia progress note. H/O radical prostatectomy 2005 History of tonsillectomy and adenoidectomy History of detached retina repair right x2 History of vitrectomy x2 (right) History of cardiac cath 2006, was having upper repiratory problems/neck pain-turned out to be angina, with 6 stents @ [facility] Family History Mother , Age 90 Congestive heart failure Anxiety disorder Depression Father , Age 79 Malignant melanoma of skin Heart disease Leukemia Myocardial infarction Brother Prostate cancer Spindle cell sarcoma Melanoma Other Cancer Denies family history of Ovarian cancer Breast cancer Colorectal cancer Social History Smoking Status: Former smoker Tobacco Type: Cigarettes Second Hand Exposure: Yes (hx.); Do You Dip or Chew Tobacco: No; Hx Alcohol Use: Yes Alcohol type: beer, wine, hard liquor and other Alcohol Intake Frequency: 2-3 x/Week Alcohol Intake Frequency Comment: 1-2 x/week Hx Substance Use: No Preferred Language: Pashto Communication Ability: Effective Visual Impairment: Limited Hearing Ability: Use of Hearing Aid Real Estate Valuer Required: No Beliefs That Will Affect Care: None and Spiritual marital status: Current Living Situation: Spouse Current Living Situation Comment: 2 story home with current occupational status: retired How many Children do You have: 4 Other Information That Helps Us Care for You: No Feels Safe at Home: Yes Safety Concerns: Feels Safe At This Time Childhood Exposure to Second-Hand Smoke: Yes Diet: regular caffeine: Yes during the past year weight has: remained stable Dental Care, Regularly: Yes Physical Activity Frequency: Daily Seatbelt Use: always Sunscreen Use: Yes Do you think of yourself as: straight/heterosexual Sexual Activity: has been sexually active, but not for at least 12 months Gender Identity: Male Assistive Devices: Glasses and Walker Review of Systems Review of Systems: All systems reviewed & are unremarkable except as noted in HPI & below Physical Exam Constitutional: well developed and well nourished; no acute distress Respiratory: normal respiratory effort; no respiratory distress and no labored breathing Gastrointestinal (Abdomen): Inspection/Auscultation: abdomen normal to inspection Musculoskeletal: Head/Neck/Chest: normocephalic Neurologic: moves all extremities and awake Psychiatric: Orientation: alert and oriented x 3 Genitourinary: Urostomy in place with clear yellow urine. Significant portion of ureteral stent is seen within the urostomy. Results & Data Vital Signs (Past 12 Hours) Vital Signs Temp Pulse Pulse Resp BP Pulse Ox O2 Del Method 03/13/24 07:21 Room Air 03/13/24 07:10 36.7 C 51 L 16 110/58 L 96 Room Air 03/12/24 21:48 36.5 C 63 18 103/51 L 98 Room Air 03/12/24 20:30 54 L 18 101/51 L 96 Room Air PG Care Time/CCT Total # of Minutes Spent Total Time Spent with Patient: Total time spent is greater than 50% in coordination of care (as documented) at patient's floor/unit and/or counseling patient: Coding Level of Care Code 19328 INT INP/OBS CARE 2/55MIN Diagnoses Primary bladder malignant neoplasm C67.9 Displacement of indwelling ureteral stent, sequela T83.122S Presence of urostomy Z93.6 UTI (urinary tract infection) N39.0
[2024-03-13 08:04] LABS: Hematocrit (blood only) 30.2 % (42.0-52.0); Hemoglobin 10.1 g/dl (14.0-18.0); Mean Corpuscular Hemoglobin 28.5 pg (25.0-34.0); Mean Corpuscular Hgb Conc 33.4 g/dL (32.0-36.0); Mean Corpuscular Volume 85.3 fL (80.0-100.0); Mean Platelet Volume 9.5 fL (9.4-12.4); Platelet Count 123 K/uL (130-400); RDW Coefficient of Variation 13.3 % (11.5-14.5); RDW Standard Deviation 41.7 fL (36.4-46.3); Red Blood Count 3.54 M/uL (4.70-6.10); White Blood Count 6.14 K/ul (4.8-10.8)
[2024-03-13 08:21] LABS: BUN Creatinine Ratio 15.7 (10-20); Calcium 8.2 mg/dl (8.6-10.3); Creatinine Clr Calc Pharmacy 37.9 ml/min; Potassium 3.7 mmol/L (3.5-5.1)
[2024-03-13] MEDS: DOCUSATE SODIUM 100 MG CAP PO SCH (08:59)
[2024-03-13] MEDS: SENNA 8.6 MG TAB PO SCH (08:59)
--- NOTE | 2024-03-13 11:22 | Hospitalist Progress Note ---
Date of Service March 13, 2024 Assessment & Plan (1) Displacement of indwelling ureteral stent, sequela: Plan: 78yo male with history of bladder cancer s/p radical cystectomy with ilial conduit, right sided ureteral stent presenting with right flank pain and fever. Patient has had some issues with his urostomy tube moving out of his stoma and has been pushing it back in. Possible infection. Patient with hydronephrosis, displacement of right sided ureteral stent. -Urology consultation appreciated -Monitor I/O -Keep NPO for now for possible stent exchange -Continue gentle IVF - NSS at 80mL/hr x 2L ordered -Tylenol PRN pain or fever -Zofran PRN nausea -Follow cultures, blood and urine sent from the ER -Zosyn 4.5gm IV q 8h (2) Presence of urostomy: Plan: Patient with history of high grade urothelial malignancy s/p radical cystectomy with ileal conduit formation. He follows with Urology. Reports some malfunction of his urostomy tube. ?secondary to displaced stent. Patient reports normal UOP with no blood or sediment -Urology consultation appreciated for evaluation fo Urostomy tube as well as stent displacement -Continue IVF, Tylenol and Zofran PRN (3) UTI (urinary tract infection): Plan: Suspected UTI due to displacement of right ureteral stent 4+ bactereia continue antibiotics (4) HOLGER (acute kidney injury): Plan: Possible HOLGER due to displaced right ureteral stent causing hydronephrosis Monitor renal function Plan Chronic Medical Conditions: CAD - patient denies chest pain -Continue Atorvastatin -Hold ASA for possible intervention in AM SRI - patient reports compliance with CPAP -CPAP qHS Constipation -Continue Senna 8.6mg po qAM -PRN Miralax and Magnesium hydroxide F/E/N - NSS at 80mL/hr x 2 bags, electrolytes WNL, NPO for now Ppx - SCDs to bilateral LE Code - Full Dispo - Admit to medical Admission and Anticipated Discharge Date Admission Date: March 12, 2024 Subjective patient seen and examined, no new complaints Review of Systems Review of Systems: All systems reviewed are negative, apart from the ones contained in the history. Physical Exam Physical Exam: The patient is awake, alert and oriented 3, well developed and well nourished, normocephalic and atraumatic, lying in bed and in no acute distress. HEENT--PERRL, EOMI, mucous membranes and oropharynx mildly dry Neck--supple. No JVD. No bruits. Thyroid normal, trachea midline, no adenopathy. Heart--normal S1 and S2. No murmurs, rubs or gallops. Lungs--clear bilaterally, no respiratory distress, no accessory muscle use. Abdomen--normal bowel sounds and soft. Extremities--no cyanosis or clubbing. No edema. Dermatologic--normal skin turgor, normal color, no abnormal lymph nodes, no rash. Neurologic--cranial nerves II through XII grossly intact. Rheumatologic--normal range of motion. Psychiatric--normal affect. Results & Data Results & Data Vital Signs (Past 12 Hours) Vital Signs Temp Pulse Resp BP Pulse Ox O2 Del Method 03/13/24 07:21 Room Air 03/13/24 07:10 98.1 F 51 L 16 110/58 L 96 Room Air PG Care Time/CCT Total # of Minutes Spent Total Time Spent with Patient: Total time spent is greater than 50% in coordination of care (as documented) at patient's floor/unit and/or counseling patient: Coding Level of Care Code 68362 SUB INP/OBS CARE 2/35MIN Diagnoses Displacement of indwelling ureteral stent, sequela T83.122S Presence of urostomy Z93.6 UTI (urinary tract infection) N39.0 HOLGER (acute kidney injury) N17.9 Time Spent (min) 35
--- NOTE | 2024-03-13 12:55 | Anesthesiology Consultation ---
Date of Service March 13, 2024 Assessment & Plan Chart Review Chart Review: Acceptable Risk for Surgery and Patient NOT seen in Pre Admission Testing History Surgery Operation Date: 03/13/24 08:00 Proposed Procedures p Cystoscopy, Right Ureteral Stent Exchange - Nimesh Garg MD Height/Weight Height: 5 ft 8 in Weight: 76.4 kg Allergies Allergy/AdvReac Type Severity Reaction Status Date / Time No Known Drug Allergies Allergy Mild Verified 11/29/23 13:52 Medications Home Medications Medication Instructions Recorded Confirmed Last Taken coenzyme Q10 100 mg capsule 100 mg PO HS 01/30/18 11/29/23 04/20/23 (CoQ-10) vitamin E 670 mg (1,000 unit) 1,000 unit PO HS 01/30/18 11/29/23 04/20/23 capsule biotin 2,500 mcg capsule 2,500 mcg PO HS 06/21/18 11/29/23 04/20/23 iron,carbonyl 65 mg-vitamin C 125 1 tab PO HS 07/04/18 11/29/23 04/20/23 mg tablet,delayed release (Vitron-C) vitamin B complex (B 1 tab PO HS 11/09/18 11/29/23 04/20/23 Complex-Vitamin B12 tablet) glucosamine sulf dipot 1 cap PO HS 11/12/21 11/29/23 04/20/23 chlr,msm,chond 550 mg-C 30 mg-rex 1 mg capsule (Glucosamine Chondroitin) aspirin 81 mg tablet,delayed 81 mg PO QPM 01/05/22 11/29/23 04/20/23 release (Kallie Low Dose Aspirin) atorvastatin 80 mg tablet 80 mg PO HS #90 tabs 05/30/23 11/29/23 Unknown sertraline 100 mg tablet (Zoloft) 100 mg PO HS #90 tabs 11/02/23 11/29/23 Unknown magnesium oxide 400 mg PO DAILY 11/29/23 11/29/23 Unknown mv-mn-folic 200 mcg-vit K 15 1 cap PO DAILY 11/29/23 11/29/23 Unknown mcg-lutein 5 mg-zeaxanthin 1 mg capsule (PreserVision AREDS 2 Plus Multivit) Active Medications Generic Name Dose Route Start Last Admin Trade Name Freq PRN Reason Stop Dose Admin Acetaminophen 650 mg 03/12/24 21:44 03/13/24 02:11 Acetaminophen 325 Mg Tab PO 04/11/24 21:43 650 mg Q4H PRN Administration pain/fever Docusate Sodium 100 mg 03/13/24 09:00 03/13/24 08:59 Docusate Sodium 100 Mg Cap PO 04/12/24 08:59 100 mg BID NINA Administration Sodium Chloride 1,000 mls @ 80 mls/hr 03/13/24 00:01 03/13/24 10:48 Nss IV 03/14/24 01:00 80 mls/hr .[id number] NINA Administration Piperacillin Sod/Tazobactam Sod 4.5 gm in 100 mls @ 25 mls/hr 03/12/24 22:00 03/13/24 10:00 Zosyn IV 03/22/24 21:59 Infused Q8H NINA Infusion Protocol Sennosides 8.6 mg 03/13/24 09:00 03/13/24 08:59 Senna 8.6 Mg Tab PO 04/12/24 08:59 8.6 mg QAM NINA Administration Past Medical History Medical History History of COVID-19 diagnosed 03/15/23 via home test--fatigue, nasal congestion, loss of appetite--resolved, no symptoms now Neuropathy Anxiety History of blood transfusion 2008 d/t bleeding in bladder per pt CAD (coronary artery disease) Stents x6 (S/2005) HLD (hyperlipidemia) Lumbar spondylosis Sleep apnea CPAP (compliant) Depression with anxiety Bladder cancer 2013 - TURBT 2017. 05/2022 total cystectomy w/ ileal conduit formation. ongoing immunotherapy. Chronic back pain Prostate cancer 2005 > prostatectomy Anemia chronic Hearing deficit wears hearing aids Past Family History Family History Mother , Age 90 Congestive heart failure Anxiety disorder Depression Father , Age 79 Malignant melanoma of skin Heart disease Leukemia Myocardial infarction Brother Prostate cancer Spindle cell sarcoma Melanoma Other Cancer Denies family history of Ovarian cancer Breast cancer Colorectal cancer Past Surgical History Surgical History History of carpal tunnel surgery of right wrist 04-21-23 R wrist History of carpal tunnel surgery of left wrist S/P ileal conduit H/O total cystectomy w/ ileal conduit formation Status post right hip replacement History of left hip replacement 12-02-21 S/P L MIGUEL with Dr Mcfarland S/P hip replacement Right MIGUEL (07/07/21): SAB at L3/4 x1 attempt at [facility]. No issues noted per post-op anesthesia progress note. History of tooth extraction S/P LASIK surgery of both eyes H/O cataract removal with insertion of prosthetic lens bilat History of colonoscopy with polypectomy 02/14/2019 anesthesia progress note: "The patient came to the PACU coughing with an 02 sat of 91. His breath sounds were coarse. He was given a duoneb treatment with almost complete resolution of his coughing, his 02 sat rudi to 100% and he felt much better. I presume that he aspirated saliva as there was no apparent aspiration during the procedure. The patient was presumed to have aspirated saliva and a CXR was odered which was read as no acute disease.He was coached to cough and deep breathe and he was discharged with a room air sat of 99%. He was discharged with an incentive spirometer and instructed to call Dr. Valencia or go to the ED if he develops a fever." No subsequent issues upon chart review, confirmed by pt at 2020 PAT appointment. History of wisdom tooth extraction History of repair of inguinal hernia Open Left Indirect Inguinal Hernia repair 10/17/2018: LMA#4, atraumatic. No issues per anesthesia progress note. History of open reduction and internal fixation (ORIF) procedure right ankle--hardware in place History of prostate biopsy malignant History of biopsy of bladder x2 History of esophagogastroduodenoscopy (EGD) History of right inguinal hernia repair History of cystoscopy multiple d/t bladder cancer History of bladder surgery x2; TURBT on 02/14/2018: LMA #4, atraumatic x 1. No issues per anesthesia progress note. H/O radical prostatectomy 2005 History of tonsillectomy and adenoidectomy History of detached retina repair right x2 History of vitrectomy x2 (right) History of cardiac cath 2006, was having upper repiratory problems/neck pain-turned out to be angina, with 6 stents @ [facility] Social History Smoking Status: Former smoker tobacco type: cigarettes Do You Dip or Chew Tobacco: No Hx Alcohol Use: Yes Alcohol type: beer, wine, hard liquor and other alcohol intake frequency: a few times a week Hx Substance Use: No substance use type: does not use Physical Exam Vital Signs Last Vital Signs Temp 36.7 C 03/13/24 07:10 Pulse 51 L 03/13/24 07:10 Resp 16 03/13/24 07:10 BP 110/58 L 03/13/24 07:10 Pulse Ox 96 03/13/24 07:10 O2 Del Method Room Air 03/13/24 07:21 Testing Laboratory Results 03/13/24 07:33 03/13/24 07:33 Urine Color Yellow 03/12/24 16:13 Urine Appearance Cloudy (Clear) A 03/12/24 16:13 Urine pH 6.5 (4.5-7.5) 03/12/24 16:13 Ur Specific [place] 1.009 (1.000-1.030) 03/12/24 16:13 Urine Protein 1+ (Negative) H 03/12/24 16:13 Urine Glucose (UA) Negative (Negative) 03/12/24 16:13 Urine Ketones Negative (Negative) 03/12/24 16:13 Urine Nitrite Negative (Negative) 03/12/24 16:13 Ur Leukocyte Esterase 3+ (Negative) H 03/12/24 16:13 Urine WBC (Auto) >50 /hpf (0-5) H 03/12/24 16:13 Urine RBC (Auto) 0-2 /hpf (0-2) 03/12/24 16:13 U Hyaline Cast (Auto) 11-20 /lpf (0-2) H 03/12/24 16:13 U Epithel Cells (Auto) 0-2 /hpf (0-2) 03/12/24 16:13 Urine Bacteria (Auto) 4+ (None Seen) H 03/12/24 16:13 03/12/24 16:13 Urine Culture - Final Urine,Clean Catch Three types of organisms present, all high counts. Repeat collection recommended. No further identifications or sensitivities to follow.
[2024-03-13] MEDS ORDERED: ATROPINE SULFATE 0.1 MG/ML 10ML SYR IV PRN (15:35)
[2024-03-13] MEDS ORDERED: fentaNYL citrate PF 100 MCG/2 ML VIAL IV PRN (15:35)
[2024-03-13] MEDS ORDERED: ONDANSETRON INJ 2 MG/ML 2 ML VIAL IV PRN (15:35)
[2024-03-13] MEDS ORDERED: ePHEDrine sulfate 50 MG/ML AMP IV PRN (15:35)
[2024-03-13] MEDS ORDERED: HYDROmorphone INJ 1 MG/ML SYRINGE IV PRN (15:35)
[2024-03-13] MEDS ORDERED: KETOROLAC 30 MG/ML VIAL ONE (15:49)
[2024-03-13] MEDS ORDERED: ONDANSETRON INJ 2 MG/ML 2 ML VIAL ONE (15:49)
[2024-03-13] MEDS ORDERED: PROPOFOL IV EMULSION 10 MG/ML 20 ML VIAL IV ONE (15:49)
[2024-03-13] MEDS ORDERED: DEXAMETHASONE SOD INJ 4 MG/ML VIAL ONE (15:49)
[2024-03-13] MEDS ORDERED: LIDOCAINE 2% 2 ML VIAL/AMP(20MG/ML) INFIL ONE (15:49)
[2024-03-13] MEDS ORDERED: MIDAZOLAM HCL 1 MG/ML 2ML VIAL ONE (15:52)
[2024-03-13] MEDS ORDERED: fentaNYL citrate PF 100 MCG/2 ML VIAL ONE (15:53)
[2024-03-13] MEDS ORDERED: ePHEDrine sulfate 50 MG/ML AMP ONE (16:38)
--- NOTE | 2024-03-13 16:56 | Operative Report ---
PG Post Operative Report Pre & Post Diagnosis Operation Date: 03/13/24 08:00 Pre-Op Diagnosis: bilateral hydronephrosis, displaced right ureteral stent Post-Op Diagnosis: bilateral hydronephrosis, displaced right ureteral stent I identified the patient and participated in the time-out.: Yes Procedure Operation Date: 03/13/24 08:00 Actual Procedures p Cystoscopy, left ureteral stent insertion(Left) - Nimesh Garg MD Surgeon Nimesh Garg MD Last Pattern Grader none Estimated Blood Loss 0 Findings Consistent with Post-Op Diagnosis Specimens none Description of Procedure Patient was identified in the preoperative holding area and appropriate informed consents reviewed and completed. He was transported to the operating suite. Upon arrival his stoma device was removed, sedation was achieved and he was placed in supine position. I began by doing a fluoroscopic evaluation of his stoma. He has a substantial amount of stent protruding from the stoma and inspection revealed that there appeared to be coiled stent within the stoma itself. I did attempt to pass a wire through it on the off chance that the tip of the stent was still within the ureter. Unfortunately it was not and the wire coiled within the stoma and ultimately protruded through the orifice. This implies that the stent has completely migrated out of the ureter. I removed the stent and I utilized a flexible cystoscope and passed it per the ostomy. Inspection of the ostomy was conducted beginning from the most superficial aspect of the ostomy and progressing towards the end of the conduit. I could not definitively identify a right ureteral orifice. I did identify an orifice towards the end of the conduit which I suspected was the left side. I was able to pass a wire through this and advance that wire to the left kidney confirming the left ureteral orifice was in fact what we identified. Given his concurrent left hydronephrosis, I proceeded to place an 8 Polish left diversionary stent with a good curl in the kidney and a substantial amount of redundant stent protruding from the stoma. I rescoped the stoma and attempted to identify a right orifice. I again was unsuccessful in this endeavor. After numerous efforts and exploration of different dimples and folds within the conduit I elected to abort placement of the right ureteral stent. I am uncertain that the left ureteral stent will drastically alter his renal function or situation, he may ultimately require transfer back to a tertiary center for nephrostomy/nephroureteral stent placement. He was very understanding of this possibility headed into the procedure. I attest to the content of the Intraoperative Record and any orders documented therein. Any exceptions are noted below.
--- NOTE | 2024-03-13 18:24 | Anesthesiology Progress Note ---
Date of Service March 13, 2024 Anesthesia Post Procedure Vital Signs Vital Signs: Temp Pulse Pulse Resp BP Pulse Ox O2 Del Method 03/13/24 18:02 36.4 C L 62 16 137/73 90 Room Air 03/13/24 17:30 36.6 C 59 L 16 133/47 L 93 Room Air 03/13/24 17:15 37.0 C 62 14 122/58 L 94 Room Air 03/13/24 17:05 65 12 117/57 L 95 Room Air 03/13/24 16:55 37.0 C 69 19 118/50 L 92 Room Air 03/13/24 15:20 36.6 C 50 L 20 109/59 L 96 Room Air 03/13/24 07:21 Room Air 03/13/24 07:10 36.7 C 51 L 16 110/58 L 96 Room Air 03/12/24 21:48 36.5 C 63 18 103/51 L 98 Room Air 03/12/24 20:30 54 L 18 101/51 L 96 Room Air Transfer of Care Handoff Completed per policy Notes Mental Status: alert / awake / arousable and participated in evaluation Patient Amnestic to Procedure: Yes Nausea / Vomiting: adequately controlled Pain: adequately controlled Airway Patency, RR, SpO2: stable & adequate BP & HR: stable & adequate Hydration State: stable & adequate Anesthetic Complications: no major complications apparent and Pt Satisfied with anesthetic care
[2024-03-13 19:46] VITALS: RESP 18
[2024-03-13] MEDS: ATORVASTATIN 40 MG TAB PO SCH (21:10)
[2024-03-13] MEDS: SERTRALINE HCL 100 MG TABLET PO SCH (21:10)
[2024-03-14 04:08] VITALS: O2SAT 96
--- NOTE | 2024-03-14 06:59 | Fluoroscopy Report ---
FL KUB CLINICAL HISTORY: LT STENT COMPARISON STUDY: CT of the abdomen and pelvis March 12, 2024. FLUOROSCOPY TIME: 20. Ka,r: 4.27 mGy FLUOROSCOPIC IMAGES: 2 FINDINGS: Fluoroscopy was provided during cystoscopy and left ureteral stent placement. Proximal aspe ct of the left ureteral stent projects over the left renal pelvis. Distal aspect is likely within the urostomy. IMPRESSION: Fluoroscopy provided during cystoscopy and left ureteral stent placement. ACT 112: Negative or not required by law. Electronically signed by: Ronak Ventura M.D. 03/14/2024 6:58 AM
[2024-03-14 07:34] VITALS: BP 126/63; PULSE 45; TEMP 97.9
--- NOTE | 2024-03-14 08:12 | Urology Progress Note ---
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 He is s/p cystoscopy and left ureteral stent placement. Right stent was unable to be exchanged due to complete displacement from the right ureter into his urostomy. Patient afebrile and hemodynamically stable. No new labs at time of visit today. Urine culture did not identify any specific bacteria. Blood cultures no growth x 24 hours. Continue with broad-spectrum antibiotics and narrow per sensitivity data when available. Continue supportive care and medical management per hospital team. Uncertain if left ureteral stent will drastically alter his renal function or situation He may ultimately require transfer back to a tertiary center for nephrostomy/nephroureteral stent placement, but can likely be done on outpatient basis if renal function is stable. will sign off, recall as needed. Admission and Anticipated Discharge Date Admission Date: March 12, 2024 Subjective Patient seen and examined at bedside this morning. He is awake and resting in bed no acute issues overnight. Reports some pelvic discomfort. Urostomy patent and draining appropriately. Denies nausea, vomiting, fever or chills. Review of Systems Constitutional: as per Subjective / HPI Genitourinary: + as per Subjective / HPI Physical Exam Constitutional: no acute distress Respiratory: normal respiratory effort; no respiratory distress and no labored breathing Gastrointestinal (Abdomen): Inspection/Auscultation: abdomen normal to inspection Musculoskeletal: Head/Neck/Chest: normocephalic Neurologic: moves all extremities and awake Psychiatric: Orientation: alert and oriented x 3 Genitourinary: Urostomy in place with clear yellow urine. Results & Data Vital Signs (Past 12 Hours) Vital Signs Temp Pulse Resp BP Pulse Ox O2 Del Method 03/14/24 07:34 36.6 C 45 L 18 126/63 96 Room Air 03/14/24 03:00 36.5 C 48 L 18 127/65 96 Room Air 03/13/24 23:00 36.5 C 49 L 18 113/49 L 93 Room Air 03/13/24 20:30 36.4 C L 58 L 18 119/66 94 Room Air PG Care Time/CCT Total # of Minutes Spent Total Time Spent with Patient: Total time spent is greater than 50% in coordination of care (as documented) at patient's floor/unit and/or counseling patient: Coding Level of Care Code 98933 SUB INP/OBS CARE 04/21MIN Diagnoses Presence of urostomy Z93.6 Displacement of indwelling ureteral stent, sequela T83.122S UTI (urinary tract infection) N39.0 HOLGER (acute kidney injury) N17.9
[2024-03-14 10:16] LABS: Calcium 8.5 mg/dl (8.6-10.3); Creatinine Clr Calc Pharmacy 39.4 ml/min; Potassium 3.8 mmol/L (3.5-5.1)
--- NOTE | 2024-03-14 12:38 | Discharge Summary ---
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 Patient with with right sided ureteral stent. Urostomy tube in place. He reports that over the last several weeks he has had a gradual malpositioning of his urostomy tube. He has had the tube come out of the stoma several inches and has been pushing it back in. He also reports removing his bag and letting the urostomy tube drain onto a towel. He developed fever two days ago as well as weakness and fatigue. He denies flank pain. Urine in the bag has been of usual amount, clean with no reported sediment or blood. No additional complaints - patient denies chest pain, cough, SOB, vomiting or diarrhea. In the ER patient is afebrile, HD stable and HD stable. Patient was replacing his Urostomy bag at the time of my encounter. Per ER team - this case was discussed with Urology prior to admission. Admission was recommended and patient will likely have stent replaced in AM. ER Course: NSS x 1L Tylenol 1gm Zosyn 4.5gm Admission Exam (Per Admitting) Constitutional The patient is awake, alert and oriented 3, well developed and well nourished, normocephalic and atraumatic, lying in bed and in no acute distress. HEENT--PERRL, EOMI, mucous membranes and oropharynx mildly dry Neck--supple. No JVD. No bruits. Thyroid normal, trachea midline, no adenopathy. Heart--normal S1 and S2. No murmurs, rubs or gallops. Lungs--clear bilaterally, no respiratory distress, no accessory muscle use. Abdomen--normal bowel sounds and soft. Extremities--no cyanosis or clubbing. No edema. Dermatologic--normal skin turgor, normal color, no abnormal lymph nodes, no rash. Neurologic--cranial nerves II through XII grossly intact. Rheumatologic--normal range of motion. Psychiatric--normal affect. Discharge Data Consultations 03/12/24 19:05 ED Decision to Admit Stat 03/12/24 21:44 Consult Urology Routine Procedures Performed Operation Date: 03/13/24 08:00 Actual Procedures p Cystoscopy, left ureteral stent insertion(Left) - Nimesh Garg MD Hospital Course (1) Displacement of indwelling ureteral stent, sequela: 78yo male with history of bladder cancer s/p radical cystectomy with ilial conduit, right sided ureteral stent presenting with right flank pain and fever. Patient has had some issues with his urostomy tube moving out of his stoma and has been pushing it back in. Possible infection. Patient with hydronephrosis, displacement of right sided ureteral stent. -Urology consultation appreciated -The left ureteral stent was succesfully placed, however the right was not -Plan is for outpatient follow up with [facility] for the right ureteral stent (2) Presence of urostomy: Patient with history of high grade urothelial malignancy s/p radical cystectomy with ileal conduit formation. He follows with Urology. Reports some malfunction of his urostomy tube. ?secondary to displaced stent. Patient reports normal UOP with no blood or sediment -Urology consultation appreciated for evaluation fo Urostomy tube as well as stent displacement -Continue IVF, Tylenol and Zofran PRN (3) UTI (urinary tract infection): Suspected UTI due to displacement of right ureteral stent 4+ bactereia continue antibiotics (4) HOLGER (acute kidney injury): Possible HOLGER due to displaced right ureteral stent causing hydronephrosis Monitor renal function Plan Chronic Medical Conditions: CAD - patient denies chest pain -Continue Atorvastatin -Hold ASA for possible intervention in AM SRI - patient reports compliance with CPAP -CPAP qHS Constipation -Continue Senna 8.6mg po qAM -PRN Miralax and Magnesium hydroxide F/E/N - NSS at 80mL/hr x 2 bags, electrolytes WNL, NPO for now Ppx - SCDs to bilateral LE Code - Full Dispo - d/c home. follow up with [facility] Coding Level of Care Code 85074 INP/OBS DISCH >30 MIN Diagnoses Displacement of indwelling ureteral stent, sequela T83.122S Presence of urostomy Z93.6 UTI (urinary tract infection) N39.0 HOLGER (acute kidney injury) N17.9 Time Spent (min) 35
== END 2024-03-14 14:17 | disposition home or self-care (01) | DRG 660 ==
LOC: ED 14:33 → 3W 20:21 → SUATTDRO 20:21 → 3W 20:59